=== PATIENT | male | born 1945 | race Caucasian/White ===

== ENCOUNTER 2023-09-09 08:53 | Outpatient (CLI) | payer MEDICARE, BC, SELFPAY ==
--- NOTE | 2023-09-09 | ECHO_ITS ---
Patient Info Name: Moy Tabares Age: 77 years : 1945 Gender: Male Ht: 62 in Wt: 184 lbs BSA: 1.95 m2 HR: 52 bpm BP: 167 / 77 mmHg Heart Rhythm: Sinus Rhythm Technical Quality: Fair Exam Date: 09/09/2023 9:15 AM Exam Location: Echo Lab Patient Status: Outpatient Admit Date: 09/09/2023 Staff Ordering Physician: GeovanniJas MD Agent Licensing Clerk: Samantha Dent RDCS Attending Provider: GeovanniJas MD Exam Type: CA echo doppler color flow Study Info Indications R01.1 - Cardiac murmur, unspecified Complete two-dimensional, color flow and Doppler transthoracic echocardiogram is performed. Summary 1. Complete two-dimensional, color flow and Doppler transthoracic echocardiogram is performed. 2. Normal left ventricular size and systolic contractility. 3. Grade 1 diastolic noncompliance. 4. Mildly sclerotic aortic valve with adequate leaflet excursion. Left Ventricle Left ventricular chamber dimension is normal. Left ventricular systolic function is normal, estimated at 60-65%. The left ventricular diastolic function is grade I diastolic dysfunction. Right Ventricle Right ventricular chamber dimension is normal. Left Atria Left atrial chamber dimension is mildly enlarged. Right Atria Right atrial chamber dimension is normal. Aortic Valve The aortic valve is trileaflet. There is mild aortic valve sclerosis. Pulmonic Valve The pulmonic valve is normal. Mitral Valve The mitral valve has normal leaflets. Tricuspid Valve The tricuspid valve leaflets are normal. There is trace tricuspid valve regurgitation. Pericardium/Pleural The pericardium appears normal. Aorta The aortic root size at the sinus of Valsalva is normal. Left Ventricular Outflow Tract Name Value Normal LVOT 2D LVOT Diameter 2.0 cm LVOT Doppler LVOT Peak Gradient 8 mmHg LVOT Mean Gradient 4 mmHg LVOT VTI 30 cm LVOT VTI/AV VTI Ratio 0.8 LVOT Stroke Volume 93 ml LVOT CO 5.6 l/min LVOT CI 2.9 l/min/m2 Pulmonic Valve Name Value Normal RVOT Doppler RVOT Peak Gradient 4 mmHg PV Doppler PV Peak Gradient 4 mmHg Mitral Valve Name Value Normal MV Doppler MV Decel [place] 315 cm/s2 MV PHT 79 ms MV Area (PHT) 2.8 cm2 4.0-5.0 MV Diastolic Function
== END 2023-09-09 08:54 | disposition home or self-care (01) ==
LOC: ANHCARD 09:01
PROVIDERS: PCP Internal Medicine; Visit Provider Internal Medicine
DX: R01.1 Cardiac murmur, unspecified (principal); I35.8 Other nonrheumatic aortic valve disorders
CPT/HCPCS: 93306

== ENCOUNTER 2023-09-16 14:44 | Outpatient (CLI) | payer MEDICARE, SELFPAY ==
--- NOTE | ~2023-09-16 | CT_ITS ---
Non-contrast CT scan of the Abdomen and Pelvis Clinical indication: Incisional hernia Technique: 2.5 mm axial scans were obtained through the abdomen and pelvis without intravenous or or al contrast. Dose reduction technique was used on this scan by utilizing automated exposure control a nd iterative reconstruction technique. The dose-length product (DLP) was 1365.87 mGy-cm. Findings: Images through the lung bases reveal no abnormalities. There is no evidence of renal or ureteral calculi. The kidneys and the ureters are nondilated. The liver, spleen, pancreas, gallbladder, and adrenals appear normal. There are atherosclerotic calci fications of the aorta. There is no evidence of bowel obstruction. There is a small to moderate fat-containing umbilical oracio ia which also contains one wall of focal loop of small bowel. Images through the pelvis were performed. There is no evidence of ascites or lymphadenopathy. Evidenc e of prior probable prostatectomy. Possible bladder mass in the posterior bladder versus residual pro state gland measuring 2.2 cm in diameter. Impression: 2.2 cm posterior inferior bladder mass versus possibly residual prostate gland. Evidence of prior pro statectomy. Correlate clinically. Cystoscopy should be considered for further evaluation. Small to moderate fat-containing umbilical hernia which also contains one wall of a focal loop of sma ll bowel. No bowel wall thickening or obstruction. Reviewed, dictated and finalized at [facility]. Impression: 2.2 cm posterior inferior bladder mass versus possibly residual prostate gland. Evidence of prior prostatectomy. Correlate clinically. Cystoscopy should be co nsidered for further evaluation. Small to moderate fat-containing umbilical hernia which also contains one wall of a focal loop of small bowel. No bowel wall thickening or obstruction.
== END 2023-09-16 14:45 | disposition home or self-care (01) ==
PROVIDERS: PCP Internal Medicine; Visit Provider Surgery
DX: K43.2 Incisional hernia without obstruction or gangrene (principal); K42.9 Umbilical hernia without obstruction or gangrene
CPT/HCPCS: 74176

== ENCOUNTER 2023-11-04 12:48 | Outpatient (CLI) | payer MEDICARE, SELFPAY ==
--- NOTE | 2023-11-04 13:24 | ECG_ITS ---
Test Date: 2023-11-04 13:46:20 Measurements Intervals [place] Rate: 61 P: 109 IA: 170 QRS: -1 QRSD: 94 T: 50 QT: 391 QTc: 395 Interpretive Statements SINUS RHYTHM EARLY PRECORDIAL R/S TRANSITION VOLTAGE CRITERIA FOR LVH CONSIDER INFERIOR INFARCT, AGE INDETERMINATE BASELINE ARTIFACT- I, II, III, AVR, AVL, AVF, V1-V6 ABNORMAL ECG No previous ECG available for comparison Electronically Signed On 11-04-2023 14:30:44 CDT by José Miguel Guzman D.O.
== END 2023-11-04 12:49 | disposition home or self-care (01) ==
LOC: ANHSURGERY 12:54
PROVIDERS: PCP Internal Medicine; Visit Provider Surgery
DX: I10 Essential (primary) hypertension (principal); Z98.890 Other specified postprocedural states; Z01.818 Encounter for other preprocedural examination; R94.31 Abnormal electrocardiogram [ECG] [EKG]
CPT/HCPCS: 36415; 86850; 86900; 86901; 93005

== ENCOUNTER 2023-11-07 14:24 | Inpatient (IN) | payer MEDICARE, SELFPAY ==
--- NOTE | 2023-11-01 14:16 | PC.NURSE ---
Report to the Outpatient Waiting Room, entrance under the green pavilion located off [facility], at time _8:30 AM on date __11/06/23 . Planned Procedure Time: _10:30 AM . Time changes happen often and if your time is changed the preop area will call you the afternoon before. - You and your visitor will be asked to self-screen and do not enter if you have any COVID symptoms. - A mask is optional within the hospital at this time. Patients may have clear liquids (water, carbonated beverages, clear teas, apple juice) until 3 hours prior to surgery( 7: 30 AM) with a maximum of 20 ounces. - No food from midnight until time of surgery - Infants may have breast milk until 4 hours before surgery, formula 6 hours prior to surgery. - Children will be allowed to drink immediately following surgery. If applicable, please bring a bottle or sippy cup to assist with drinking. Juice, water, soda, and popsicles are readily available. For infants on formula, please bring formula the day of surgery. Pacifiers are allowed. Take the following medications with a SIP of water the morning of surgery: __NONE DO NOT STOP ANY OF YOUR OTHER PRESCRIPTION MEDICATIONS PRIOR TO SURGERY ?EXCEPT THE FOLLOWING Medications to discontinue per physician HOLD ALL VITAMINS AND SUPPLEMENTS 3 DAYS PRE OP .LAST DOSE 11/02/23 MAY CONTINUE [address] GARIBAY BUT DO NOT TAKE MORNING OF SURGERY Please no make-up, nail gabonese, hairspray, perfume, deodorant, or body powder the day of surgery. No jewelry (including any body piercings) or valuables the day of surgery, leave them at home. Please take a shower or bath the night before, or the morning of, surgery with an antibacterial soap. Wear comfortable, loose fitting clothing. Children are encouraged to wear pajamas. - Jewelry must be removed prior to entering the operating room. Rings and piercings that are not removed may be cut off. - The hospital will not accept responsibility for valuables. - Please leave all valuables, including medications, at home the day of surgery. If you are going home after surgery, a licensed electric truck driver must drive you home. - NO public transportation without another adult if you receive anesthesia. - We recommend that an adult stay with you for 24 hours following discharge. - We also recommend that you do not drive, make important decision, drink alcoholic beverages, or take any drugs that were not prescribed by your health care provider for at least 24 hours after your discharge time. For Pediatric surgeries, we recommend two adults accompany the child home. Follow any additional instructions given to you from your surgeon. If you or anyone in your household have experienced Covid symptoms in the past week, please notify your surgeon or the nurse liaison at the phone number below for possible testing. Telephone instructions given to ____PATIENT and asked if any additional questions and then verbalized understanding. Patient advised to call surgeon office or pre surgery nurse liaison [phone] if any additional questions.
[2023-11-01 14:29] VITALS: BMI 33.8
[2023-11-06] VITALS (16 sets, daily range): BP systolic 129–168; BP diastolic 45–86; PULSE 63–83; RESP 16–22; TEMP 36.3–36.9; O2SAT 98–100
[2023-11-06] MEDS: LACTATED RINGERS 1,000 ML 30 ML IV CONT ×3 (09:00→16:45)
--- NOTE | 2023-11-06 09:36 | P.PNAN_ITS ---
Anes - Initial Pre Proc Eval Procedure: Operation Date: 11/06/23 10:30 Proposed Procedures p Robotic Assisted Laparoscopic Extended Totally Extraperitoneal Periumbilical Hernia Repair with Mesh - Neftali Partida MD Date/Time: 11/06/23 09:36 Surgeon: Neftali Partida MD Pre Op Diagnosis: reducible periumbilical ventral hernia repair Patient Data Age: 77 Gender: M Height: 1.57 m Weight: 83.95 kg Allergies Allergy/AdvReac Type Severity Reaction Status Date / Time No Known Allergies Allergy Verified 11/01/23 14:11 Home Medications Medication Instructions Recorded Confirmed Type aspirin 81 mg tablet,delayed 81 mg PO DAILY 09/11/23 11/01/23 History release cholecalciferol (vitamin D3) 50 50 mcg PO DAILY 09/11/23 11/01/23 History mcg (2,000 unit) capsule docosahexaenoic acid (dha)-epa 120 1 cap PO DAILY 09/11/23 11/01/23 History mg-180 mg capsule (Fish Oil) lisinopril 20 mg tablet 20 mg PO DAILY 09/11/23 11/01/23 History mecobalamin (vitamin B12) 1,000 1,000 mcg PO DAILY 09/11/23 11/01/23 History mcg lozenges tamsulosin 0.4 mg capsule 0.4 mg PO DAILY 09/11/23 11/01/23 History Patient hx anesthesia problems: none Family hx anesthesia problems: none Results Review: All pre-operative results and documents have been reviewed as part of the pre- operative evaluation. [facility] Past Medical History Medical History Diabetes Family History Family History Father Heart disease Other Hypertension Social History Social History Smoking packs per day: 1 Smoking cigarettes per day: 20.0 Years smoked: 25 Smoking pack-years: 25.00 Smoking status: Former smoker Tobacco type: cigarettes Smoking end date: 04/08/03 Alcohol intake: never Do You Feel Safe in your Home?: Yes Lack of Transportation: No Lack of Food: Never True Concerned About Future Housing: No Difficulty Paying Gas/Electric Bills: No Difficulty Paying for Meds: No Currently Unemployed: No Education: Grade School Difficulty w/ Childcare or Family Care: No Living arrangements: alone Spiritual care concerns: No Anes - Eval Final PreProcedure Day of Procedure 11/06/23 09:36 Patient weight: obese Heart: regular rate and rhythm Lungs: clear to auscultation Airway: Mallampati scale class II Neurological: alert and oriented Last oral intake: >/= 8 hours ASA classification: III Emergent: no Anesthetic plan: proceed Anesthesia type and monitoring: general ETT and standard monitoring Results Review: All pre-operative results and documents have been reviewed as part of the pre- operative evaluation. Informed Consent: The patient's anesthetic plan and its attendant risks and benefits were discussed with the patient/family/POA. Questions were solicited and answers provided to the satisfaction of the patient/family/POA.
[2023-11-06] MEDS: ACETAMINOPHEN 500 MG TABLET 1000 MG PO ×2 (09:46→21:32)
[2023-11-06] MEDS: KETOROLAC 15 MG/ML VIAL (*BKC) IV PUSH (09:46)
--- NOTE | 2023-11-06 11:04 | PM.IMHP ---
H&P: HPI History of Present Illness Date/Time: 11/06/23 11:04 Chief Complaint: Periumbilical ventral hernia Narrative: RV returns for a recheck of a incisional hernia and to discuss recent CT scan from 09/16/23. Findings showed a small to moderate fat-containing umbilical hernia which also contains one wall of a focal loop of small bowel. No bowel wall thickening or obstruction. Patient denies any abdominal discomfort and no changes since his last office visit. Review of Systems Review of Systems: The remainder of the review of systems to include constitutional, HEENT, cardiovascular, respiratory, GI, , integumentary, musculoskeletal, endocrine, immunologic, hematologic, psychiatric, and neurologic are all negative except for which is mentioned above in the HPI. [facility] Past Medical History Medical History Diabetes Family History Family History Father Heart disease Other Hypertension Social History Social History Smoking packs per day: 1 Smoking cigarettes per day: 20.0 Years smoked: 25 Smoking pack-years: 25.00 Smoking status: Former smoker Tobacco type: cigarettes Smoking end date: 04/08/03 Alcohol intake: never Do You Feel Safe in your Home?: Yes Lack of Transportation: No Lack of Food: Never True Concerned About Future Housing: No Difficulty Paying Gas/Electric Bills: No Difficulty Paying for Meds: No Currently Unemployed: No Education: Grade School Difficulty w/ Childcare or Family Care: No Living arrangements: alone Spiritual care concerns: No Meds Home Medications and Allergies Home Medications Medication Instructions Recorded Confirmed Type aspirin 81 mg tablet,delayed 81 mg PO DAILY 09/11/23 11/06/23 History release cholecalciferol (vitamin D3) 50 50 mcg PO DAILY 09/11/23 11/01/23 History mcg (2,000 unit) capsule docosahexaenoic acid (dha)-epa 120 1 cap PO DAILY 09/11/23 11/01/23 History mg-180 mg capsule (Fish Oil) lisinopril 20 mg tablet 20 mg PO DAILY 09/11/23 11/01/23 History mecobalamin (vitamin B12) 1,000 1,000 mcg PO DAILY 09/11/23 11/01/23 History mcg lozenges tamsulosin 0.4 mg capsule 0.4 mg PO DAILY 09/11/23 11/01/23 History Allergies Allergy/AdvReac Type Severity Reaction Status Date / Time No Known Allergies Allergy Verified 11/06/23 09:47 Vital Signs Vital Signs - 24 hr 11/06/23 09:00 Temperature 36.3 C L Pulse Rate 73 Respiratory Rate 16 Blood Pressure 159/60 H Pulse Oximetry 100 Oxygen Delivery Room Air Exam Const: General: comfortable and no acute distress HENMT: Ears: TM's normal bilaterally Face/Nose/Sinus: Normal nares present Mouth: Yes moist mucous membranes Eyes: General: appearance normal, both eyes and all related structures Sclera: sclerae normal Pupils: Equal, round and reactive pupils present EOM: EOMs intact bilaterally Neck: Neck: supple and no JVD Resp: Effort & Inspection: normal respiratory effort Auscultation: clear to auscultation bilaterally Cardio: Rate: regular rate Rhythm: regular rhythm GI: Other: Soft, nontender. Large infraumbilical midline scar from prostatectomy. He has a large epigastric diastasis measuring 17cm x10cm and reducible periumbilical incisional hernia with a 2-3cm defect. Hernia at the superior portion of incision from open prostatectomy. Skin: General skin exam: normal color and no rashes or lesions noted Neuro: General: gait normal Speech: normal speech Motor exam (neuro): 5/5 motor strength present throughout Sensory Exam: normal sensation Extrem: General: normal to inspection Psych: Mental Status: mental status grossly normal Affect: normal affect H&P: Results Imaging CT scan - abdomen: Radiologist's impression: Non-contrast CT scan of the Abdomen and Pe
--- NOTE | 2023-11-06 11:08 | WPDHPUPDATE1 ---
History and Physical Update Update Date/Time: 11/06/23 11:08 History and Physical has been reviewed, including an updated exam of the patient. There are NO changes in the patient's condition. Risks, benefits, and alternatives have been discussed and questions answered. Patient agrees to proceed with procedure.
[2023-11-06] MEDS: ceFAZolin 2 GM/D5W 50 ML 2 GM/50 ML BAG IVPB (11:22)
[2023-11-06] MEDS: BUPivacaine HCL 0.5% 10 ML AMP 30 ML INFILTRATE (12:10)
[2023-11-06] MEDS: LIDO 1%/EPINEPHRINE 1:100,000 50 ML VIAL 30 ML INFILTRATE (12:10)
--- NOTE | 2023-11-06 14:46 | W.PM.PROC2 ---
Procedure Note - Detailed Date of Procedure 11/06/23 Pre-op Diagnosis Incarcerated periumbilical ventral hernia Post-op Diagnosis Same Procedure Performed Robotic assisted laparoscopic extended total extraperitoneal incarcerated ventral hernia repair with Synecor mesh ( [id number] ). Surgeon Neftali Partida MD [employer] Xavier Jameson [employer] Anesthesia General Indications Patient is a 77-year-old white male who presented with an enlarging bulge just at his umbilicus. He had a prior open prostatectomy surgery port trim lower midline incision. A preoperative CT scan showed some omentum within the hernia sac and the anti mesenteric side of a loop of small bowel within the hernia sac. No obstructive signs were seen. No other ventral hernias are noted. Presents now for a robotic assisted laparoscopic extended total extraperitoneal (ETEP) incarcerated periumbilical ventral hernia repair with Synecor mesh. Findings Patient actually had omentum which was incarcerated within the hernia sac. The hernia was located just at the level of the umbilicus. Did not appear to be associated with a incisional hernia the lower abdominal wall. There was no evidence of bowel involvement with the hernia. The defect measured 3.5cm in diameter. Description of Procedure After informed consent was obtained patient brought to the operating room placed supine position and general endotracheal anesthesia was administered. A Santiago catheter was placed decompress the bladder. The abdomen was then prepped and draped usual sterile fashion. A time-out was then performed correctly identifying the patient as well as procedure to be performed. He was given perioperative IV antibiotics. I first started by utilizine a 5mm Optiview port in the left upper quadrant. to enter the retrorectus space on the left side. Once inside the space insufflated and then used the camera to bluntly dissect the posterior rectus fascia away from the rectus muscle fibers. Once I had enough space laterally and inferior to the initial port placement I then placed an 8mm robotic trocar port. This then allowed me to use laparoscopic hook cautery device to further divide the wispy adventitial tissues the posterior rectus fascia from the rectus muscle fibers. The dissection carried out laterally to the linea semilunaris on the left side. I then placed additional 8mm robotic trocar ports on the left lateral abdominal wall anterior to the linea semilunaris. The [employer] robot was then docked to the patient's bedside and the 5mm left upper quadrant trocar port was switched out to a 12mm bedside economic research assistant trocar port robotic instruments were advanced into the abdomen under direct visualization. I then scrubbed out the procedure sent down the robotic console to perform the dissection robotically. Utilizing robotic hook electrocautery I then further divided the tissues and the posterior rectus fascia from the rectus muscle fibers until medially I encountered the linea alba. Patient a wide linea alba and had a diastasis in the epigastric region of the abdomen. Once I dissected inferiorly below the arcuate line I then was in the pre transversalis space and dissected in the space all the way down to almost the groin region. The inferior epigastric vessels were identified left up with the rectus muscle fibers. I then incised the posterior rectus sheath on the left side about 1cm away from the linea alba. I started cephalad near the xiphoid process and carried it inferiorly all the way to the pubic region. I then did my cross over keeping the epigastric fat pad posterior to keep it from getting into the abdomen. I then incised the posterior rectus sheath on the right side and then divided this about 1cm away from the right side of the linea alba. The posterior rectus space was then dissected out on the right side out laterally to the linea semilunaris taking great care not to injure the neurovasc
[2023-11-06] MEDS: oxyCODONE HCL (*CRX) 5 MG TAB IR PO (16:46)
--- NOTE | 2023-11-06 19:50 | ADMGEN ---
This patient, Asha Tabares, was admitted to Medical Room 349-01. Patient/family oriented to hospital policies and general routines including ID bracelet, bed and alarms, visiting hours, pain management, procedures, bathroom and other care routines, personal items, smoking policy, room service/diet, and visiting hours. Information on how to activate the Rapid Response Team has been discussed. Patient/Family are encouraged to report perceived risks to care and to ask questions if they do not understand what they are told or what they should do.
[2023-11-06 20:30] LABS: Glucose Point of Care 194 mg/dl (65-105)
[2023-11-07] VITALS: BP 139/58; PULSE 59; RESP 20; TEMP 36.7; O2SAT 98
[2023-11-07 04:00] VITALS: BP 149/50; PULSE 69; RESP 20; TEMP 36.1; O2SAT 99
[2023-11-07] MEDS: ACETAMINOPHEN 500 MG TABLET 1000 MG PO (04:15)
--- NOTE | 2023-11-07 05:29 | PC.NURSE ---
Patient has urge to void but cannot. Bladder scan earlier showed 234mls of urine after incontinent episode. Since then patient has called three times to void without results. Straight cath patient with result of 650mls of clear yellow urine. Patient states his bladder feels empty and does not feel the urge to void.
[2023-11-07 08:00] VITALS: BP 135/67; PULSE 60; RESP 18; TEMP 36; O2SAT 96
[2023-11-07] MEDS: lisinopriL 20 MG TABLET PO (08:35)
[2023-11-07] MEDS: TAMSULOSIN HCL 0.4 MG CAPSULE PO (08:35)
[2023-11-07] MEDS: PANTOPRAZOLE 40 MG TABLET PO (08:35)
[2023-11-07] MEDS: ENOXAPARIN 40 MG/0.4 ML SYRINGE SUB-Q (08:35)
[2023-11-07] MEDS: ASPIRIN 81 MG ENTERIC TABLET PO (08:35)
[2023-11-07] MEDS: CHOLECALCIFEROL 1,000 UNITS TABLET 2000 UNITS PO (10:01)
--- NOTE | 2023-11-07 12:41 | PM.PNGS ---
Progress Note: A&P Assessment and Plan (1) Ventral hernia: Qualifiers: Obstruction and gangrene presence: without obstruction or gangrene Qualified Code(s): K43.9 - Ventral hernia without obstruction or gangrene Code(s): K43.9 - Ventral hernia without obstruction or gangrene Status: Acute Assessment and Plan: Postop day 1 following robotic-assisted laparoscopic extended total extraperitoneal incarcerated ventral hernia repair with mesh. Patient is having issues with urinary retention and has had straight cath x 1 early this morning. He continues to have high post void residual, although able to void a small amount this morning. He has a history of prostatectomy, and is currently on Flomax. Will consult Urology for their recommendations on the need for an indwelling urinary catheter and follow-up. Once he is stable from a Urology standpoint to discharge, we would be okay with discharge him home from a surgery standpoint. Plan I have discussed the patient's case and plan of care with Dr. Partida. Subjective Subjective Date/Time Seen: 11/07/23 12:41 Post Op day: 1 (Robotic assisted laparoscopic extended total extraperitoneal incarcerated ventral hernia repair with mesh) Patient reports: tolerating a regular diet, flatus and no bowel movement Interval history: Postop soreness and incisional pain well controlled. Ambulating without difficulty. Urinary retention overnight. Bladder scan over 400 cc last night and he had straight cath that yielded over 600 cc urine. About 5 hours later, bladder scan repeated and showed 440 cc of urine. He was able to urinate about 100 cc. He has a history of a prostatectomy. He is on Flomax, which was already resumed. Exam Const: General: comfortable and no acute distress Orientation/consciousness: patient oriented x3 GI: Inspection: non-distended and incision (incisions dry and intact, no erythema, ecchymosis around umbilicus) GI Palp: Yes Soft to palpation and Yes Other GI palpation findings present (umbilical hernia repair intact) Auscultation: normal bowel sounds Objective Data Vital Signs Vital Signs: Vital Signs - 24 hr 11/06/23 14:45 11/06/23 15:00 11/06/23 15:15 Temperature Pulse Rate 75 72 69 Respiratory Rate 18 22 H 18 Blood Pressure 140/52 L 143/64 H 143/61 H Pulse Oximetry 100 100 100 Oxygen Delivery Simple Face Mask Simple Face Mask Simple Face Mask Oxygen Flow Rate 6 6 8 11/06/23 15:30 11/06/23 15:34 11/06/23 15:45 Temperature Pulse Rate 63 66 73 Respiratory Rate 16 18 20 Blood Pressure 141/59 H 131/56 L Pulse Oximetry 100 100 99 Oxygen Delivery Simple Face Mask Simple Face Mask Room Air Oxygen Flow Rate 8 8 11/06/23 16:00 11/06/23 16:15 11/06/23 16:19 Temperature Pulse Rate 73 65 79 Respiratory Rate 16 16 16 Blood Pressure 135/65 129/63 146/61 H Pulse Oximetry 98 100 Oxygen Delivery Room Air Room Air Oxygen Flow Rate 11/06/23 16:45 11/06/23 17:15 11/06/23 17:45 Temperature Pulse Rate 75 67 83 Respiratory Rate 16 16 16 Blood Pressure 148/45 H 164/61 H 168/86 H Pulse Oximetry Oxygen Delivery Oxygen Flow Rate 11/06/23 18:15 11/06/23 18:45 11/06/23 20:00 Temperature Pulse Rate 71 80 Respiratory Rate 16 16 Blood Pressure 160/65 H 160/59 H Pulse Oximetry Oxygen Delivery Room Air Oxygen Flow Rate 11/06/23 21:22 11/07/23 00:00 11/07/23 04:00 Temperature 98.4 F 98.0 F 97.0 F L Pulse Rate 74 59 L 69 Respiratory Rate 20 20 20 Blood Pressure 137/48 L 139/58 L 149/50 H Pulse Oximetry 98 98 99 Oxygen Delivery Oxygen Flow Rate 11/07/23 08:00 11/07/23 08:37 Temperature 96.8 F L Pulse Rate 60 Respiratory Rate 18 Blood Pressure 135/67 Pulse Oximetry 96 Oxygen Delivery Room Air Oxygen Flow Rate Intake/Output Intake/Output: Intake & Output 11/04/23 11/05/23 11/06/23 11/07/23 23:59 23:59 23:59 23:59 Intake Total 1150 640 Output Total 184 7135
--- NOTE | 2023-11-07 13:17 | WPDANESPN ---
Anes - Prog Note Post-Op Date/Time: 11/07/23 13:17 Vital Signs: Last Vital Signs Temp 36.0 C L 11/07/23 08:00 Pulse 60 11/07/23 08:00 Resp 18 11/07/23 08:00 BP 135/67 11/07/23 08:00 Pulse Ox 96 11/07/23 08:00 O2 Del Method Room Air 11/07/23 08:37 O2 Flow Rate 8 11/06/23 15:34 Pain Score (VAS): 0 I/O: Intake & Output 11/06/23 11/07/23 11/07/23 23:59 07:59 15:59 Intake Total 1100 400 480 Output Total 375 1300 25 Balance 725 -900 455 11/06/23 20:24 POC Capillary Glucose 194 H Patient Feedback: Patient satisfied with anesthetic care.
--- NOTE | 2023-11-07 13:51 | PM.DS ---
DS: Admitting Diagnosis Discharge Date 11/07/2023 Admitting Diagnosis Periumbilical hernia DS: Discharge Diagnosis Discharge Diagnosis (1) Incarcerated ventral hernia: Code(s): K43.6 - Other and unspecified ventral hernia with obstruction, without gangrene Status: Acute (2) Urinary retention: Code(s): R33.9 - Retention of urine, unspecified Status: Acute DS: Summary Hospital Course Reason for hospitalization: This is a 77-year-old man who presented for a robotic assisted laparoscopic extended total extraperitoneal incarcerated periumbilical ventral hernia repair with mesh by Dr. Partida. He was seen as an outpatient for evaluation of an enlarging bulge at his umbilicus by Dr. Partida. After discussions were had, decision was made to proceed with surgical repair. Hospital Course: He underwent robotic assisted laparoscopic extended total extraperitoneal incarcerated ventral hernia repair with mesh by Dr. Partida on 11/06/2023. This was scheduled as an outpatient surgery. The patient dealt with urinary retention postoperatively and was kept overnight for monitoring. He had to have a straight cath x1 early this morning. He continued to have issues with urinary retention and had a high bladder scan again this morning. The bladder scan was around 440 cc and he was only able to void 100 cc. The patient has a history of prostatectomy and is currently taking Flomax, which was resumed postoperatively. Given his history and postoperative urinary retention, Urology was consulted for their recommendations. The patient ended up voiding more after this second bladder scan and was cleared by Urology to be discharged with close follow-up. He is surgically stable for discharge this afternoon. He is tolerating a diet and tolerating activity well. Postoperative incisional pain is well controlled. Status at Discharge Functional status at discharge: independent ambulation Overall status at discharge: patient is progressing back to baseline Time Spent with Patient Time attestation: Total time spent providing and/or coordinating discharge services: Time spent: Less than 30 minutes DS: Data Data Completed and Pending Labs on day of discharge: Labs from last 24 hours 11/06/23 20:24 POC Capillary Glucose 194 H Procedures/Treatments: Procedures Operation Date: 11/06/23 10:30 Actual Procedure Side Surgeon p Robotic Assisted Laparoscopic Extended Totally Extraperitoneal Periumbilical Hernia Repair with Mesh Neftali Partida MD Discharge Plan Discharge Patient Disposition: Home, Self-Care Discharge Instructions: May discharge home with stable. Follow-up in the office with Dr. Partida in 2 weeks. Patient to call [phone] for an appointment. No lifting more than 5 to 10 lb for 4 to 6 weeks. If abdominal binder is in place than where night and day for 2 weeks. May remove abdominal binder to shower. May shower 24hours after surgery but no soaking of the incisions under water for 2 weeks. Resume all home medications and a prescription for narcotic pain medications will be sent to the patient's pharmacy if needed. May use Tylenol and/or ibuprofen in addition to or in place of narcotic pain medications. Follow-up with Urology in the next 1-2 weeks. Call for appointment. Patient must be able to spontaneously urinate before being discharged. Stand Alone Forms: General Discharge Instructions Follow-up/Referrals: Dayo Calero MD [Physician] - Neftali Partida MD [Physician] - Discharge Medications: New oxycodone 5 mg tablet 5 mg PO Q6H PRN (Reason: pain) Qty: 15 0RF Continued aspirin 81 mg tablet,delayed release (DR/EC) 81 mg PO DAILY lisinopril 20 mg tablet 20 mg PO DAILY tamsulosin 0.4 mg capsule 0.4 mg PO DAILY mecobalamin (vitamin B12) 1,000 mcg lozenge 1,000 mcg PO DAILY Rx Instructions: allow to dissolve in mouth OR may chew lightly before swallowing
--- NOTE | 2023-11-07 13:51 | WPDURCON ---
Assessment and Plan Assessment and plan (1) Urinary retention: Code(s): R33.9 - Retention of urine, unspecified Status: Acute Assessment and Plan: Postoperative urinary retention noted with bladder scan of 600 cc. Patient has been able to void spontaneously and most recent bladder scan was about 250 cc. Suspect this was related to anesthesia and anticipate continued improvement. Limit narcotics and manage constipation. Will plan for outpatient follow up in 1-2 weeks for repeat bladder scan to ensure he continues to empty well. (2) BPH (benign prostatic hyperplasia): Code(s): N40.0 - Benign prostatic hyperplasia without lower urinary tract symptoms Status: Acute Assessment and Plan: Continue tamsulosin Urology Consult Note HPI Date Seen: 11/07/23 Requesting Physician: Neftali Partida MD Primary Care Provider: Jas Galarza, Consult Narrative Narrative: Asha Tabares is a 78 year old male with a history of prostate cancer s/p prostatectomy many years ago and BPH who is currently admitted after undergoing umbilical hernia repair. He developed postoperative urinary retention. This morning a bladder scan was completed that showed 600 c. He was able to void some and later in the day had bladder scan of 450 cc. At the time of my evaluation, he had just voided 250 cc and reported no difficulty in doing so. Bladder scan was performed at the bedside with about 250 cc. He reports occasionally has some feelings of incomplete emptying. He denies straining to void, dribbling, or urinary retention. He is maintained on tamsulosin. He denies dysuria or hematuria. Review of Systems Review of Systems: All systems reviewed & are unremarkable except as noted in HPI and below PMFSH Past Medical History Medical History (Updated 11/07/23 @ 14:11 by Jacinda Marley PA-C) BPH (benign prostatic hyperplasia) Diabetes Surgical History Surgical History (Updated 11/07/23 @ 13:53 by JUNIOR Maher) History of prostatectomy Family History Family History Father Heart disease Other Hypertension Social History Social History Smoking packs per day: 1 Smoking cigarettes per day: 20.0 Years smoked: 25 Smoking pack-years: 25.00 Smoking status: Former smoker Tobacco type: cigarettes Smoking end date: 04/08/03 Alcohol intake: never Substance use: never Substance use type: does not use Do You Feel Safe in your Home?: Yes Lack of Transportation: No Lack of Food: Never True Current Housing: I Have Housing Concerned About Future Housing: No Difficulty Paying Gas/Electric Bills: No Difficulty Paying for Meds: No Currently Unemployed: No Education: Decline to Answer Difficulty w/ Childcare or Family Care: No Living arrangements: alone Spiritual care concerns: No Meds Home Medications and Allergies Home Medications Medication Instructions Recorded Confirmed Type aspirin 81 mg tablet,delayed 81 mg PO DAILY 09/11/23 11/06/23 History release cholecalciferol (vitamin D3) 50 50 mcg PO DAILY 09/11/23 11/01/23 History mcg (2,000 unit) capsule docosahexaenoic acid (dha)-epa 120 1 cap PO DAILY 09/11/23 11/01/23 History mg-180 mg capsule (Fish Oil) lisinopril 20 mg tablet 20 mg PO DAILY 09/11/23 11/01/23 History mecobalamin (vitamin B12) 1,000 1,000 mcg PO DAILY 09/11/23 11/01/23 History mcg lozenges tamsulosin 0.4 mg capsule 0.4 mg PO DAILY 09/11/23 11/01/23 History oxycodone 5 mg tablet 5 mg PO Q6H PRN pain #15 tabs 11/06/23 Rx Allergies Allergy/AdvReac Type Severity Reaction Status Date / Time No Known Allergies Allergy Verified 11/06/23 09:47 Vital Signs Vital Signs - 24 hr 11/06/23 14:45 11/06/23 15:00 11/06/23 15:15 Temperature Pulse Rate 75 72 69 Respiratory Rate 18 22 H 18 Blood Pressure 140/52
[2023-11-07 14:44] VITALS: BP 121/59; PULSE 60; RESP 16; TEMP 36; O2SAT 100
== END 2023-11-07 15:20 | disposition home or self-care (01) | DRG 355 ==
LOC: ANHSURGERY 14:27 → ANH3MED 14:27
PROVIDERS: Admitting Provider Surgery; PCP Internal Medicine; Visit Provider Surgery
PROC: 0WUF4JZ Supplement Abdominal Wall with Synthetic Substitute, Percutaneous Endoscopic Approach (ICD-10-PCS; principal; 2023-11-06 10:30)
DX: K43.6 Other and unspecified ventral hernia with obstruction, without gangrene (principal); E11.9 Type 2 diabetes mellitus without complications; N40.1 Benign prostatic hyperplasia with lower urinary tract symptoms; R33.8 Other retention of urine; Z87.891 Personal history of nicotine dependence; Z79.82 Long term (current) use of aspirin
CPT/HCPCS: 36415; 82948; 86850; 86900; 86901; 93005; A9270; J0360; J0690; J1100; J1596; J1650; J1885; J2405; J2704; J3010; J7030; J7120

== ENCOUNTER 2023-11-28 02:02 | Day surgery (SDC) | payer MEDICARE, SELFPAY ==
[2023-11-26 09:41] VITALS: BMI 34.4
--- NOTE | 2023-11-26 09:54 | PC.NURSE ---
Report to the Outpatient Waiting Room, entrance under the green pavilion located off [facility], at 0715 on 11/28/23. Planned Procedure Time: 0915. Time changes happen often and if your time is changed the preop area will call you the afternoon before. - You and your visitor will be asked to self-screen and do not enter if you have any COVID symptoms. - A mask is optional within the hospital at this time. Patients may have clear liquids (water, carbonated beverages, clear teas, apple juice) until 3 hours prior to surgery with a maximum of 20 ounces. - No food from midnight until time of surgery Take the following medications with a SIP of water the morning of surgery: none DO NOT STOP ANY OF YOUR OTHER PRESCRIPTION MEDICATIONS PRIOR TO SURGERY ?EXCEPT THE FOLLOWING Medications to discontinue per physician vitamins beginning now (LD 11/25/23) Stop ASA per MD Date to take last dose Please no make-up, nail zimbabwean, hairspray, perfume, deodorant, or body powder the day of surgery. No jewelry (including any body piercings) or valuables the day of surgery, leave them at home. Please take a shower or bath the night before, or the morning of, surgery with an antibacterial soap. Wear comfortable, loose fitting clothing. - Jewelry must be removed prior to entering the operating room. Rings and piercings that are not removed may be cut off. - The hospital will not accept responsibility for valuables. - Please leave all valuables, including medications, at home the day of surgery. If you are going home after surgery, a licensed hazardous materials tanker driver must drive you home. - NO public transportation without another adult if you receive anesthesia. - We recommend that an adult stay with you for 24 hours following discharge. - We also recommend that you do not drive, make important decision, drink alcoholic beverages, or take any drugs that were not prescribed by your health care provider for at least 24 hours after your discharge time. Follow any additional instructions given to you from your surgeon. If you or anyone in your household have experienced Covid symptoms in the past week, please notify your surgeon or the nurse liaison at the phone number below for possible testing. Telephone instructions given to patient and asked if any additional questions and then verbalized understanding. Patient advised to call surgeon office or pre surgery nurse liaison [phone] if any additional questions.
[2023-11-28] VITALS (10 sets, daily range): BP systolic 114–180; BP diastolic 50–89; PULSE 44–59; RESP 14–18; TEMP 36.1–36.2; O2SAT 99–100
--- NOTE | 2023-11-28 06:05 | WPDHPUPDATE1 ---
History and Physical Update Update Date/Time: 11/28/23 06:05 History and Physical has been reviewed, including an updated exam of the patient. There are NO changes in the patient's condition. Risks, benefits, and alternatives have been discussed and questions answered. Patient agrees to proceed with procedure.
[2023-11-28] MEDS: LACTATED RINGERS 1,000 ML 30 ML IV CONT (07:45)
[2023-11-28 07:58] LABS: Glucose Point of Care 132 mg/dl (65-105)
--- NOTE | 2023-11-28 08:16 | WPDANESEPPF ---
Anes - Initial Pre Proc Eval Procedure: Operation Date: 11/28/23 09:15 Proposed Procedures p Cystoscopy, Urethral Dilatation - Dayo Calero MD Date/Time: 11/28/23 08:16 Surgeon: Dayo Calero MD Pre Op Diagnosis: bulbous urethral stricture Patient Data Age: 78 Gender: M Height: 1.57 m Weight: 85.28 kg Allergies Allergy/AdvReac Type Severity Reaction Status Date / Time No Known Allergies Allergy Verified 11/26/23 09:39 Home Medications Medication Instructions Recorded Confirmed Type aspirin 81 mg tablet,delayed 81 mg PO DAILY 09/11/23 11/26/23 History release cholecalciferol (vitamin D3) 50 50 mcg PO DAILY 09/11/23 11/26/23 History mcg (2,000 unit) capsule docosahexaenoic acid (dha)-epa 120 1 cap PO DAILY 09/11/23 11/26/23 History mg-180 mg capsule (Fish Oil) lisinopril 20 mg tablet 20 mg PO DAILY 09/11/23 11/26/23 History mecobalamin (vitamin B12) 1,000 1,000 mcg PO DAILY 09/11/23 11/26/23 History mcg lozenges tamsulosin 0.4 mg capsule 0.4 mg PO DAILY 09/11/23 11/26/23 History oxycodone 5 mg tablet 5 mg PO Q6H PRN pain #15 tabs 11/06/23 11/26/23 Rx Laboratory Tests 11/28/23 07:52 POC Capillary Glucose 132 H mg/dl (65-105) Patient hx anesthesia problems: none Family hx anesthesia problems: none Results Review: All pre-operative results and documents have been reviewed as part of the pre-operative evaluation. [facility] Past Medical History Medical History BPH (benign prostatic hyperplasia) Diabetes Surgical History Surgical History History of prostatectomy History of ventral hernia repair Robotic assisted laparoscopic extended total extraperitoneal incarcerated ventral hernia repair with Synecor mesh ( [id number] ). 11/06/23 Family History Family History Father Heart disease Other Hypertension Social History Social History Smoking packs per day: 1.0 Smoking cigarettes per day: 20.0 Years smoked: 25 Smoking pack-years: 25.00 Smoking status: Former smoker Tobacco type: cigarettes Smoking end date: 04/08/03 Alcohol intake: never Substance use: never Substance use type: does not use Last use: 11/26/83 Do You Feel Safe in your Home?: Yes Lack of Transportation: No Lack of Food: Never True Current Housing: I Have Housing Concerned About Future Housing: No Difficulty Paying Gas/Electric Bills: No Difficulty Paying for Meds: No Currently Unemployed: No Education: Decline to Answer Difficulty w/ Childcare or Family Care: No Living arrangements: alone Spiritual care concerns: No Anes - Eval Final PreProcedure Day of Procedure 11/28/23 08:16 Patient weight: obese Heart: regular rate and rhythm Lungs: clear to auscultation Airway: Mallampati scale and special considerations (Edentulous. ) Neurological: alert and oriented Last oral intake: >/= 8 hours ASA classification: III Emergent: no Anesthetic plan: proceed Anesthesia type and monitoring: general LMA and standard monitoring Results Review: All pre-operative results and documents have been reviewed as part of the pre-operative evaluation. MYRIAM (fsbs [id number]). Informed Consent: The patient's anesthetic plan and its attendant risks and benefits were discussed with the patient/family/POA. Questions were solicited and answers provided to the satisfaction of the patient/family/POA.
[2023-11-28] MEDS: ceFAZolin 2 GM/D5W 50 ML 2 GM/50 ML BAG IVPB (09:03)
[2023-11-28] MEDS: LIDOCAINE HCL 2% GEL UROJET 10 ML PKG MUCOUS MEM (09:16)
--- NOTE | 2023-11-28 09:54 | W.PM.PROC2 ---
Procedure Note - Detailed Date of Procedure 11/28/23 Pre-op Diagnosis Bulbous urethral stricture Post-op Diagnosis Other ( bulbous urethral stricture, possible bladder neoplasm) Procedure Performed Cystoscopy with urethral dilatation, biopsy bladder neck tissue Surgeon Dayo Calero MD Anesthesia General Description of Procedure Patient is brought to the operative suite was prepped draped in routine sterile fashion while in dorsal lithotomy position after the uneventful induction of a general LMA anesthetic. Cystoscopy was undertaken with a 19 F rigid cystoscope. He has a very dense bulbous urethral stricture. I dilated that from 8 F to 22 F with Amplatz dilators over a guidewire. Upon performing cystoscopy and then found some very unusual looking tissue at his bladder neck, at approximately the 5 o'clock position. It is difficult to distinguish whether this is arising from the prostate or the bladder. Bladder itself was trabeculated but without obvious additional neoplasm. Using cold cup forceps I obtained a biopsy of this bladder neck tissue and cauterized the base with a Bugbee electrode. An 18 F Councill tip catheter was placed to straight drainage clear efflux was clear at the termination Drains Yes Packing No Pathology Yes Complications No immediate complications
[2023-11-28 10:14] LABS: Glucose Point of Care 131 mg/dl (65-105)
== END 2023-11-28 12:02 | disposition home or self-care (01) ==
PROVIDERS: PCP Internal Medicine; Visit Provider Urology
PROC: 0T7D8ZZ Dilation of Urethra, Via Natural or Artificial Opening Endoscopic (ICD-10-PCS; CPT 52281; principal; 2023-11-28 09:15)
DX: C61 Malignant neoplasm of prostate (principal); R33.9 Retention of urine, unspecified; N32.89 Other specified disorders of bladder; N40.0 Benign prostatic hyperplasia without lower urinary tract symptoms; E11.9 Type 2 diabetes mellitus without complications; E66.9 Obesity, unspecified; Z68.33 Body mass index [BMI] 33.0-33.9, adult; Z79.82 Long term (current) use of aspirin; Z79.891 Long term (current) use of opiate analgesic; Z98.890 Other specified postprocedural states; Z87.891 Personal history of nicotine dependence; Z85.46 Personal history of malignant neoplasm of prostate; Z82.49 Family history of ischemic heart disease and other diseases of the circulatory system
CPT/HCPCS: 52204; 82948; 88305; 88342; C1726; C1769; J0690; J2405; J2704; J7120

== ENCOUNTER 2024-08-17 15:54 | Outpatient (CLI) | payer MEDICARE, SELFPAY ==
--- NOTE | ~2024-08-17 | CT_ITS ---
Non-contrast CT scan of the Abdomen and Pelvis Clinical indication: Prostate cancer Technique: 2.5 mm axial scans were obtained through the abdomen and pelvis without intravenous or or al contrast. Dose reduction technique was used on this scan by utilizing automated exposure control a nd iterative reconstruction technique. The dose-length product (DLP) was 918.93 mGy-cm. COMPARISON: 09/16/2023 Findings: Images through the lung bases reveal no abnormalities. There is no evidence of renal or ureteral calculi. The kidneys and the ureters are nondilated. The liver, spleen, pancreas, gallbladder, and adrenals appear normal. There are atherosclerotic calci fications of the aorta. . There is no evidence of bowel obstruction. Images through the pelvis were performed. There is no evidence of ascites or lymphadenopathy. Urinary bladder unremarkable. Status post prostatectomy. No pelvic mass. Stable focal sclerosis at the left superior pubic ramus. Impression: Stable sclerotic area at the left superior pubic ramus. No evidence for soft tissue metastatic disease or malignancy. Status post prostatectomy. Reviewed, dictated and finalized at [facility]. Impression: Stable sclerotic area at the left superior pubic ramus. No evidence for soft tissue metastatic disease or malignancy. Status post prostatectomy.
--- OUTSIDE RECORDS SUMMARY | 2024-08-17 16:00 | XMS_ITS | Data Portability ---
[facility] Address [address] [facility] [place] [address] Care Team Providers Care Handkerchief Folder Name Role Phone ALE GALARZA Primary Care Provider Assessment Encounter Date Assessment Date Assessment LastModified by Organization Details LastModified Time 08/12/2023 08/12/2023 Obtain old records. Continue current therapy complete echo. Blood work. Surgical referral. Will follow-up with me in 4 months. [email or web address] Not available 08/24/2023 16:49:20 12/16/2023 12/16/2023 hypertension today's blood pressure 142/68 he does not want to go up on medication he says that he just wants to heal from the surgery and he will follow up in the office when he gets back from [place] but he will get it checked when he was in [place] BPH with urinary retention recently stable on Flomax. Prediabetes low carb diet low vitamin-D level supplementing [id number] low B12 he supplements orally he will see me when he gets back from [place] in several months [email or web address] Not available 01/05/2024 15:10:21 07/16/2024 07/16/2024 Reviewed his blood work and his urinalysis Macrobid b.i.d. 5 days orthopedic referral for the shoulders atorvastatin 10 mg daily follow up 3 months [email or web address] Not available 07/18/2024 18:13:06 Plan of Treatment Reminders Order Date Submit Date Provider Last Modified By Organization Details Last Modified Time Details Appointments ANY 15 2024 01:15P Zachery Galarza MD Not available Not available Not available Lab None recorded. Referral orthopedi c surgeon referral 2024 025 marcus Maynard MD, [address], [place], [address], 08/17/2024 15:47:15 general surgeon referral 2023 024 DM Partida MD, [address], [address], [place], [address], 2023 12:52:17 Procedures None recorded. Surgeries None recorded. Imaging US, echocardi ogram 2023 024 [facility] (Cardiology [facility]), [address], [place], [address], 09/09/2023 14:39:18 Medication Orders Macrobid 100 mg capsule 2024 025 [email or web address] [id number], [address], [place], [place], [id number], 07/16/2024 13:40:06 atorvasta tin 10 mg tablet 2024 025 [email or web address] [id number], [address], [place], [place], [id number], 07/16/2024 13:40:06 Patient TargetsNo targets recorded. Patient Instructions Encounter Date Encounter Id Patient Instructions Last Modified By Organization Details Last Modified Time 07/16/2024 [id number] A healthy lifestyle: care instructions [email or web address] Not available 07/16/2024 13:40:06 Reason for Referral General Surgeon Referral for Umbilical hernia Referring Physician: Ale Galarza, Internal Medicine, Encounter Date: 08/12/2023 Orthopedic Surgeon Referral for Bilateral shoulder joint pain Referring Physician: Ale Galarza, Internal Medicine, Encounter Date: 07/16/2024 Results Created Date Observation Date Name Description Value Unit Range Abnormal Flag Note LastModifiedBy Organization Detail LastModifiedTime 09/09/19 24 09/09/2023 US, echoc ardio gram No observ [facility]ion [email or web address] [address], [place], [address], 09/10/2023 10:35:54 09/17/19 24 09/16/2023 CT, abdom en + pelvi s, w/o contr ast No observ ation record ed. [address], [place], [address], 09/19/2023 12:24:01 09/19/19 24 09/09/2023 US, echoc ardio gram No observ ation record ed. [facility] [address], [place], [address], 09/23/2023 13:45:55 Result Notes None recorded. Problems Name Problem SNOMED Code Status Onset Date Resolution Date Notes Provider Name and Address Organization Details Recorded Time Umbilical hernia 698964839 Active 2023 Ale Galarza MD Attn: Lloyd huffman,[address] [place], [address], [facility] 4 16:49:20 Systolic murmur 52375111 Active 2023 Ale Galarza MD Attn: Lloyd huffman,[address] [place], [address], [facility] 4 16:49:21 Essential hypertensio n 22325121 Active 2023 Ale Galarza MD Attn: Lloyd huffman,[address] [place], [address], [place] [facility] 4 16:49:23 Serum vitamin B12 below reference range 092516855 Active 2023 Ale Galarza MD Attn: Lloyd huffman,[address] [place], [address], [place] [facility] 4 16:49:25 Prediabetes 402212653 Active 2023 Ale Galarza MD Attn: Lloyd huffman,[address] [place], [address], [place] - [facility] 4 16:49:27 Benign prostatic hyperplasia 826682447 Active 2023 Ale Galarza MD Attn: Lloyd huffman,[address] [facility], [place], [address], [place] [facility] 4 16:49:28 Hyperlipide belkis 29694999 Active 2024 Sarai Spence MA null, [place] - [facility] 5 12:18:28 Urinary tract infectious disease 50409926 Active 2024 Sarai Spence [place], [place] [facility] 5 12:18:29 Bilateral shoulder joint pain 7243772626854 9104 Active 2024 Sarai Spence [place] null, [place] [facility] 5 12:18:30 Problem Notes None recorded. Procedures Surgical History None recorded. Imaging Results Imaging Date Name Status LastModified by Organization Details LastModified Time 09/09/2023 US, echocardiogram completed [facility] [address], [address], 09/10/2023 10:35:54 09/16/2023 CT, abdomen + pelvis, w/o contrast completed [address], [address], 09/19/2023 12:24:01 09/09/2023 US, echocardiogram completed [facility] [address], [address], 09/23/2023 13:45:55 Procedure Notes None recorded. Medical Equipment None Reported. Allergies No known drug allergies Medications Name Sig Start Date Stop Date Status Note LastModified by Organization Details LastModified Time atorvastatin 10 mg tablet Take 1 tablet every day by oral route. 2024 active Not Available Not Available Not Avai lable lisinopril 20 mg tablet TAKE 1 TABLET BY MOUTH EVERY DAY 2024 active Not Available Not Available Not Avai lable Macrobid 100 mg capsule Take 1 capsule twice a day by oral route for 5 days. 2024 active Not Available Not Available Not Avai lable tamsulosin 0.4 mg capsule Take 1 capsule every day by oral route. active Not Available Not Available No t Available Adult Low Dose Aspirin 81 mg tablet,delay ed release Take 1 tablet every day by oral route. active Not Available Not Available No t Available Vitamin B12 100 mcg tablet Take 1 tablet every day by oral route. active Not Available Not Available No t Available Vitamin D3 50 mcg (2,000 unit) capsule Take 1 capsule every day by oral route. active Not Available Not Available No t Available [employer] Test Strip Use to test blood sugars twice daily 2024 active Not Available Not Available Not Avai lable [employer] Test Strip USE TO TEST BLOOD SUGARS TWICE DAILY 07/16 completed Not Available Not Available Not Available Vitals Date Recorded Body weight Body mass index (BMI) Body height Heart rate Oxygen saturation Oxygen saturation in Arterial blood by Pulse oximetry Systolic blood pressure Diastolic blood pressure Provider Name and Address Organization Details Last Updated DateTime 4 11692.6 4 g 33.6 kg/m2 157.48 cm 59 /min 98 % 98 % 126 mm[Hg] 64 mm[Hg] Juan Alberto Maynard MA [facility] 4 14:50:27 Date Recorded Body height Body mass index (BMI) Body weight Heart rate Oxygen saturation Oxygen saturation in Arterial blood by Pulse oximetry Systolic blood pressure Diastolic blood pressure Provider Name and Address Organization Details Last Updated DateTime 4 157.48 cm 34 kg/m2 21826.4 7 g 76 /min 97 % 97 % 142 mm[Hg] 68 mm[Hg] Estella Ventura MA [place] - [facility] 4 13:56:44 Date Recorded Body height Body mass index (BMI) Body weight Heart rate Oxygen saturation Oxygen saturation in Arterial blood by Pulse oximetry Systolic blood pressure Diastolic blood pressure Provider Name and Address Organization Details Last Updated DateTime 5 157.48 cm 30.9 kg/m2 94247.4 7 g 62 /min 96 % 96 % 110 mm[Hg] 72 mm[Hg] Chen Ramirez MA [facility] 5 11:38:25 Social History Question Answer Notes LastModified by Organizat ion Details LastModified Time Tobacco Smoking Status Never Smoker Juan Alberto Maynard MA null, [place] - [facility] 08/12/2023 14:45:57 Do You Have An Advance Directive? No Information n ot available 08/12/2023 Are You Blind Or Do You Have Difficulty Seeing? No Information n ot available 08/12/2023 What Is Your Level Of Caffeine Consumption? Heavy Information not available 08/12/2023 In The 14 Days Before Symptom Onset, Have You Had Close Contact With A Laboratory-confirm ed COVID-19 While That Case Was Ill? No Information n ot available 07/16/2024 In The 14 Days Before Symptom Onset, Have You Had Close Contact With A Person Who Is Under Investigation For COVID-19 While That Person Was Ill? No Information not available 07/16/2024 Have You Been To An Area Known To Be High Risk For COVID-19? No Information not available 07/16/2024 Are You Deaf Or Do You Have Serious Difficulty Hearing? Yes Information not available 08/12/2023 What Type Of Diet Are You Following? REGULAR Information n ot available 08/12/2023 Are There Any Guns Present In Your Home? No Information not available 08/12/2023 What Was The Date Of Your Most Recent Tobacco Screening? 07/16/2024 Information not available 07/16/2024 What Is Your Relationship Status? Information not available 08/12/2023 Do You Use Your Seat Belt Or Car Seat Routinely? Yes Information not available 08/12/2023 Do You Have Smoke And Carbon Monoxide Detectors In Your Home? Yes Information not available 08/12/2023 Do You Use Sunscreen Routinely? No Information not available 08/12/2023 Has Tobacco Cessation Counseling Been Provided? No Information not available 08/12/2023 Sex: Male Functional Status Question Answer Note LastModified by Organizat ion Details LastModified Time Do you use any illicit or recreational drugs? No Information not available 08/12/2023 Do you or have you ever used any other forms of tobacco or nicotine? No Information not available 08/12/2023 What is your level of alcohol consumption? None Information not available 08/12/2023 Are you currently employed? No retired Information not available 08/12/2023 Are you able to care for yourself? Yes Information n ot available 08/12/2023 What is your exercise level? None Information not available 08/12/2023 Mental Status Question Answer Note LastModified by Organization D etails LastModified Time Do you feel stressed (tense, restless, nervous, or anxious, or unable to sleep at night)? [id number] Information not available 08/12/2023 Family History Nothing Reported. Medical History Condition Response Coronary Artery Disease N Other N High Blood Pressure Y Atrial Fibrillation N Kidney or Bladder Problems Y Thyroid Problems N GI Problems N Depression N COPD N Blood Clots N Skin Problems N Anemia N Heart Attack ([place]) N Anxiety Disorder N Diabetes N Muscle, Joint, or Bone Problems N Seizures/Epilepsy N Acid Reflux (GERD) N Cancer N Stroke N Asthma N Allergies N High Cholesterol N Hepatitis N Liver Disease N Headaches N Heart Failure N Osteoporosis N Past Encounters Encounter ID Performer Location Encounter Start Date Encounter Closed Date Diagnosis/Indication Diagnosis SNOMED-CT Code Diagnosis ICD10 Code Diagnosis Note [id number] Ale Galarza MD [facility] [employer] [facility] [place] [address] [place] [address] 08/12/2023 14:22:26 08/12/2023 15:28:26 Umbilical hernia 676178007 K42.9 Systolic murmur 83904249 R01.1 Essential hypertension 27429638 I10 Serum muriel min B12 below reference range 447565102 R79.89 Prediabetes 028156209 R7 3.03 Benign pro static hyperplasia 184677810 N40.1 [id number] Ale Galarza MD [facility] [employer] [facility] [place] [address] [place] [address] 12/16/2023 13:31:57 12/16/2023 14:37:20 Body mass index 30+ - obesity 486222230 Z68.31 Essential hypertension 64130704 I10 Prediabetes 455736232 R7 3.03 Benign pro static hyperplasia 301566372 N40.1 [id number] Ale Galarza MD [facility] [employer] [facility] [place] [address] [place] [address] 07/16/2024 11:10:41 07/16/2024 12:13:28 Body mass index 30+ - obesity 184699716 Z68.31 Overweight 855185230 E66 .3 Essential hypertension 19967306 I10 Bilateral shoulder joint pain 8110579381 0914849 M25.511 M25.512 Hyperlipidemia 17660885 E78.5 Urinary tr act infectious disease 23704874 N39.0 Prediabetes 538743942 R7 3.03 Health Concerns Section Related Observation LastModified by Organization Detai ls LastModified Time None Recorded Concern Status LastModified by Organization Details LastModified Time None Recorded Advance Directives Directive N: Payers Encounter Date Sequence Insurance Name Policy Number Policy Hassan Covered Member ID Hassan Member ID Guarantor Name 08/12/2023 2 [place] [id number] R V Star[place] [id number] Rv [place] 12/16/2023 2 [place] [id number] R V Raysa [id number] Rv Raysa 07/16/2024 2 [place] [id number] R V [place] [id number] Rv [place] 07/16/2024 1 [place] V Raysa [id number] 9 Rv [place] Notes Date Note Type Note Provider Name and Address Organization Details Recorded Time 08/12/2023 text/html 77-year-old for follow-up of medical problems. Hypertension no chest pain no headache. Low B12 level he takes supplements right now BPH taking his Flomax and that seems to be doing fine has had a low vitamin D and he has been started on supplements. Patient unfortunately his within the past 6 months. They have been down in [place]. He is now back up here for about 6 months before returning to [place]. Has an umbilical hernia that is bothering him a little bit. Ale Galarza MD Attn: [address] [place], [address], [facility] 08/24/2023 16:50:23 12/16/2023 text/html had his ventral hernia repaired had did develop some postop urinary retention urology did see him everything is okay now Ale Galarza MD Attn: [address] [facility], [place], [address], [facility] [place] 01/05/2024 15:11:02 07/16/2024 text/html Some problems wi th some urinary frequency diabetes needs to be checked but no polyphagia or polydipsia bilateral shoulder pain that is getting worse no trauma she has been a chronic issue does try to follow a low-fat diet Ale Galarza MD Attn: [address] , [place], [address], [facility] - [facility] 07/18/2024 18:14:00
--- OUTSIDE RECORDS SUMMARY | 2024-08-17 16:00 | XMS_ITS | Clinical Summary ---
Author Organization [facility] Address [address] [place] [address] Care Team Providers Care Translator/Interpreter Name Role Phone Ramon Live MD Primary Care Provider [phone] Source Comments [facility],non-owned Affiliates and Associated Physician Practices is amultiple site organization consisting of ambulatory clinics and hospital sitesin [place], [place], [place] and [place]. This disclosure is being madepursuant to the Care Everywhere program and may not contain all information available regarding this patient. Last updated 17.[facility] Allergies No known active allergies Medications * Be aware that medications may not be up to date on this document. Alwaysverify current medications with the patient. FISH OIL PO Take by mouth 2 times daily. Active aspirin 81 MG tablet Take 81 mg by mouth daily. Active lancets Use 1 Each every 2 days. For Ultimate 2 machine. 3 boxes 3 0 Active cetirizine (ZYRTEC) 10 MG chew tabletIndications :Allergic rhinitis Take 1 Tab by mouth once daily. 30 Tab 0 3 Active blood glucose (ONETOUCH ULTRA TEST STRIPS) test strip Use 1 Strip once daily. 100 Strip 3 4 Active metFORMIN (GLUCOPHAGE) 500 MG tablet TAKE 1 TABLET TWICE A DAY WITH MORNING AND EVENING MEAL 180 Tab 1 5 Active vitamin D, ergocalciferol, (DRISDOL) 96107 UNITS capsule TAKE 1 CAPSULE EVERY 7 DAYS 13 Cap 0 5 Active cloNIDine (CATAPRES) 0.1 MG tabletIndications :Unspecified essential hypertension Take 1 Tab by mouth at bedtime 90 Tab 1 5 Active metoprolol tartrate (LOPRESSOR) 50 MG tablet TAKE 1 TABLET TWICE A DAY 180 Tab 0 5 Active lisinopril-hydroc hlorothiazide (PRINZIDE; ZESTORETIC) 10-12.5 MG tabletIndications :Unspecified essential hypertension Take 1 Tab by mouth once daily 90 Tab 1 5 Active Active Problems Problem Noted Date Diagnosed Date Essential hypertension 11/23/2014 Overview (01/06/2015): DM type 2 (diabetes mellitus, type 2) 09/02/2008 Overview (01/24/2010): New Dx 08/14 Personal history of prostate cancer 08/13/2008 Vitamin D deficiency 08/13/2008 Elevated cholesterol with high triglycerides OA (osteoarthritis) 08/05/2008 Resolved Problems Problem Noted Date Diagnosed Date Resolved Date Rectal bleeding 08/05/2008 08/11/2012 HBP (high blood pressure) 08/05/2008 Hematuria 08/05/2008 08/12/2013 Elevated PSA 08/05/2008 02/15/2009 Immunizations Immunization Administration Dates Next Due PNEUMOCOCCAL PPSV23 01/06/2005 Family History Relation Name Status Comments Father (Age 81) renal fail ure Mother (Age 73) cancer ?co vidhya Social History Tobacco Use Types Packs/Day Years Used Date Smoking Tobacco: Former Cigarettes 0 08/10/1984 - 08/10/1994 Alcohol Use Standard Drinks/Week Comments Yes 0 (1 standard drink = 0.6 oz pur e alcohol) occas Sex and Gender Information Value Date Recorded Sex Assigned at Not on file 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 Gender Identity Not on file Sexual Orientation Not on file Last Filed Vital Signs Vital Sign Reading Time Taken Comments Blood Pressure 160/84 01/07/2015 10:17 AM CDT Pulse 64 01/07/2015 10:17 AM CDT Temperature 36.7 C (98 F) 01/08/2012 10:32 AM CDT Respiratory Rate - - Oxygen Saturation - - Inhaled Oxygen Concentration - - Weight 105.2 kg (232 lb) 01/07/2015 10:17 AM CDT Height 165.1 cm (5' 5 ) 01/07/2015 10:17 AM CDT Body Mass Index 38.61 01/07/2015 10:17 AM CDT Plan of Treatment Health Maintenance Due Date Last Done Comments MEDICARE AWV 12 MONTHS 1945 DTAP/TDAP/TD VACCINES (1 - Tdap) 11/07/1963 DIABETES-STATIN 1984 ZOSTER VACCINE (1 of 2) 1994 PNEUMOCOCCAL VACCINE 50+ (2 of 2 - PCV) 01/06/2006 01/06/2005 DIABETES RETINOPATHY SCREENING 01/08/2012 DIABETES-FOOT EXAM WITH MONOFILAMENT 01/08/2012 DIABETES-HGB A1C 07/09/2015 01/07/2015, 08/2014, 01/06/2014, Additional history exists DIABETES-SERUM CREATININE 01/08/20162014, 08/10/2014, 08/12/2013, Additional history exists Respiratory Syncytial Virus (RSV) Vaccine Pt: or over 60 yrs (1 - 1-dose 75+ series) 11/07/2019 COVID-19 VACCINE ( season) 2023 DEPRESSION SCREENING 04/08/2024 DIABETES - URINE PROTEIN SCREENING 04/08/2024 01/07/2015, 08/10/2014, 08/07/2011, Additional history exists INFLUENZA VACCINE (Season Ended) 2024 HEPATITIS B VACCINE Aged Out No longe r eligible based on patient's age to complete this topic HIB VACCINE Aged Out No longer eligi ble based on patient's age to complete this topic HPV VACCINE Aged Out No longer eligi ble based on patient's age to complete this topic MENINGOCOCCAL (Group B) VACCINE SHARED DECISION-MAKING Aged Out No longer eligible based on patient's age to complete this topic MENINGOCOCCAL GROUPS A/C/Y/W VACCINE Aged Out No longer eligible based on patient's age to complete this topic Procedures Procedure Name Priority Date/Time Associated Diagnosis Comments MICROALB/CREAT RATIO URINE RANDOM PANEL Routine 01/07/2015 11:33 AM CDT Type 2 diabetes mellitus without complication COMPREHENSIVE METABOLIC PANEL Routine 01/07/2015 11:32 AM CDT Essential hypertension HEMOGLOBIN A1C Routine 01/07/2015 11:32 AM CDT Type 2 diabetes mellitus without complication from Last 3 Months or Most Recently Relevant to Health Maintenance Results * MICROALB/CREAT RATIO URINE RANDOM PANEL (01/07/2015 11:33 AM CDT) Creatinine Urine 84 mg/dL [facility] INSURANCE BILL Microalbumin Urine 2.1 mg/dL [facility] INSURANCE BILL Microalbumin/Crea tinine Ratio 25 <30 mg/g [facility] INSURANCE BILL Urine specimen (specimen) URINE SPECIMEN OBTAINED BY CLEAN CATCH PROCEDURE / Unknown 01/07/2015 11:33 AM CDT 01/07/2015 1:29 PM CDT Narrative Resulting Agency Comment [facility] [address] [phone] us Ramon Live MD LAB - URINE CHEMISTRY ORD ERABLES Final Result [facility] INSURANCE BILL [address] [place] [address] * (ABNORMAL) HEMOGLOBIN A1C (01/07/2015 11:32 AM CDT) Hemoglobin A1c 7.0(H) 4.2 - 6.3 % [facility] INSURANCE BILL Comment:AVERAGE GLUCOSE MG/D L BLOOD 154 mg/dL Whole blood specimen (specimen) BLOOD SPECIMEN WITH EDTA / Unknown 01/07/2015 11:32 AM CDT 01/07/2015 1:27 PM CDT Narrative Resulting Agency Comment [facility] [address] [phone] us Ramon Live MD LAB - CHEMISTRY ORDERABLE S Final Result [facility] INSURANCE BILL [address] [place] [address] * (ABNORMAL) COMPREHENSIVE METABOLIC PANEL (01/07/2015 11:32 AM CDT) Glucose 133(H) 74 - 106 mg/dL [facility] INSURANCE BILL BUN 12 7 - 21 mg/dL [facility] INSURANCE BILL Creatinine 0.81 0.50 - 1.30 mg/dL [facility] INSURANCE BILL eGFR by MDRD >60 mL/min/1.7 3m2 [facility] INSURANCE BILL eGFR by MDRD >60 mL/min/1.7 3m2 [facility] INSURANCE BILL Sodium 139 136 - 145 mmol/L [facility] INSURANCE BILL Potassium 4.1 3.5 - 5.1 mmol/L [facility] INSURANCE BILL Chloride 102 98 - 107 mmol/L [facility] INSURANCE BILL CO2 28 22 - 31 mmol/L [facility] INSURANCE BILL Calcium 9.8 8.5 - 10.1 mg/dL [facility] INSURANCE BILL Protein Total 7.9 6.4 - 8.2 gm/dL [facility] INSURANCE BILL Albumin 4.2 3.4 - 5.0 gm/dL [facility] INSURANCE BILL Bilirubin Total 0.6 0.2 - 1.0 mg/dL [facility] INSURANCE BILL Alkaline Phosphatase 48 38 - 126 U/L [facility] INSURANCE BILL AST 37 5 - 40 U/L [facility] INSURANCE BILL ALT 58 12 - 78 U/L [facility] INSURANCE BILL Blood specimen (specimen) BLOOD SPECIMEN / Unknown 01/07/2015 11:32 AM CDT 01/07/2015 1:27 PM CDT Narrative Resulting Agency Comment [facility] [address] [place] [phone] [place] Ramon Live MD LAB - CHEMISTRY ORDERABLE S Final Result [facility] INSURANCE BILL [address] [place] [address] from Last 3 Months or Most Recently Relevant to Health Maintenance Insurance MEDICARE ANTHEM SELF PAY NO INSURANCE Member Subscriber Plan / Payer (Ef fective for All Dates) Name:Asha Tabares Member ID:Not on file Relation to Subscriber:Not on file Name:Asha TABARES Subscriber ID:Not on file (Home) Address: [address] [place] [id number] Payer ID:Not on file Group ID:Not on file Type:Self Pay Address: [place], [place] Care Teams Translator/Interpreter Relationship Specialty Start Date End Date Ramon Live MD PCP - General 08/05/08
--- OUTSIDE RECORDS SUMMARY | 2024-08-17 16:01 | XMS_ITS | Encounter Summary ---
Author Organization [facility] Address [address] [place] [address] Care Team Providers Care Preassembler Printed Circuit Board Name Role Phone Ramon Live MD Primary Care Provider [phone] Encounter Details Date Type Department Care Team (Late st Contact Info) Description 08/14/2012 [facility]NAL [facility] DEPT Ramon Live MD [address] [place] [address] Social History Tobacco Use Types Packs/Day Years Used Date Smoking Tobacco: Former Cigarettes Alcohol Use Standard Drinks/Week Comments Yes 0 (1 standard drink = 0.6 oz pur e alcohol) Sex and Gender Information Value Date Recorded Sex Assigned at Not on file 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
--- OUTSIDE RECORDS SUMMARY | 2024-08-17 16:01 | XMS_ITS | Continuity of Care Document ---
Author Organization [facility] Address [id number] [place] [address] [address] [place] [address] Phone Care Team Providers Care Relay Repairer Name Role Phone Doisy, Edward Unavailable Unavailable Advance Directives Directive Yes / No Effective Date File Name No Information Encounters Encounter Description Practice Location Reason(s) For Visit Diagnoses Date Provider Providers Copied on Encounter [facility], [id number] [place] [address] [address], [place], [place], [id number], [place] tel:[phone] [facility] No Information 4 Doisy Edward. [address] [facility] , [address], [place], [place], [facility], [place]. tel:[phone] Referring Provider: Xavier Vyas, [address] [facility], [place], [place], [facility]. tel:[phone] Family History Family Member Type Diagnosis Age At Onset No Information Payers Payer name Insurance type Covered libertarian ID Authoriza tion(s) No Information Social History Type Description Quantity Date Captured Comments Sex Male Smoking Status No Information Chief Complaint And Reason For Visit No Information Reason For Referral Reason For Referral No Information History Of Present Illness Encounter Date Complaint History Of Prese nt Illness No Information Functional Status Date Functional Assessmen t No Information Instructions Date Instruction Additional Infor mation No Information Assessments Type Assessment Date No Information Patient Care Teams Name Effective Dates (start - stop) Status Members No Information
--- OUTSIDE RECORDS SUMMARY | 2024-08-17 16:01 | XMS_ITS | Data Portability ---
Author Organization [facility] [employer], Main Office Address [address] [place] [address] Assessment Encounter Date Assessment Date Assessment LastModified by Organization Details LastModified Time 08/02/2022 08/02/2022 Patient's shoulder pain right. Has difficulty raising the raising his arm above the horizontal is weak in abduction external rotation has pain with any manipulation got good neck motion without radicular symptoms not only is the weak in active motion but also passive motion I can get him than 10 120 . His x-rays suggest arthritis of the shoulder. My impression patient has rotator cuff tendinitis and degenerative changes of the shoulder I injected with 20 mg Kenalog 4 cc 1% lidocaine. For prescription drug management will try prednisone taper to see if that. I will see him back in a month and see how he is progressing. If he does not get better may have to consider an MRI scan. [email or web address] Not available 08/02/2022 13:10:26 08/27/2022 08/27/2022 X-ray ortho [email or web address] Not available 23:00:35 08/30/2022 08/30/2022 Patient returns shoulder pain left. The right-sided shoulder pain has done well with conservative treatment he is tender over the left shoulder has pain to palpation manipulation neurologically he is grossly intact. He does have some tearing of the rotator cuff and is rupture of the biceps on the left side. He also has some degenerative changes some loss of motion in the left shoulder is elevation 140 external rotation 30 I will try an injection left shoulder. For prescription drug management will try prednisone taper for pain and inflammation. I will see him back in a month for follow-up and reassess at that point discussed. [email or web address] Not available 08/30/2022 11:35:31 10/04/2022 10/04/2022 Patient returns shoulder pain bilaterally. He has rotator cuff pathology bilaterally right and left. He has responded well to injections and therapy and Medicine. He continues to hurt but at this point he thinks he would like to leave it alone. If he gets worse or changes I told him we can reinject him at any point. He should continue with the exercises that he does anti-inflammatory medication as needed follow up on an as-needed basis. Not available 10/04/2022 12:12:25 12/03/2022 12/03/2022 Blood work been ordered diagnosis in assessment and plan have been discussed surgical consultation on the hernia follow-up with me when he gets back from [place] [email or web address] Not available 12/03/2022 12:17:51 Plan of Treatment Reminders Order Date Submit Date Provider Last Modified By Organization Details Last Modified Time Details Appointments None recorded. Lab culture, urine + sensitivity 2022 023 [facility] (Lab), [address] [place], [address], 3 16:36:34 urinalysis, microscopic 2022 023 [facility] (Lab), [address] [place], [address], 3 16:36:40 CMP, serum or plasma [address] [facility] (Lab), [address] [place], [address], 3 13:51:23 CBC w/ auto diff [address] [facility] (Lab), [address] [place], [address], 3 13:33:21 lipid panel, serum [address] [facility] (Lab), [address] [place], [address], 3 13:51:26 HbA1c (hemoglobin A1c), blood 2022 023 [facility] (Lab), [address], [place], [address], 3 16:36:45 Referral None recorded. Procedures injection/a spiration joint/bursa (PROC) - in office procedure, administere d by provider 2022 023 [email or web address] In-Office Order, Internal Use Only DO Not Attach Compendium DO Not Attach Compendium, Do Not Delete/merge, [id number] 3 11:30:18 injection/a spiration joint/bursa (PROC) - in office procedure, administere d by provider 2022 023 [email or web address] In-Office Order, Internal Use Only DO Not Attach Compendium DO Not Attach Compendium, Do Not Delete/merge, [id number] 3 13:09:36 Surgeries None recorded. Imaging None recorded. Medication Orders Kenalog 10 mg/mL suspension for injection 2022 023 [id number], [address] [facility], [place], [place], [id number], 3 10:43:38 ropivacaine (PF) 5 mg/mL (0.5 %) injection solution 2022 023 [facility] [id number], [address] [facility], [place], [place], [id number], 3 10:43:48 prednisone 10 mg tablets in a dose pack 2022 023 [id number], [address] [facility] [facility], [place], [place], [id number], 3 10:43:53 prednisone 10 mg tablets in a dose pack [email or web address] [facility] #50353, [address], [place], [place], [id number], 10:43:53 Kenalog 10 mg/mL suspension for injection 2022 023 [facility] [address] [facility][id number], [address], [place], [place], [id number], 10:43:38 ropivacaine (PF) 5 mg/mL (0.5 %) injection solution 2022 023 [facility] [address] [facility] #[id number], [address], [place], [place], [id number], 10:43:48 Patient TargetsNo targets recorded. Patient InstructionsNo instructions recorded. Reason for Referral None Reported. Results Created Date Observation Date Name Description Value Unit Range Abnormal Flag Note LastModifiedBy Organization Detail LastModifiedTime 07/31/1907/30/2022 URINE MICRO SCOPI C EXAM/ IRIS white blood cells 0-8 /i??h pfi?? 0-8 Not Available [facility] (Lab) [address] [place], [address], 07/30/2022 13:19:14 07/31/1907/30/2022 URINE MICRO SCOPI C EXAM/ IRIS red blood cells 0-4 /i??h pfi?? 0-4 Not Available [facility] (Lab) [address] [place], [address], 07/30/2022 13:19:14 07/31/1907/30/2022 URINE MICRO SCOPI C EXAM/ IRIS bacteria NONE Not Available [facility] (Lab) [address] [place], [address], 07/30/2022 13:19:14 07/31/1907/30/2022 URINE MICRO SCOPI C EXAM/ IRIS mucous OCCASI ONAL /i??l pfi?? abnormal Not Available [facility] (Lab) [address] [place], [address], 07/30/2022 13:19:14 07/31/19 23 07/30/2022 URINE MICRO SCOPI C EXAM/ IRIS squamous epithelial OCCASI ONAL /i??l pfi?? abnormal Not Available [facility] (Lab) [address] [place], [address], 07/30/2022 13:19:14 07/31/19 23 07/30/2022 CBC/C OMPLE TE BLD COUNT W/DIF F white blood cells 7.6 x10'3 /uL 4.2-10 .8 Not Available [facility] (Lab) [address] [place], [address], 07/30/2022 13:37:15 07/31/19 23 07/30/2022 CBC/C OMPLE TE BLD COUNT W/DIF F red blood cells 4.46 x10'6 /uL 4.10-5 .80 Not Available [facility] (Lab) [address] [place], [address], 07/30/2022 13:37:15 07/31/19 23 07/30/2022 CBC/C OMPLE TE BLD COUNT W/DIF F hemoglobin 13.6 g/dL 13.2-1 7.0 Not Available [facility] (Lab) [address] [place], [address], 07/30/2022 13:37:15 07/31/19 23 07/30/2022 CBC/C OMPLE TE BLD COUNT W/DIF F hematocrit 42.9 % 39.3-5 0.0 Not Available [facility] (Lab) [address] [place], [address], 07/30/2022 13:37:15 0407/30/2022 CBC/C OMPLE TE BLD COUNT W/DIF F mean red cell volume 96.2 fL 80.0-9 7.0 Not Available [facility] (Lab) [address] [facility] [place], [address], 07/30/2022 13:37:15 07/31/19 23 07/30/2022 CBC/C OMPLE TE BLD COUNT W/DIF F mean red cell hemoglobin 30.5 pg 27.0-3 3.0 Not Available [facility] (Lab) [address] [place], [address], 07/30/2022 13:37:15 07/31/1907/30/2022 CBC/C OMPLE TE BLD COUNT W/DIF F mean RBC HGB concentratio n 31.7 g/dL 31.0-3 6.0 Not Available [facility] (Lab) [address] [place], [address], 07/30/2022 13:37:15 07/31/19 23 07/30/2022 CBC/C OMPLE TE BLD COUNT W/DIF F red cell distribution width 13.9 % 11.8-1 5.5 Not Available [facility] (Lab) [address] [place], [address], 07/30/2022 13:37:15 07/31/19 23 07/30/2022 CBC/C OMPLE TE BLD COUNT W/DIF F platelets 260 x10'3 /uL 150-40 0 Not Available [facility] (Lab) [address] [place], [address], 07/30/2022 13:37:15 07/31/1907/30/2022 CBC/C OMPLE TE BLD COUNT W/DIF F mean platelet volume 9.7 fL 9.0-12 .4 Not Available [facility] (Lab) [address] [place], [address], 07/30/2022 13:37:15 07/31/19 23 07/30/2022 CBC/C OMPLE TE BLD COUNT W/DIF F neutrophils 54.0 % 39.0-7 2.0 Not Available [facility] (Lab) [address] [place], [address], 07/30/2022 13:37:15 07/31/1907/30/2022 CBC/C OMPLE TE BLD COUNT W/DIF F lymphocytes 33.5 % 16.0-4 7.0 Not Available [facility] (Lab) [address] [place], [address], 07/30/2022 13:37:15 07/31/1907/30/2022 CBC/C OMPLE TE BLD COUNT W/DIF F monocytes 8.3 % 5.0-12 .0 Not Available [facility] (Lab) [address] [place], [address], 07/30/2022 13:37:15 07/31/1907/30/2022 CBC/C OMPLE TE BLD COUNT W/DIF F eosinophils 3.4 % 1.0-7. 0 Not Available [facility] (Lab) [address] [place], [address], 07/30/2022 13:37:15 07/31/1907/30/2022 CBC/C OMPLE TE BLD COUNT W/DIF F basophils 0.5 % 0.0-2. 0 Not Available [facility] (Lab) [address] [place], [address], 07/30/2022 13:37:15 07/31/1907/30/2022 CBC/C OMPLE TE BLD COUNT W/DIF F immature granulocytes 0.3 % 0.00-0 .50 Not Available [facility] (Lab) [address] [place], [address], 07/30/2022 13:37:15 07/31/19 23 07/30/2022 CBC/C OMPLE TE BLD COUNT W/DIF F neutrophils, absolute count 4.12 x10'3 /uL 1.5-8. 0 Not Available [facility] (Lab) [address] [place], [address], 07/30/2022 13:37:15 07/31/19 23 07/30/2022 CBC/C OMPLE TE BLD COUNT W/DIF F lymphocytes, absolute count 2.55 x10'3 /uL 1.07-3 .43 Not Available [facility] (Lab) [address] [place], [address], 07/30/2022 13:37:15 07/31/1907/30/2022 CBC/C OMPLE TE BLD COUNT W/DIF F monocytes, absolute count 0.63 x10'3 /uL 0.29-0 .99 Not Available [facility] (Lab) [address] [place], [address], 07/30/2022 13:37:15 07/31/1907/30/2022 CBC/C OMPLE TE BLD COUNT W/DIF F eosinophils, absolute count 0.26 x10'3 /uL 0.02-0 .53 Not Available [facility] (Lab) [address] [place], [address], 07/30/2022 13:37:15 07/31/1907/30/2022 CBC/C OMPLE TE BLD COUNT W/DIF F basophils, absolute count 0.04 x10'3 /uL 0.01-0 .08 Not Available [facility] (Lab) [address] [place], [address], 07/30/2022 13:37:15 07/31/19 23 07/30/2022 CBC/C OMPLE TE BLD COUNT W/DIF F immature granulocytes ,absolute 0.02 x10'3 /uL 0.00-0 .05 Not Available [facility] (Lab) [address] [place], [address], 07/30/2022 13:37:15 07/31/19 23 07/30/2022 CBC/C OMPLE TE BLD COUNT W/DIF F nucleated red blood cells 0.0 % -0 Not Available [facility] (Lab) [address] [place], [address], 07/30/2022 13:37:15 07/31/19 23 07/30/2022 CBC/C OMPLE TE BLD COUNT W/DIF F NRBC# 0.00 x10'3 /uL Not Available [facility] (Lab) [address] [place], [address], 07/30/2022 13:37:15 07/31/1907/30/2022 HEMOG LOBIN A1C HA1C 6.0 % 4.0-6. 0 Diabe mir Scree geovanny Crite chaim: <5.7% Consi stent with absen ce of diabe mir 5.7-6 .4% Consi stent with incre ased risk for diabe mir (pred iabet es) >OR=6 .5% Consi stent with diabe mir REFER ENCE: Diabe mir Care 2016, 39(Guerrero ppl.1 ):s13 -s22 Not Available [facility] (Lab) [address] [place], [address], 07/30/2022 15:17:00 07/31/1907/30/2022 COMPR EHENS LEV METAB OLIC PANEL sodium 137 mmol/ L 137-14 5 Not Available [facility] (Lab) [address] [place], [address], 07/30/2022 15:58:11 07/31/1907/30/2022 COMPR EHENS LEV METAB OLIC PANEL potassium 4.1 mmol/ L 3.5-5. 1 Not Available [facility] (Lab) [address] [place], [address], 07/30/2022 15:58:11 07/31/19 23 07/30/2022 COMPR EHENS LEV METAB OLIC PANEL chloride 100 mmol/ L 98-107 Not Available [facility] (Lab) [address] [place], [address], 07/30/2022 15:58:11 07/31/19 23 07/30/2022 COMPR EHENS LEV METAB OLIC PANEL carbon dioxide 27 mmol/ L 22-30 Not Available [facility] (Lab) [address] [place], [address], 07/30/2022 15:58:11 07/31/19 23 07/30/2022 COMPR EHENS LEV METAB OLIC PANEL anion gap 14.1 mmol/ L 14-22 Not Available [facility] (Lab) [address] [place], [address], 07/30/2022 15:58:11 07/31/19 23 07/30/2022 COMPR EHENS LEV METAB OLIC PANEL glucose 121 mg/dL 70-99 high Not Available [facility] (Lab) [address] [place], [address], 07/30/2022 15:58:11 07/31/19 23 07/30/2022 COMPR EHENS LEV METAB OLIC PANEL BUN 15 mg/dL 8-19 Not Available [facility] (Lab) [address] [place], [address], 07/30/2022 15:58:11 07/31/19 23 07/30/2022 COMPR EHENS LEV METAB OLIC PANEL creatinine 0.59 mg/dL 0.66-1 .25 low Not Available [facility] (Lab) [address] [place], [address], 07/30/2022 15:58:11 07/31/19 23 07/30/2022 COMPR EHENS LEV METAB OLIC PANEL GFR >60 Refer ence Range : Lee ge GFR Healt hy Adult : >60 mL/mi n/1.7 3 m2 Chron ic Kidne y Disea se: 15-60 mL/mi n/1.7 3 m2 Kidne y Failu re: <15/m L/min /1.73 m2 www.n iddk. [facility].g ov The MDRD study equat ion has not been valid ated in child carlene <18 years of age; pregn ant women ; the elder ly >85 years of age; or in some racia l or ethni c subgr oups, such as Hispa nics. Outsi de the valid ated carol eters , estim ated GFR is less accur ate, requi ring clini janice judgm ent on a case- by-ca se basis . Clini janice inter preta tion for other races and ages must be made by the clini haylee. The MDRD study equat ion has not been valid ated for the evalu ation of serum creat inine relat ed to nutri gary l statu s or medic ation usage . For perso ns <18 years of age, a pedia tric GFR calcu lator is avail able on the [facility] websi te: https :[email or web address]-ann [email or web address] [email or web address]/[email or web address] campbellal s/rano qi/gf r_cal culat or Not Available [facility] (Lab) [address] [place], [address], 07/30/2022 15:58:11 07/31/1907/30/2022 COMPR EHENS LEV METAB OLIC PANEL alkaline phosphatase 42 U/L 38-126 Not Available [facility] (Lab) [address] [place], [address], 07/30/2022 15:58:11 07/31/1907/30/2022 COMPR EHENS LEV METAB OLIC PANEL alanine aminotransfe rase 24 U/L 0-50 Not Available [facility] (Lab) [address] [place], [address], 07/30/2022 15:58:11 07/31/19 23 07/30/2022 COMPR EHENS LEV METAB OLIC PANEL aspartate aminotransfe rase 28 U/L 15-46 Not Available [facility] (Lab) [address] [place], [address], 07/30/2022 15:58:11 07/31/19 23 07/30/2022 COMPR EHENS LEV METAB OLIC PANEL bilirubin, total 0.80 mg/dL 0.20-1 .30 Not Available [facility] (Lab) [address] [place], [address], 07/30/2022 15:58:11 07/31/19 23 07/30/2022 COMPR EHENS LEV METAB OLIC PANEL calcium 9.6 mg/dL 8.4-10 .2 Not Available [facility] (Lab) [address] [place], [address], 07/30/2022 15:58:11 07/31/19 23 07/30/2022 COMPR EHENS LEV METAB OLIC PANEL total protein 7.5 g/dL 6.3-8. 2 Not Available [facility] (Lab) [address] [place], [address], 07/30/2022 15:58:11 07/31/19 23 07/30/2022 COMPR EHENS ELV METAB OLIC PANEL albumin 4.5 g/dL 3.0-4. 4 high Not Available [facility] (Lab) [address] [place], [address], 07/30/2022 15:58:11 07/31/19 23 07/30/2022 COMPR EHENS LEV METAB OLIC PANEL globulin 3.0 g/dL 2.6-4. 2 Not Available [facility] (Lab) [address] [place], [address], 07/30/2022 15:58:11 07/31/19 23 07/30/2022 COMPR EHENS LEV METAB OLIC PANEL A/G ratio 1.5 ratio 1.0-2. 0 Not Available [facility] (Lab) [address] [place], [address], 07/30/2022 15:58:11 12/04/19 23 12/03/2022 CBC/C OMPLE TE BLD COUNT W/DIF F white blood cells 7.6 x10'3 /uL 4.2-10 .8 Not Available [facility] (Lab) [address] [place], [address], 12/03/2022 13:33:21 12/04/19 23 12/03/2022 CBC/C OMPLE TE BLD COUNT W/DIF F red blood cells 4.48 x10'6 /uL 4.10-5 .80 Not Available [facility] (Lab) [address] [place], [address], 12/03/2022 13:33:21 12/04/19 23 12/03/2022 CBC/C OMPLE TE BLD COUNT W/DIF F hemoglobin 13.5 g/dL 13.2-1 7.0 Not Available [facility] (Lab) [address] [place], [address], 12/03/2022 13:33:21 12/04/19 23 12/03/2022 CBC/C OMPLE TE BLD COUNT W/DIF F hematocrit 42.0 % 39.3-5 0.0 Not Available [facility] (Lab) [address] [place], [address], 12/03/2022 13:33:21 12/04/19 23 12/03/2022 CBC/C OMPLE TE BLD COUNT W/DIF F mean red cell volume 93.8 fL 80.0-9 7.0 Not Available [facility] (Lab) [address] [place], [address], 12/03/2022 13:33:21 12/04/19 23 12/03/2022 CBC/C OMPLE TE BLD COUNT W/DIF F mean red cell hemoglobin 30.1 pg 27.0-3 3.0 Not Available [facility] (Lab) [address] [place], [address], 12/03/2022 13:33:21 12/04/19 23 12/03/2022 CBC/C OMPLE TE BLD COUNT W/DIF F mean RBC HGB concentratio n 32.1 g/dL 31.0-3 6.0 Not Available [facility] (Lab) [address] [place], [address], 12/03/2022 13:33:21 12/04/19 23 12/03/2022 CBC/C OMPLE TE BLD COUNT W/DIF F red cell distribution width 13.5 % 11.8-1 5.5 Not Available [facility] (Lab) [address] [place], [address], 12/03/2022 13:33:21 12/04/19 23 12/03/2022 CBC/C OMPLE TE BLD COUNT W/DIF F platelets 260 x10'3 /uL 150-40 0 Not Available [facility] (Lab) [address] [place], [address], 12/03/2022 13:33:21 12/04/19 23 12/03/2022 CBC/C OMPLE TE BLD COUNT W/DIF F mean platelet volume 10.4 fL 9.0-12 .4 Not Available [facility] (Lab) [address] [place], [address], 12/03/2022 13:33:21 12/04/19 23 12/03/2022 CBC/C OMPLE TE BLD COUNT W/DIF F neutrophils 56.8 % 39.0-7 2.0 Not Available [facility] (Lab) [address] [place], [address], 12/03/2022 13:33:21 12/04/19 23 12/03/2022 CBC/C OMPLE TE BLD COUNT W/DIF F lymphocytes 31.2 % 16.0-4 7.0 Not Available [facility] (Lab) [address] [place], [address], 12/03/2022 13:33:21 12/04/19 23 12/03/2022 CBC/C OMPLE TE BLD COUNT W/DIF F monocytes 7.5 % 5.0-12 .0 Not Available [facility] (Lab) [address] [place], [address], 12/03/2022 13:33:21 12/04/19 23 12/03/2022 CBC/C OMPLE TE BLD COUNT W/DIF F eosinophils 3.8 % 1.0-7. 0 Not Available [facility] (Lab) [address] [place], [address], 12/03/2022 13:33:21 12/04/19 23 12/03/2022 CBC/C OMPLE TE BLD COUNT W/DIF F basophils 0.4 % 0.0-2. 0 Not Available [facility] (Lab) [address] [place], [address], 12/03/2022 13:33:21 12/04/19 23 12/03/2022 CBC/C OMPLE TE BLD COUNT W/DIF F immature granulocytes 0.3 % 0.00-0 .50 Not Available [facility] (Lab) [address] [place], [address], 12/03/2022 13:33:21 12/04/19 23 12/03/2022 CBC/C OMPLE TE BLD COUNT W/DIF F neutrophils, absolute count 4.32 x10'3 /uL 1.5-8. 0 Not Available [facility] (Lab) [address] [place], [address], 12/03/2022 13:33:21 12/04/19 23 12/03/2022 CBC/C OMPLE TE BLD COUNT W/DIF F lymphocytes, absolute count 2.37 x10'3 /uL 1.07-3 .43 Not Available [facility] (Lab) [address] [place], [address], 12/03/2022 13:33:21 12/04/19 23 12/03/2022 CBC/C OMPLE TE BLD COUNT W/DIF F monocytes, absolute count 0.57 x10'3 /uL 0.29-0 .99 Not Available [facility] (Lab) [address] [place], [address], 12/03/2022 13:33:21 12/04/19 23 12/03/2022 CBC/C OMPLE TE BLD COUNT W/DIF F eosinophils, absolute count 0.29 x10'3 /uL 0.02-0 .53 Not Available [facility] (Lab) [address] [place], [address], 12/03/2022 13:33:21 12/04/19 23 12/03/2022 CBC/C OMPLE TE BLD COUNT W/DIF F basophils, absolute count 0.03 x10'3 /uL 0.01-0 .08 Not Available [facility] (Lab) [address] [place], [address], 12/03/2022 13:33:21 12/04/19 23 12/03/2022 CBC/C OMPLE TE BLD COUNT W/DIF F immature granulocytes ,absolute 0.02 x10'3 /uL 0.00-0 .05 Not Available [facility] (Lab) [address] [place], [address], 12/03/2022 13:33:21 12/04/19 23 12/03/2022 CBC/C OMPLE TE BLD COUNT W/DIF F nucleated red blood cells 0.0 % -0 Not Available [facility] (Lab) [address] [place], [address], 12/03/2022 13:33:21 12/04/19 23 12/03/2022 CBC/C OMPLE TE BLD COUNT W/DIF F NRBC# 0.00 x10'3 /uL Not Available [facility] (Lab) [address] [place], [address], 12/03/2022 13:33:21 12/04/19 23 12/03/2022 COMPR EHENS LEV METAB OLIC PANEL sodium 137 mmol/ L 137-14 5 Not Available [facility] (Lab) [address] [place], [address], 12/03/2022 13:51:23 12/04/19 23 12/03/2022 COMPR EHENS LEV METAB OLIC PANEL potassium 4.0 mmol/ L 3.5-5. 1 Not Available [facility] (Lab) [address] [place], [address], 12/03/2022 13:51:23 12/04/19 23 12/03/2022 COMPR EHENS LEV METAB OLIC PANEL chloride 102 mmol/ L 98-107 Not Available [facility] (Lab) [address] [place], [address], 12/03/2022 13:51:23 12/04/19 23 12/03/2022 COMPR EHENS LEV METAB OLIC PANEL carbon dioxide 27 mmol/ L 22-30 Not Available [facility] (Lab) [address] [place], [address], 12/03/2022 13:51:23 12/04/19 23 12/03/2022 COMPR EHENS LEV METAB OLIC PANEL anion gap 12.0 mmol/ L 14-22 low Not Available [facility] (Lab) [address] [place], [address], 12/03/2022 13:51:23 12/04/19 23 12/03/2022 COMPR EHENS LEV METAB OLIC PANEL glucose 124 mg/dL 70-99 high Not Available [facility] (Lab) [address] [place], [address], 12/03/2022 13:51:23 12/04/19 23 12/03/2022 COMPR EHENS LEV METAB OLIC PANEL BUN 15 mg/dL 8-19 Not Available [facility] (Lab) [address] [place], [address], 12/03/2022 13:51:23 12/04/19 23 12/03/2022 COMPR EHENS LEV METAB OLIC PANEL creatinine 0.64 mg/dL 0.66-1 .25 low Not Available [facility] (Lab) [address] [place], [address], 12/03/2022 13:51:23 12/04/19 23 12/03/2022 COMPR EHENS LEV METAB OLIC PANEL GFR >60 Refer ence Range : Lee ge GFR Healt hy Adult : >60 mL/mi n/1.7 3 m2 Chron ic Kidne y Disea se: 15-60 mL/mi n/1.7 3 m2 Kidne y Failu re: <15/m L/min /1.73 m2 www.n iddk. nih.g ov The MDRD study equat ion has not been valid ated in child carlene <18 years of age; pregn ant women ; the elder ly >85 years of age; or in some racia l or ethni c subgr oups, such as Hispa nics. Outsi de the valid ated carol eters , estim ated GFR is less accur ate, requi ring clini janice judgm ent on a case- by-ca se basis . Clini janice inter preta tion for other races and ages must be made by the clini haylee. The MDRD study equat ion has not been valid ated for the evalu ation of serum creat inine relat ed to nutri gary l statu s or medic ation usage . For perso ns <18 years of age, a pedia tric GFR calcu lattayla is avail able on the [facility] websi te: [email or web address] :[email or web address] [email or web address] ofess ional [email or web address] qi/gf r_cal culat or Not Available [facility] (Lab) [address] [place], [address], 12/03/2022 13:51:23 12/04/19 23 12/03/2022 COMPR EHENS LEV METAB OLIC PANEL alkaline phosphatase 46 U/L 38-126 Not Available [facility] (Lab) [address] [place], [address], 12/03/2022 13:51:23 12/04/19 23 12/03/2022 COMPR EHENS LEV METAB OLIC PANEL alanine aminotransfe rase 22 U/L 0-50 Not Available [facility] (Lab) [address] [place], [address], 12/03/2022 13:51:23 12/04/19 23 12/03/2022 COMPR EHENS LEV METAB OLIC PANEL aspartate aminotransfe rase 21 U/L 15-46 Not Available [facility] (Lab) [address] [place], [address], 12/03/2022 13:51:23 12/04/19 23 12/03/2022 COMPR EHENS LEV METAB OLIC PANEL bilirubin, total 0.80 mg/dL 0.20-1 .30 Not Available [facility] (Lab) [address] [place], [address], 12/03/2022 13:51:23 12/04/19 23 12/03/2022 COMPR EHENS LEV METAB OLIC PANEL calcium 9.6 mg/dL 8.4-10 .2 Not Available [facility] [facility] [address] [place], [address], 12/03/2022 13:51:23 12/04/19 23 12/03/2022 COMPR EHENS LEV METAB OLIC PANEL total protein 7.0 g/dL 6.3-8. 2 Not Available [facility] (Lab) [address] [place], [address], 12/03/2022 13:51:23 12/04/19 23 12/03/2022 COMPR EHENS LEV METAB OLIC PANEL albumin 4.4 g/dL 3.0-4. 4 Not Available [facility] (Lab) [address] [place], [address], 12/03/2022 13:51:23 12/04/19 23 12/03/2022 COMPR EHENS LEV METAB OLIC PANEL globulin 2.6 g/dL 2.6-4. 2 Not Available [facility] (Lab) [address] [place], [address], 12/03/2022 13:51:23 12/04/19 23 12/03/2022 COMPR EHENS LEV METAB OLIC PANEL A/G ratio 1.7 ratio 1.0-2. 0 Not Available [facility] (Lab) [address] [place], [address], 12/03/2022 13:51:23 12/04/19 23 12/03/2022 LIPID PANEL cholesterol 122 mg/dL 140-19 9 low NIH AJ NSUS RECOM MENDA TION FOR REAL STERO L: ADULT CHILD LOW RISK: <200 <170 BORDE RLINE : <200- 239 ----- HIGH RISK: >240 >200 Not Available [facility] (Lab) [address] [place], [address], 12/03/2022 13:51:26 12/04/19 23 12/03/2022 LIPID PANEL triglyceride s 129 mg/dL 0-150 NIH AJ NSUS REPOR T RECOM MENDA TION FOR TRIGL YCERI ANA LAURA: ADULT CHILD LOW RISK: <150 ----- BODER LINE: 150-1 99 ----- HIGH RISK: >200 ----- Not Available [facility] (Lab) [address] [place], [address], 12/03/2022 13:51:26 12/04/19 23 12/03/2022 LIPID PANEL HDL cholesterol 45 mg/dL 40- Not Available [facility] (Lab) [address] [place], [address], 12/03/2022 13:51:26 12/04/19 23 12/03/2022 LIPID PANEL LDL cholesterol, calculated 51 mg/dL 0-130 NIH AJ NSUS REPOR T RECOM MENDA TIONS FOR LDL: ADULT CHILD LOW RISK <130 <110 (OPTI MAL LDL) <100 ----- BORDE RLINE : 130-1 59 ----- HIGH RISK: >160 >130 A TRIGL YCERI DE RESUL T >400 INVAL IDATE S THE CALCU LATIO N FOR LDL FRACT IONAT ION - THE LDL RESUL T WILL NOT BE REPOR AMOL. Not Available [facility] (Lab) [address] [place], [address], 12/03/2022 13:51:26 12/04/19 23 12/03/2022 URINE MICRO SCOPI C EXAM/ IRIS white blood cells 0-8 /i??h pfi?? 0-8 Not Available [facility] (Lab) [address] [place], [address], 12/03/2022 14:02:06 12/04/19 23 12/03/2022 URINE MICRO SCOPI C EXAM/ IRIS red blood cells 5-10 /i??h pfi?? 0-4 abnormal Not Available [facility] (Lab) [address] [place], [address], 12/03/2022 14:02:06 12/04/19 23 12/03/2022 URINE MICRO SCOPI C EXAM/ IRIS bacteria NONE Not Available [facility] (Lab) [address] [place], [address], 12/03/2022 14:02:06 12/04/19 23 12/03/2022 URINE MICRO SCOPI C EXAM/ IRIS mucous OCCASI ONAL /i??l pfi?? abnormal Not Available [facility] (Lab) [address] [place], [address], 12/03/2022 14:02:06 12/04/19 23 12/03/2022 URINE MICRO SCOPI C EXAM/ IRIS squamous epithelial OCCASI ONAL /i??l pfi?? abnormal Not Available [facility] (Lab) [address] [place], [address], 12/03/2022 14:02:06 12/04/19 23 12/03/2022 HEMOG LOBIN A1C HA1C 6.1 % 4.0-6. 0 high Diabe mir Scree geovanny Crite chaim: <5.7% Consi stent with absen ce of diabe mir 5.7-6 .4% Consi stent with incre ased risk for diabe mir (pred iabet es) >OR=6 .5% Consi stent with diabe mir REFER ENCE: Diabe mir Care 2016, 39(Guerrero ppl.1 ):s13 -s22 Not Available [facility] (Lab) [address] [place], [address], 12/03/2022 21:43:08 07/31/19 23 07/30/2022 XR, ranjit gilda [facility] [address] [facility] [place] [address] Patien t Name: YADY CORADO Access ion #: [id number] Sex: M : 1945 7 Locati on: MOP Attend ing Physic evan: LOPEZ GALARZA Orderi Physic evan: LOPEZ GALARZA Exam Date: 023 11:32 AM Exam Name: XR SHOULD ER RT Admitt ing Diagno sis(es ): RADIOL OGY REPORT - FINAL EXAM: XR SHOULD ER RT HISTOR Y: PAIN RT SHOULD ER 76-yea r-old male with right should er pain, injury while leyda g. COMPAR CASSY: None availa ble. TECHNI QUE: Four views of the right should er were perfor med. FINDIN GS: No acute fractu re or disloc ation are identi fied about the right should er. There is acromi oclavi cular hypert rophy. A bone spur projec ts inferi rafal from the unders urface of the acromi on. There is loss of subacr omial space. There is mild to modera te glenoh umeral osteoa rthrit is with margin al osteop hytes inferi rafal. Page [address] [facility] Pati t Name: YADY CORADO Access ion #: [id number] Sex: M : 1945 7 Exam Date: 11:32 AM Exam Name: XR SHOULD ER RT Admitt ing Diagno sis(es ): IMPRES EZE: 1. Degene rative change s of the right should er withou t eviden ce of fractu re. 2. Acromi oclavi cular hypert rophy and loss of subacr omial space are sugges tive of signif icant rotato r cuff tendin opathy . Create d and electr onical ly signed by: Chaparro wadsworth MD Signed Date: 1:19 PM (CT) Dictat ed by: Chaparro wadsworth MD DD: 1:19 PM (CT) DT: 1:19 PM (CT) Page 2 of 2 [email or web address] [facility] (Imaging) [address] [place], [address], 12/04/2022 10:31:04 08/28/19 23 08/27/2022 XR, shoul gilda, 2 or more view [facility] [address] [facility] [place] [address] Arnold bishop Name: YADY CORADO Access ion #: [id number] Sex: M : 1945 4 Locati on: RAD Attend ing Physic evan: LOPEZ GALARZA Orderi ng Physic evan: LOPEZ GALARZA Exam Date: 4:09 PM Exam Name: XR SHOULD ER LT Admitt ing Diagno sis(es ): RADIOL OGY REPORT - FINAL EXAM: XR SHOULD ER LT HISTOR Y: LT SHOULD ER [age]IN76 -year- old male with left should er pain, no known injury . COMPAR CASSY: None availa ble. TECHNI QUE: Four views of the left should er were perfor med. FINDIN GS: No acute fractu re or disloc ation are identi fied about the left should er. There is acromi oclavi cular hypert rophy with near comple te loss of subacr omial space on the pre owned sales manager al rotati on view. There is mild glenoh umeral osteoa rthrit is. IMPRES EZE: Page [address] [facility] Arnold bishop Name: YADY CORADO Access ion #: [id number] Sex: M : 1945 4 Exam Date: 023 4:09 PM Exam Name: XR SHOULD ER LT Admitt ing Diagno sis(es ): 1. No fractu re of the left should er. 2. Acromi oclavi cular hypert rophy and loss of subacr omial space may be relate d to rotato r cuff tendin opathy and subacr omial imping ement. Create d and electr onical ly signed by: Chaparro wadsworth MD Signed Date: 5:14 PM (CT) Dictat ed by: Chaparro wadsworth MD DD: 5:14 PM (CT) DT: 5:14 PM (CT) Page 2 of 2 [email or web address] [facility] (Imaging) [address] [place], [address], 12/04/2022 10:31:05 09/19/19 24 09/09/2023 , [place] [facility] valeria montoya No observ ation record ed. BARCODE Not Available 2023 15:28:16 Result Notes None recorded. 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 7873726867649 00 Active 2022 Not Available [facility] 3 09:51:01 Tendinitis of right rotator cuff 4171179151396 9104 Active 2022 Not Available [facility] 3 09:51:01 Pain of shoulder region 96826517 Active 2022 Not Available [facility] 3 09:51:01 Pain of left shoulder joint 2907896227958 9109 Active 2022 Not Available [facility] 3 09:51:01 Tendinitis of left rotator cuff 8704721335994 9101 Active 2022 Not Available [facility] 3 09:51:01 Dysuria 61038978 Active 2022 Not Available [facility] 3 09:51:01 Dyslipidem ia 200653662 Active 2018 Not Available [facility] 3 09:51:01 Hypertensi ve disorder 80553426 Active Not Available [facility] 3 09:51:01 Umbilical hernia 957298881 Active Not Available [facility] 3 09:51:01 Diabetes mellitus 85064257 Active Not Available [facility] 3 09:51:01 Problem Notes None recorded. Procedures Surgical History Date Name Laterality Status Provider Name and Address Organization Details Recorded Time 08/31/19 23 Ortho - Cortisone Injection completed Chaitanya Maynard MD [address], [place], [address], [facility] [employer] [facility] 08/30/2022 11:34:44 08/03/19 Ortho - Cortisone Injection completed Chaitanya Maynard MD [address], [address], [facility] 08/02/2022 13:09:18 Prostatectomy completed Not Available [facility] 06/06/2022 04:43:13 Imaging Results Imaging Date Name Status LastModified by Organization Details LastModified Time 07/30/2022 XR, shoulder completed [email or web address] [facility] (Imaging) [address] [place], [address], 12/04/2022 10:31:04 08/27/2022 XR, shoulder, 2 or more view completed [email or web address] [facility] (Imaging) [address] [place], [address], 12/04/2022 10:31:05 09/09/2023 US, echocardiogram completed [facility] Inform ation not available 09/19/2023 15:28:16 Procedure Notes None recorded. Medical Equipment None Reported. Allergies No known drug allergies Medications Name Sig Start Date Stop Date Status Note LastModified by Organization Details LastModified Time metformin 500 mg tablet TAKE 2 TABLETS BY MOUTH TWICE DAILY 2022 active Not Available Not Available Not Avai lable clonidine HCl 0.1 mg tablet Take 1 tablet every day by oral route at bedtime. 08/02 completed Not Available Not Available Not Available atorvastati n 20 mg tablet Take 1 tablet every day by oral route. 12/31 completed Not Available Not Available Not Available atorvastati n 10 mg tablet TAKE 1 TABLET BY MOUTH DAILY 2022 active Not Available Not Available Not Avai lable prednisone 10 mg tablets in a dose pack Take 1 tab by mouth, 3 times a day for 3 daysTake 1 tab by mouth 2 times a day for 2 daysTake 1 tab by mouth once a day for 1 day 12/03 completed Not Available Not Available Not Available Kenalog 10 mg/mL suspension for injection Take 20 mg by injection route. 12/03 completed [facility]: [phone] Not Available Not Available Not Available metoprolol tartrate 50 mg tablet TAKE 1 TABLET BY MOUTH TWICE DAILY active Not Available Not Available No t Available lisinopril 10 mg-hydrochl orothiazide 12.5 mg tablet TAKE 1 TABLET BY MOUTH DAILY 2022 active Not Available Not Available Not Avai lable Vitamin D2 1,250 mcg (50,000 unit) capsule TAKE 1 CAPSULE EVERY WEEK 11/27 completed Not Available Not Available Not Available Benadryl 25 mg capsule Take 1 capsule twice a day by oral route. 07/27 completed Not Available Not Available Not Available Fish Oil 2015 active Not Available Not Available Not Avai lable Vitamin D 2019 active Not Available Not Available Not Avai lable Kelle Aspirin 2015 active Not Available Not Available Not Avai lable Allergy Relief (cetirizine ) 08/08 completed Not Available Not Available Not Available Prodigy No Coding strips Take 1 strip every day by miscell. route. active Not Available Not Available No t Available ropivacaine (PF) 5 mg/mL (0.5 %) injection solution Take 20 mg by injection route. 12/03 completed [facility] [phone] Not Available Not Available Not Available Vitals Date Recorded Body height Body mass index (BMI) Body weight Provider Name and Address Organization Details Last Updated DateTime 08/02/2022 165.1 cm 33.3 kg/m2 29836.47 g JESSE Serna DC [employer] [facility] [employer] 08/02/2022 12:58:31 Date Recorded Body height Body mass index (BMI) Body weight Body temperature Heart rate Systolic blood pressure Diastolic blood pressure Provider Name and Address Organization Details Last Updated DateTime 165.1 cm 33.4 kg/m2 48165.0 7 g 97.3 [degF] 57 /min 130 mm[Hg] 70 mm[Hg] PRIYANK Lang DC [employer] [facility] [employer] 16:20:22 Date Recorded Body height Body mass index (BMI) Body weight Provider Name and Address Organization Details Last Updated DateTime 08/30/2022 165.1 cm 33.6 kg/m2 50890.66 g Adrienne Salguero DC [employer] 08/30/2022 11:10:09 Date Recorded Body height Body mass index (BMI) Body weight Provider Name and Address Organization Details Last Updated DateTime 10/04/2022 165.1 cm 33.6 kg/m2 33410.66 g Lola GutiérrezBEE whitley DC [employer] [facility] [employer] 10/04/2022 11:23:12 Date Recorded Body height Body mass index (BMI) Body weight Body temperature Heart rate Systolic blood pressure Diastolic blood pressure Provider Name and Address Organization Details Last Updated DateTime 165.1 cm 33.3 kg/m2 81225.4 7 g 98.1 [degF] 62 /min 120 mm[Hg] 76 mm[Hg] Summer alamo RN [facility] [employer] [facility] 10:49:43 Social History Question Answer Notes LastModified by Organization Details LastModified Time Tobacco Smoking Status Never Smoker Not Available [facility] 06/06/2022 04:42:06 Do You Have An Advance Directive? No MIGRATION.0301 [id number] Information not available 06/06/2022 Are You Blind Or Do You Have Difficulty Seeing? No MIGRATION.0301 960370 Information not available 06/06/2022 What Is Your Level Of Caffeine Consumption? Occasional MIGRATION.0301 027254 Information not available 06/06/2022 How Much Tobacco Do You Chew? None MIGRATION.0301 053415 Information not available 06/06/2022 In The 14 Days Before Symptom Onset, Have You Had Close Contact With A Laboratory-confi rmed COVID-19 While That Case Was Ill? No MIGRATION.030 571680 Information not available 06/06/2022 In The 14 Days Before Symptom Onset, Have You Had Close Contact With A Person Who Is Under Investigation For COVID-19 While That Person Was Ill? No MIGRATION.0301 245609 Information not available 06/06/2022 Are You Deaf Or Do You Have Serious Difficulty Hearing? Yes Wears Hearing Aids MIGRATION.0301 856221 Information not available 06/06/2022 What Type Of Diet Are You Following? REGULAR MIGRATION.0301 900251 Information not available 06/06/2022 What Is The Highest Grade Or Level Of School You Have Completed Or The Highest Degree You Have Received? [id number] MIGRATION.0301 961723 Information not available 06/06/2022 Have There Been Any Changes To Your Family Or Social Situation? No MIGRATION.0301 610671 Information not available 06/06/2022 What Is The Fluoride Status Of Your Home? Unknown MIGRATION.0301 699885 Information not available 06/06/2022 Are There Any Guns Present In Your Home? No MIGRATION.0301 647586 Information not available 06/06/2022 Do You Use Insect Repellent Routinely? No MIGRATION.0301 409880 Information not available 06/06/2022 Where Do You Live? [place]House MIGRATION.0301 723559 Information not available 06/06/2022 Do You Have A Medical Power Of Electric Blanket Wirer? No MIGRATION.0301 235933 Information not available 06/06/2022 What Was The Date Of Your Most Recent Tobacco Screening? 12/03/2022 [email or web address] Information not available 12/03/2022 Have You Ever Been Counseled For Unhealthy Alcohol Use? No MIGRATION.0301 481792 Information not available 06/06/2022 Do You Have Any Pets? No MIGRATION.0301 630726 Information not available 06/06/2022 What Is Your Relationship Status? MIGRATION.0301 542956 Information not available 06/06/2022 Do You Use Your Seat Belt Or Car Seat Routinely? Yes MIGRATION.0301 974774 Information not available 06/06/2022 Do You Have Smoke And Carbon Monoxide Detectors In Your Home? Yes MIGRATION.0301 294572 Information not available 06/06/2022 Are You Passively Exposed To Smoke? No MIGRATION.0301 886693 Information not available 06/06/2022 Are There Any Smokers In Your House? No MIGRATION.0301 128850 Information not available 06/06/2022 How Much Tobacco Do You Smoke? No MIGRATION.0301 047970 Information not available 06/06/2022 What Types Of Sporting Activities Do You Participate In? None MIGRATION.0301 999163 Information not available 06/06/2022 Do You Use Sunscreen Routinely? Yes MIGRATION.0301 470482 Information not available 06/06/2022 Has Tobacco Cessation Counseling Been Provided? No Not Needed-nev er Smoked MIGRATION.0301 191645 Information not available 06/06/2022 How Many Years Have You Smoked Tobacco? 20 Information not available 08/02/2022 Have You Recently Traveled Abroad? No MIGRATION.0301 750263 Information not available 06/06/2022 Do You Have Any Dietary Restrictions? No MIGRATION.0301 017860 Information not available 06/06/2022 Sex: Male Functional Status Question Answer Note LastModified by Organizat ion Details LastModified Time Do you or have you ever used smokeless tobacco? Never used smokeless tobacco MIGRATION.236528 0601 Information not available 06/06/2022 Do you have difficulty walking or climbing stairs? No MIGRATION.763295 3449 Information not available 06/06/2022 Do you have transportation difficulties? No MIGRATION.244535 0918 Information not available 06/06/2022 Are you able to care for yourself? Yes MIGRATION.787720 4440 Information not available 06/06/2022 Do you have difficulty dressing or bathing? No MIGRATION.218223 7702 Information not available 06/06/2022 Do you or have you ever used e-cigarettes or vape? Never used electronic cigarettes MIGRATION.558082 4603 Information not available 06/06/2022 What is your exercise level? Occasional MIGRATION.940323 3411 Information not available 06/06/2022 Do you use any illicit or recreational drugs? No MIGRATION.037408 9560 Information not available 06/06/2022 Do you or have you ever used any other forms of tobacco or nicotine? Yes Information not available 08/02/2022 What is your level of alcohol consumption? Moderate MIGRATION.831337 9881 Information not available 06/06/2022 Are you able to walk? YESWOREST MIGRATION.625642 4575 Information not available 06/06/2022 Do you have difficulty doing errands alone? No MIGRATION.150141 4596 Information not available 06/06/2022 What is your occupation? retired MIGRATION.059190 8768 Information not available 06/06/2022 Mental Status Question Answer Note LastModified by Organizat ion Details LastModified Time Do you feel stressed (tense, restless, nervous, or anxious, or unable to sleep at night)? [id number] MIGRATION.97945532 26 Information not available 06/06/2022 Do you have difficulty concentrating, remembering or making decisions? No MIGRATION.51417006 26 Information not available 06/06/2022 Family History Relationship Description Onset Age of this Age Resolved Age Notes LastModified by Organization Details LastModified Time Mother Heart disease MIGRATION.733 [id number] Not available 06/06/2022 04:43:22 Mother Disorder of intestine MIGRATION.697 0359834 Not available 06/06/2022 04:43:22 Father Heart disease MIGRATION.688 5460891 Not available 06/06/2022 04:43:22 Medical History Condition Response NERVE DISEASE N BLINDNESS N RHEUMATIC FEVER N KIDNEY STONES N BLADDER PROBLEMS N MRSA N OTHER # 1 N POLIO N LUNG DISEASE/DISORDER N RADIATION / CHEMOTHERAPY N COPD N Other # 2 N BLOOD DISEASES N EAR OR HEARING PROBLEMS N MUMPS N DEPRESSION (INCLUDING POST ) N BOWEL PROBLEMS N STROKE/TIA N ULCERS N BENIGN PROSTATIC HYPERPLASIA N MEASLES N MYOCARDIAL INFARCTION N OBESITY N GERD/NAUSEA N ANEURYSM N URINARY/BLADDER/KIDNEY PROBLEMS N CORONARY ARTERY DISEASE (CAD) N Do you have Advance directive? N ADDICTION CONCERNS N Impotence N ENDOMETRIOSIS N USE OF BLOOD THINNERS N SKIN PROBLEMS N GASTROINTESTINAL DISORDER N PERIPHERAL VASCULAR DISEASE N MUSCLE,JOINT OR BONE PROBLEMS N GASTROINTESTINAL BLEEDING N Do you have a living will? N BLOOD CLOTS N ASTHMA N CATARACTS N ERECTILE DYSFUNCTION N VARICOSITIES N GI PROBLEMS N Low Testosterone N INFERTILITY N AIDS/HIV N CHEMOTHERAPY / RADIATION N LIVER DISEASE N MALE HYPOGONADISM N HYPERTENSION Y Deficiency N ANXIETY DISORDER N BLOOD TRANSFUSION N ANEMIA/BLOOD DISORDER N CHRONIC EAR INFECTIONS N BRONCHITIS N TUBERCULOSIS N GLAUCOMA N FOOT PROBLEM N DIVERTICULITIS N SLEEP APNEA N CHICKENPOX N INFECTIOUS DISEASE N PROSTATE Y HEART ARRHYTHMIA N INSOMNIA N HIGH CHOLESTEROL / HYPERLIPIDEMIA Y EYE PROBLEMS N EDEMA N CHRONIC PAIN SYNDROME N CAROTID BLOCKAGE N CONSTIPATION N BACK / NECK PROBLEMS N HAVE YOU BEEN HOSPITALIZED OR SEEN IN [facility] IN THE PAST YEAR ? N ATHEROSCLEROSIS N BREAST PROBLEMS N DIALYSIS N ECZEMA N OSTEOPOROSIS N ARTHRITIS N Do you have a healthcare POA? N APPENDICITIS N DIABETES, TYPE Y BAD TEETH N ENT N HEARTBURN / REFLUX N AFIB N AUTISM SPECTRUM DISORDER (ASD) N HEPATITIS / LIVER DISEASE N GOUT N SLEEP DISORDER N ALZHEIMER'S DISEASE N Brain Problems N DEMENTIA N HERPES N SEIZURES/EPILEPSY N HEADACHES/MIGRAINES N VASCULAR DISEASE N PACEMAKER N Blood Disorder N DIZZINESS N HEART DISEASE/HEART PROBLEMS N KIDNEY DISEASE N MULTIPLE SCLEROSIS N CANCER: SPECIFY Y CARDIAC ARRHYTHMIA N ATRIAL FIBRILLATION N Gall Stones N PULMONARY EMBOLISM N AUTOIMMUNE DISEASE N Immunizations Vaccine Type Date Status Note Provider Nam e and Address Organization Details Recorded Time COVID-19, mRNA, LNP-S, PF, 30 mcg/0.3 mL dose 09/07/2020 completed Not Available [facility] 3 09:51:01 COVID-19, mRNA, LNP-S, PF, 30 mcg/0.3 mL dose 08/16/2020 completed Not Available [facility] 3 09:51:01 Past Encounters Encounter ID Performer Location Encounter Start Date Encounter Closed Date Diagnosis/Indication Diagnosis SNOMED-CT Code Diagnosis ICD10 Code Diagnosis Note [id number] Jas Galarza MD [facility] Internal Med [address] [place] [address] 08/04/2020 00:00:00 08/06/2020 15:18:58 [id number] Jas Galarza MD [facility] Internal Med [address] [place] [address] 12/08/2020 00:00:00 12/08/2020 22:39:54 [id number] Jas Galarza MD [facility] Internal Med [facility] [address] [address] 08/07/2021 00:00:00 08/28/2021 21:25:19 [id number] Jas Galarza MD [facility] Internal Med [facility] [address] [facility] [address] 12/18/2021 00:00:00 12/23/2021 14:23:53 [id number] Jas Galarza MD [facility] Internal Med [facility] [address] [address] 07/30/2022 11:02:39 07/30/2022 12:01:48 Hypertensive disorder 82194403 I10 Diabetes mellitus 339343 09 E11.9 Pain of ri ght shoulder joint 8566988220 7538172 M25.511 Dyslipidemia 748832892 E 78.5 Umbilical hernia 0057035 07 K42.9 [id number] Chaitanya Maynard MD [facility] [place] 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 [place] [address] 08/30/2022 11:07:42 08/30/2022 11:42:53 Pain of right shoulder joint 3455944385 3318406 M25.511 Tendinitis of right rotator cuff 0296873987 1744812 M67.813 Pain of le ft shoulder joint 2113774228 9242279 M25.512 Tendinitis of left rotator cuff 6502546148 6746060 M67.814 [id number] Chaitanya Maynard MD [facility] [place] [address] [place] [address] 10/04/2022 11:14:36 10/04/2022 12:19:10 Tendinitis of right rotator cuff [id number] M67.813 Tendinitis of left rotator cuff [id number] M67.814 [id number] Jas Galarza MD [facility] Internal Med [address] [facility] [address] [place] [address] 12/03/2022 10:33:56 12/03/2022 11:22:41 Diabetes mellitus 83200926 E11.9 Hypertensive disorder 38 104332 I10 Dysuria 72407676 R30.0 Health Concerns Section Related Observation LastModified by Organization Detai ls LastModified Time None Recorded Concern Status LastModified by Organization Details LastModified Time None Recorded Advance Directives Directive N: Payers Encounter Date Sequence Insurance Name Policy Number Policy Hassan Covered Member ID Hassan Member ID Guarantor Name 08/02/2022 1 [place] [id number] [place] 08/02/2022 2 [place] [id number] R V [place] [id number] [place] 08/27/2022 1 [place] [id number] [place] 08/27/2022 2 [place] [id number] R V [place] [id number] [place] 08/30/2022 1 [place] [id number] [place] 08/30/2022 2 [place] [id number] [place] [id number] [place] 10/04/2022 1 [place] [id number] [place] 10/04/2022 2 [place] [id number] [place] [id number] [place] [place] 12/03/2022 1 [place] [id number] [place] 12/03/2022 2 [place] [id number] [place] [id number] [place] [place] Notes Date Note Type Note Provider Name and Address Organization Details Recorded Time 08/02/2022 text/html Patient presents shoulder pain right. He has had pain off and on for years got worse after bowling he has flared up his shoulder is unable raise it above the horizontal he is weak in abduction external rotation has pain to palpation manipulation interestingly not only is the weak with active motion but passively he has got loss of motion as well. Chaitanya Maynard MD [address], [place], [address], [employer] 08/02/2022 13:11:03 08/27/2022 text/html reaching for charley geoffrey on the cabinet the other day and he has had left shoulder pain ever since no neck problems no numbness or tingling hard to raise his arm up above his head without pain Jas Galarza MD [address], [place], [address], [employer] 08/27/2022 23:02:21 08/30/2022 text/html Patient returns shoulder pain left. The right shoulder pain has responded well to conservative treatment. I gave him a shot and some anti-inflammatory medication and he has done well. He still hurts but not so bad now he strained his left shoulder and has pain pain is localized most of the joint itself. Chaitanya Maynard MD [address], [place], [address], [employer] 08/30/2022 11:36:13 10/04/2022 text/html Patient returns shoulder pain bilaterally. He has had injections in both shoulders that seemingly is alleviated a fair bit of pain he remains symptomatic particularly with overhead motion but is willing to live with that for the present time. Chaitanya Maynard MD [address], [place], [address], [employer] 10/04/2022 12:12:57 12/03/2022 text/html Diabetes not ondina ing sugar but no polyphagia or polydipsiaPain in right shoulder seeing OrthoDyslipidemia does try to watch diet but needs to have blood workHypertension no headache no dizzinessUmbilical hernia a little large MD Monique Rivera, [facility] [address], [place], [address], [place] [facility] 12/03/2022 12:18:07
--- OUTSIDE RECORDS SUMMARY | 2024-08-17 16:01 | XMS_ITS | Encounter Summary ---
Author Organization [facility] Health Address [address] [place] [address] Care Team Providers Care Wood Router Hand Name Role Phone Ramon Live MD Primary Care Provider [phone] Encounter Details Date Type Department Care Team (Late st Contact Info) Description 08/14/2012 [facility] Visit EXTERNAL [facility] DEPT Ramon Live MD [address] [place] [id number] Social History Tobacco Use Types Packs/Day Years Used Date Smoking Tobacco: Former Cigarettes Alcohol Use Standard Drinks/Week Comments Yes 0 (1 standard drink = 0.6 oz pur e alcohol) Sex and Gender Information Value Date Recorded Sex Assigned at Not on file Legal Sex Male 4:30 AM [employer]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
== END 2024-08-17 15:55 | disposition home or self-care (01) ==
PROVIDERS: PCP Internal Medicine; Visit Provider Urology
DX: C61 Malignant neoplasm of prostate (principal); Z90.79 Acquired absence of other genital organ(s)
CPT/HCPCS: 74176

== ENCOUNTER 2025-02-18 17:08 | Inpatient (IN) | payer MEDICARE, SELFPAY ==
[2025-02-18] VITALS (12 sets, daily range): BP systolic 114–137; BP diastolic 51–74; PULSE 74–83; RESP 15–20; TEMP 37.3; O2SAT 98–100
--- NOTE | ~2025-02-18 | CT_ITS ---
CT cervical spine wo con HISTORY: fall COMPARISON: None TECHNIQUE: Axial images of the cervical spine were obtained. Multiplanar reconstruction in the coronal, sagittal and axial reformats to evaluate for cervical fracture. FINDINGS: The images demonstrate no acute fracture or paravertebral soft tissue swelling. Degenerative changes with disc bulging and uncovertebral hypertrophy are noted most significant at C6-C7 resulting in moderate to severe foraminal stenosis. The visualized aspect of the upper lungs are clear. IMPRESSION: No acute fracture or subluxation. All CT scans at this facility are performed using low dose modulation techniques as appropriate to perform exam including the following: automated exposure control; adjustment of the mA and/or kV according to patient size (this includes techniques or standardized protocols for targeted exams where does is matched to indication/reason for exam; i.e. extremities or head); use of iterative reconstruction technique). Reviewed, dictated and finalized at location S. ET MECHANIC IMPRESSION: No acute fracture or subluxation. All CT scans at this facility are performed using low dose modulation techniqu es as appropriate to perform exam including the following: automated exposure c ontrol; adjustment of the mA and/or kV according to patient size (this includes techniques or standardized protocols for targeted exams where does is matched to indication/reason for exam; i.e. extremities or head); use of iterative joe nstruction technique).
--- NOTE | ~2025-02-18 | XR_ITS ---
EXAMINATION: XR shoulder RT min 2V, 02/18/2025 17:56 BARREL ASSEMBLER HISTORY: right shoulder pain, fall COMPARISON: No comparisons available. Findings: There is a comminuted displaced fracture of the proximal humerus extending into the humeral neck. Severe degenerative changes. Soft tissue swelling. Impression: Fracture detailed above Reviewed, dictated and finalized at location P. EL ASSEMBLER Impression: Fracture detailed above
--- NOTE | ~2025-02-18 | CT_ITS ---
CT brain wo con HISTORY:head injury COMPARISON: None. TECHNIQUE: Axial images were obtained of the head without intravenous contrast. FINDINGS: No acute intracranial hemorrhage, mass effect or midline shift. No extra-axial fluid collections. There is generalized atrophy and chronic white matter microangiopathic changes. There isleft frontal scalp hematoma.Visualized paranasal sinuses and mastoid air cells are clear. IMPRESSION: No acute intracranial hemorrhage or extra axial fluid collections. All CT scans at this facility are performed using low dose modulation techniques as appropriate to perform exam including the following: automated exposure control; use of iterative reconstruction technique; adjustment of the mA and/or kV according to patient size (this includes techniques or standardized protocols for targeted exams where dose is matched to indication/reason for exam). Reviewed, dictated and finalized at location S. FORM MATERIAL HANDLING SUPERVISOR IMPRESSION: No acute intracranial hemorrhage or extra axial fluid collections. All CT scans at this facility are performed using low dose modulation techniqu es as appropriate to perform exam including the following: automated exposure c ontrol; use of iterative reconstruction technique; adjustment of the mA and/or kV according to patient size (this includes techniques or standardized protocol s for targeted exams where dose is matched to indication/reason for exam).
--- NOTE | 2025-02-18 17:50 | ED.FALL ---
HPI - Fall General Chief Complaint: Fall <Nidia Watson PA-C - Last Filed: 02/27/25 15:01> Stated Complaint: fell <Nidia Watson PA-C - Last Filed: 02/27/25 15:01> Time Seen by Provider: 02/18/25 17:50 <Nidia Watson PA-C - Last Filed: 02/27/25 15:01> Focused HPI: This is a 79 year old male that presents to the ER for 2 falls. Reports on Saturday he tripped over a cord. Reports today he fell trying to get out of bed. Reports he hit his head on Saturday when he fell. He did not lose consciousness. Additionally reports right shoulder pain since the fall. GENERAL: Well-appearing, well-nourished, and in no acute distress. HEAD: Normocephalic. Contusion to the forehead. CHEST: Clear to auscultation. ?No respiratory distress. HEART: Regular rate and rhythm.? NEURO: ?Alert and oriented x3. Patient screened in triage and initial orders placed.? ?Additional care and disposition to be based upon?diagnostic testing and treatment. <Nidia Wtason PA-C - Last Filed: 02/27/25 15:01> Source: patient and family (son) <Shawna Gonsalez MD - Last Filed: 02/19/25 19:03> Mode of arrival: ambulatory <Shawna Gonsalez MD - Last Filed: 02/19/25 19:03> Limitations: no limitations <Shawna Gonsalez MD - Last Filed: 02/19/25 19:03> History of Present Illness HPI Narrative: Agree with the above with the following additions/corrections: Right hand dominant male who lives alone (other than with dog) has had 2 falls. Saturday he slipped and fell from standing, getting tangled in something. Struck his head. Today he also fell. Saw his PCP Dr Galarza today who had concerns. Denies loss of consciousness of being on anticoagulation but is on aspirin. History of hernia repair and prostate cancer (initially diagnosed 25 years ago status post prostatectomy but with recurrent malignancy in tract for which he sees Dr Calero and is on both a pill and shot as chemotherapy). Son is concerned as he states father doesn't have much upper body strength. Patient says he doesn't need a cane/walker for ambulation. Patient states his pain in his right shoulder isn't that bad. Asks me kindly, Hey lady, Are you in control? Good girl. He reports he takes analgesic medication occasionally, two 200mg tablets of Ibuproefn BID. Denies paresthesias. <Shawna Gonsalez MD - Last Filed: 02/19/25 19:03> Related Data Home Medications: Home Medications ?Medication ?Instructions ?Recorded ?Confirmed ?Last Taken ?Type aspirin 81 mg tablet,delayed 81 mg PO DAILY 09/11/23 02/19/25 11/25/23 History release cholecalciferol (vitamin D3) 50 50 mcg PO DAILY 09/11/23 02/19/25 11/25/23 History mcg (2,000 unit) capsule docosahexaenoic acid (dha)-epa 120 1 cap PO DAILY 09/11/23 02/19/25 11/25/23 History mg-180 mg capsule (Fish Oil) lisinopril 20 mg tablet 20 mg PO DAILY 09/11/23 02/19/25 Unknown History mecobalamin (vitamin B12) 1,000 1,000 mcg PO DAILY 09/11/23 02/19/25 11/25/23 History mcg lozenges tamsulosin 0.4 mg capsule 0.4 mg PO DAILY 09/11/23 02/19/25 Unknown History atorvastatin 10 mg tablet (Lipitor) 10 mg PO DAILY 02/19/25 02/19/25 Unknown History enzalutamide 80 mg tablet (Xtandi) 160 mg PO DAILY 02/19/25 02/19/25 Unknown History <Nidia Watson PA-C - Last Filed: 02/27/25 15:01> Allergies/Adverse Reactions: Allergies Allergy/AdvReac Type Severity Reaction Status Date / Time No Known Allergies Allergy Verified 02/19/25 01:28 <Nidia Watson PA-C - Last Filed: 02/27/25 15:01> Review of Systems Review of Systems: All systems reviewed & are unremarkable except as noted in HPI and below <Nidia Watson PA-C - Last Filed: 02/27/25 15:01> [facility] Past Medical History Medical History: Medical History Right hand dominant BPH (benign prostatic hyperplasia) Diabetes <Nidia Watson PA-C - Last Filed: 02/27/25 15:01> Surgical History Surgical History: Surgical History History of ventral hernia repair Robotic assisted laparoscopic extended total extraperitoneal incarcerated ventral hernia repair with Synecor mesh ( [id number] ). 11/06/23 History of prostatectomy <Nidia Watson PA-C - Last Filed: 02/27/25 15:01> Family History Family History: Family History Father Heart disease Other Hypertension <Nidia Watson PA-C - Last Filed: 02/27/25 15:01> Social History Social History: Social History Social History: Lives with dog Smoking packs per day: 1.0 Smoking cigarettes per day: 20.0 Years smoked: 25 Smoking pack-years: 25.00 Smoking status: Former smoker Tobacco type: cigarettes Smoking end date: 04/08/03 Alcohol intake: never Substance use: never Substance use type: does not use Last use: 11/26/83 Lack of Transportation: No Lack of Food: Never True Current Housing: I Have Housing Concerned About Future Housing: No Difficulty Paying Gas/Electric Bills: YES Difficulty Paying for Meds: YES Currently Unemployed: No Education: High School Diploma/GED Difficulty w/ Childcare or Family Care: No Living arrangements: alone Spiritual care concerns: No <Nidia Watson PA-C - Last Filed: 02/27/25 15:01> Exam Narrative: GENERAL: Well-appearing, well-nourished, and in no acute distress. HEAD: Well healing 2cm laceration along forehead. EYES: Non injected, non icteric ENT: Nares clear, no rhinorrhea or epistaxis. Gross auditory acuity intact. NECK: Supple. No meningismus. CHEST: Speaking in full sentences. No respiratory distress. HEART: Regular rate and rhythm. . ABDOMEN: Soft, nondistended. No rigidity or guarding. Not peritoneal EXTREMITIES: Deformity with irregularity on palpation of proximal right humerus. Able to demonstrate some slight flexion and extension at right elbow. Demonstrates flexion/extension at right wrist and some ROM of fingers. SKIN: Warm, dry. Ecchymosis along medial aspect of right upper extremity at the humerus and forearm. NEURO: No focal deficits. Alert and oriented. Answering questions. Following commands. Normal speech without aphasia or dysarthria. Sensation intact throughout right upper extremity including overlying axillary nerve/deltoid. PSYCH: Normal mood and affect. <Shawna Gonsalez MD - Last Filed: 02/19/25 19:03> Course Vital Signs Vital signs: Vital Signs Temperature 99.1 F 02/18/25 17:22 Pulse Rate 83 02/18/25 17:22 Respiratory Rate 20 02/18/25 17:22 Blood Pressure 114/54 L 02/18/25 17:22 Pulse Oximetry 99 02/18/25 17:22 Oxygen Delivery Room Air 02/18/25 17:22 Temperature 97.6 F 02/22/25 14:00 Pulse Rate 73 02/22/25 14:00 Respiratory Rate 16 02/22/25 14:00 Blood Pressure 114/47 L 02/22/25 14:00 Pulse Oximetry 100 02/22/25 14:00 Oxygen Delivery Room Air 02/22/25 08:30 <Nidia Watson PA-C - Last Filed: 02/27/25 15:01> Vital Signs Temperature 99.1 F 02/18/25 17:22 Pulse Rate 83 02/18/25 17:22 Respiratory Rate 20 02/18/25 17:22 Blood Pressure 114/54 L 02/18/25 17:22 Pulse Oximetry 99 02/18/25 17:22 Oxygen Delivery Room Air 02/18/25 17:22 Temperature 97.6 F 02/22/25 14:00 Pulse Rate 73 02/22/25 14:00 Respiratory Rate 16 02/22/25 14:00 Blood Pressure 114/47 L 02/22/25 14:00 Pulse Oximetry 100 02/22/25 14:00 Oxygen Delivery Room Air 02/22/25 08:30 <Shawna Gonsalez MD - Last Filed: 02/19/25 19:03> MDM - Fall MDM Narrative Medical decision making narrative: Right hand dominant 79 yo male presents after 2 falls recently. Struck his head when he slipped on Saturday. Today fell and landed on right arm. On aspirin. In the emergency department he is afebrile with vital signs notable for a slightly low diastolic blood pressure but mean arterial pressure of 74 mm Hg.. Plain film imaging discussed with on-call orthopedic surgeon Dr Hurd who recommends shoulder immobilizer. Initial plan was discharge home and outpatient follow up. Son at bedside notes significant concerns with his father's ability to perform ADLs, unable to lift himself up. Discussed with patient that because he is right hand dominant, will have difficulty wiping his butt after stooling, etc. Will obtain basic labs. Patient amenable to staying. Discussed with electronic plotting system operator hospitalist Dr Sears. PT/OT orders placed. <Nidia Watson PA-C - Last Filed: 02/27/25 15:01> Right hand dominant 79 yo male presents after 2 falls recently. STruck his head when he slipped on Saturday. Today fell and landed on right arm. On aspirin. In the emergency department he is afebrile with vital signs notable for a slightly low diastolic blood pressure but mean arterial pressure of 74 mm Hg.. Plain film imaging discussed with on-call orthopedic surgeon Dr Hurd who recommends shoulder immobilizer. Initial plan was discharge home and outpatient follow up. Son at bedside notes significant concerns with his father's ability to perform ADLs, unable to lift himself up. Discussed with patient that because he is right hand dominant, will have difficulty wiping his butt after stooling, etc. Will obtain basic labs. Patient amenable to staying. Discussed with electronic plotting system operator hospitalist Dr Sears. PT/OT orders placed. <Shawna Gonsalez MD - Last Filed: 02/19/25 19:03> Differential Diagnosis Differential diagnosis: Likely dislocation of shoulder region, compression fracture, concussion with loss of consciousness, concussion without loss of consciousness and other (fracture; intracranial hemorrhage) <Shawna Gonsalez MD - Last Filed: 02/19/25 19:03> Lab Data Attestation: I reviewed the patient's lab results. <Shawna Gonsalez MD - Last Filed: 02/19/25 19:03> Result diagrams: 02/22/25 04:05 02/18/25 21:49 <Nidia Watson PA-C - Last Filed: 02/27/25 15:01> Labs: Lab Results 02/18/25 02/18/25 Range/Units 21:39 21:49 WBC 11.9 H (4.5-10.0) K/mm3 RBC 3.50 L (4.6-6.20) M/mm3 Hgb 10.6 L (14.0-18.0) g/dL Hct 33.2 L (42.0-52.0) % MCV 94.9 (80-100) fl MCH 30.3 (26-34) pg MCHC 31.9 L (32-36) g/dl RDW 13.2 (11.5-14.5) % Plt Count 268 (150-375) k/mm3 MPV 9.4 (7.4-10.4) fl Immature Gran % (Auto) 0.6 H (0-0.5) % Neut % (Auto) 75.3 H (45.5-73.1) % Lymph % (Auto) 13.9 L (18.3-44.2) % [place] % (Auto) 9.6 H (2.6-8.5) % Eos % (Auto) 0.3 (0-4.4) % Baso % (Auto) 0.3 (0.2-1.2) % Lymph # (Auto) 1.66 (0.9-3.2) K/mm3 [place] # (Auto) 1.2 H (0.1-0.6) K/mm3 Eos # (Auto) 0.0 (0-0.3) K/mm3 Baso # (Auto) 0.0 (0.0-0.1) K/mm3 Abs Immat Gran (auto) 0.07 H (0.00-0.031) K/mm3 Absolute Neuts (auto) 9.0 H (1.3-6.7) K/mm3 Absolute Nucleated RBC 0.000 (0.0-0.012) K/mm3 Nucleated RBC % 0.0 (0.0-0.2) % Sodium 143 (137-145) mmol/L Potassium 3.9 (3.4-5.0) mmol/L Chloride 108 H (98-107) mmol/L Carbon Dioxide 24 (22-30) mmol/L Anion Gap 11 (4-12) mmol/L BUN 48 H (9-20) mg/dL Creatinine 1.22 (0.7-1.3) mg/dL Estim Creat Clear Calc 39 ml/min Estimated GFR 57 L (59 - ) Glucose 111 H (65-110) mg/dL Calcium 9.8 (8.4-10.2) mg/dL Total Bilirubin 1.1 (0.2-1.3) mg/dL AST 37 (17-59) U/L ALT 18 (6-50) U/L Alkaline Phosphatase 76 (38-126) U/L Total Protein 7.5 (6.3-8.2) g/dL Albumin 4.3 (3.5-5.1) g/dL Urine Color Yellow (Yellow) Urine Appearance Cloudy H (Clear) Urine pH 5.0 (5.0-9.0) Ur Specific Hermann 1.022 (1.001-1.035) Urine Protein 1+ H (Negative) mg/dL Urine Glucose (UA) Negative (Negative) mg/dL Urine Ketones Trace H (Negative) mg/dL Ur Blood (Man) Negative (Negative) Urine Nitrate Negative (Negative) Urine Bilirubin Negative (Negative) Urine Urobilinogen 1.0 (<2.0) mg/dL Add Ur Microanalysis Reviewed Leukocyte Esterase Rfl Negative (Negative) CAROLE/UL Urine RBC 0-2 (0-2) /hpf Urine WBC 0-5 (0-3) /hpf Ur Squamous Epith Cells Occasional (Few) /hpf Urine Bacteria None seen /hpf Urine Casts >20 Hyaline Casts Present (None) /lpf <Nidia Watson PA-C - Last Filed: 02/27/25 15:01> Lab Results 02/18/25 02/18/25 Range/Units 21:39 21:49 WBC 11.9 H (4.5-10.0) K/mm3 RBC 3.50 L (4.6-6.20) M/mm3 Hgb 10.6 L (14.0-18.0) g/dL Hct 33.2 L (42.0-52.0) % MCV 94.9 (80-100) fl MCH 30.3 (26-34) pg MCHC 31.9 L (32-36) g/dl RDW 13.2 (11.5-14.5) % Plt Count 268 (150-375) k/mm3 MPV 9.4 (7.4-10.4) fl Immature Gran % (Auto) 0.6 H (0-0.5) % Neut % (Auto) 75.3 H (45.5-73.1) % Lymph % (Auto) 13.9 L (18.3-44.2) % [place] % (Auto) 9.6 H (2.6-8.5) % Eos % (Auto) 0.3 (0-4.4) % Baso % (Auto) 0.3 (0.2-1.2) % Lymph # (Auto) 1.66 (0.9-3.2) K/mm3 [place] # (Auto) 1.2 H (0.1-0.6) K/mm3 Eos # (Auto) 0.0 (0-0.3) K/mm3 Baso # (Auto) 0.0 (0.0-0.1) K/mm3 Abs Immat Gran (auto) 0.07 H (0.00-0.031) K/mm3 Absolute Neuts (auto) 9.0 H (1.3-6.7) K/mm3 Absolute Nucleated RBC 0.000 (0.0-0.012) K/mm3 Nucleated RBC % 0.0 (0.0-0.2) % Sodium 143 (137-145) mmol/L Potassium 3.9 (3.4-5.0) mmol/L Chloride 108 H (98-107) mmol/L Carbon Dioxide 24 (22-30) mmol/L Anion Gap 11 (4-12) mmol/L BUN 48 H (9-20) mg/dL Creatinine 1.22 (0.7-1.3) mg/dL Estim Creat Clear Calc 39 ml/min Estimated GFR 57 L (59 - ) Glucose 111 H (65-110) mg/dL Calcium 9.8 (8.4-10.2) mg/dL Total Bilirubin 1.1 (0.2-1.3) mg/dL AST 37 (17-59) U/L ALT 18 (6-50) U/L Alkaline Phosphatase 76 (38-126) U/L Total Protein 7.5 (6.3-8.2) g/dL Albumin 4.3 (3.5-5.1) g/dL Urine Color Yellow (Yellow) Urine Appearance Cloudy H (Clear) Urine pH 5.0 (5.0-9.0) Ur Specific Hermann 1.022 (1.001-1.035) Urine Protein 1+ H (Negative) mg/dL Urine Glucose (UA) Negative (Negative) mg/dL Urine Ketones Trace H (Negative) mg/dL Ur Blood (Man) Negative (Negative) Urine Nitrate Negative (Negative) Urine Bilirubin Negative (Negative) Urine Urobilinogen 1.0 (<2.0) mg/dL Add Ur Microanalysis Reviewed Leukocyte Esterase Rfl Negative (Negative) CAROLE/UL Urine RBC 0-2 (0-2) /hpf Urine WBC 0-5 (0-3) /hpf Ur Squamous Epith Cells Occasional (Few) /hpf Urine Bacteria None seen /hpf Urine Casts >20 Hyaline Casts Present (None) /lpf <Shawna Gonsalez MD - Last Filed: 02/19/25 19:03> Imaging Data Attestation: I personally reviewed and interpreted this imaging study as follows: <Shawna Gonsalez MD - Last Filed: 02/19/25 19:03> My impression: Comminuted and displaced fracture of the proximal humeral neck on my independent interpretation of x-ray shoulder; appears to have extension approximately 3 .5 cm into the humeral shaft <Shawna Gonsalez MD - Last Filed: 02/19/25 19:03> Radiologist's impression: There is a comminuted displaced fracture of the proximal humerus extending into the humeral neck. Severe degenerative changes. Soft tissue swelling. Impressions Shoulder X-Ray 02/18/25 18:11 Impression: Fracture detailed above Head CT 02/18/25 18:26 IMPRESSION: No acute intracranial hemorrhage or extra axial fluid collections. All CT scans at this facility are performed using low dose modulation techniques as appropriate to perform exam including the following: automated exposure control; use of iterative reconstruction technique; adjustment of the mA and/or kV according to patient size (this includes techniques or standardized protocols for targeted exams where dose is matched to indication/reason for exam). Cervical Spine CT 02/18/25 18:35 IMPRESSION: No acute fracture or subluxation. All CT scans at this facility are performed using low dose modulation techniques as appropriate to perform exam including the following: automated exposure control; adjustment of the mA and/or kV according to patient size (this includes techniques or standardized protocols for targeted exams where does is matched to indication/reason for exam; i.e. extremities or head); use of iterative reconstruction technique). <Shawna Gonsalez MD - Last Filed: 02/19/25 19:03> Discharge Plan Discharge Clinical Impression: Falls, Displaced fracture of proximal end of right humerus <Nidia Watson PA-C - Last Filed: 02/27/25 15:01> Patient Disposition: Still a Patient <Nidia Watson PA-C - Last Filed: 02/27/25 15:01> Condition: Stable <Nidia Watson PA-C - Last Filed: 02/27/25 15:01>
--- OUTSIDE RECORDS SUMMARY | 2025-02-18 18:18 | XMS_ITS | Clinical Summary ---
Author Organization [facility] Address [address] [place] [address] Care Team Providers Care Conduit Helper Name Role Phone Ramon Live MD Primary Care Provider [phone] [phone] Source Comments [facility],non-owned Affiliates and Associated Physician Practices is amultiple site organization consisting of ambulatory clinics and hospital sitesin [place], [place], [place] and [place]. This disclosure is being madepursuant to the Care Everywhere program and may not contain all information available regarding this patient. 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 Gender Identity Not on file Sexual Orientation [...] 10:17 AM CDT Height 165.1 cm (5' 5) 01/07/2015 10:17 AM CDT Body Mass Index 38.61 01/07/2015 10:17 AM CDT Plan of Treatment Health Maintenance Due Date Last Done Comments MEDICARE AWV 12 MONTHS 1944 DTAP/TDAP/TD VACCINES (1 - Tdap) 11/07/1963 ZZRETIRED DIABETES-STATIN 1984 ZOSTER VACCINE (1 of 2) 1994 PNEUMOCOCCAL VACCINE 50+ (2 of 2 - PCV) 01/06/2006 01/06/2005 DIABETES RETINOPATHY SCREENING 01/08/2012 DIABETES-FOOT EXAM WITH MONOFILAMENT 01/08/2012 DIABETES-HGB A1C 07/09/2015 01/07/2015, 08/2014, 01/06/2014, Additional history exists DIABETES-SERUM CREATININE 01/08/20162014, 08/10/2014, 08/12/2013, Additional history exists Respiratory Syncytial Virus (RSV) Vaccine Pt: or over 60 yrs (1 - 1-dose 75+ series) 11/07/2019 DEPRESSION SCREENING 04/08/2024 DIABETES - URINE PROTEIN SCREENING 04/08/2024 01/07/2015, 08/10/2014, 08/07/2011, Additional history exists COVID-19 VACCINE ( season) 2024 INFLUENZA VACCINE (#1) 2024 HEPATITIS B VACCINE Aged Out No [...] 1:29 PM CDT Narrative Resulting Agency Comment [facility] [address] [id number] us Ramon Live MD LAB - URINE CHEMISTRY ORD ERABLES Final Result [facility] INSURANCE BILL [address] [place] [address] * (ABNORMAL) HEMOGLOBIN A1C (01/07/2015 11:32 AM CDT) Hemoglobin A1c 7.0(H) 4.2 - 6.3 % [facility] INSURANCE BILL Comment:AVERAGE GLUCOSE MG/D L BLOOD 154 mg/dL Whole blood specimen (specimen) BLOOD SPECIMEN WITH EDTA / Unknown 01/07/2015 11:32 AM CDT 01/07/2015 1:27 PM CDT Narrative Resulting Agency Comment [facility] [address] [id number] us Ramon Live MD LAB - CHEMISTRY ORDERABLE S Final Result [facility] INSURANCE BILL [address] [place] [address] * (ABNORMAL) COMPREHENSIVE METABOLIC PANEL (01/07/2015 11:32 [...] 1:27 PM CDT Narrative Resulting Agency Comment [facility] [address] [place] [phone] Ramon Live MD LAB - CHEMISTRY ORDERABLE S Final Result [facility] INSURANCE BILL [address] [place] [address] from Last 3 Months or Most Recently Relevant to Health Maintenance Insurance MEDICARE ANTHEM SELF PAY NO INSURANCE Member Subscriber Plan / Payer (Ef fective for All Dates) Name:Asha Tabares Member ID:Not on file Relation to Subscriber:Not on file Name:Asha TABARES Subscriber ID:Not on file (Home) Address: [address] [place] [id number] Payer ID:Not on file Group ID:Not on file Type:Self Pay Address: [place], [place] Care Teams Conduit Helper Relationship Specialty Start Date End Date Ramon Live MD PCP - General 08/05/08
--- OUTSIDE RECORDS SUMMARY | 2025-02-18 18:19 | XMS_ITS | Encounter Summary ---
Author Organization [facility] Address [address] [place] [address] Care Team Providers Care Information Technology Analyst Name Role Phone Ramon Live MD Primary Care Provider [phone] [phone] Encounter Details Date Type Department Care Team (Late st Contact Info) Description 08/14/2012 [facility] Ramon Live MD [address] [place] [id number] Social History Tobacco Use Types Packs/Day Years Used Date Smoking Tobacco: Former Cigarettes Alcohol Use Standard Drinks/Week Comments Yes 0 (1 standard drink = 0.6 oz pur e alcohol) Sex and Gender Information Value Date Recorded Sex Assigned at Not on file Legal 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
--- OUTSIDE RECORDS SUMMARY | 2025-02-18 18:19 | XMS_ITS | Data Portability ---
Author Organization [facility] ELIANASara Roblero Address [address] [place] [address] Care Team Providers Care Assistant Professor Of Economics Name Role Phone ALE GALARZA Primary Care Provider Assessment Encounter Date Assessment Date Assessment LastModified by Organization Details LastModified Time 08/12/2023 08/12/2023 Obtain old records. Continue current therapy complete echo. Blood work. Surgical referral. Will follow-up with me in 4 months. Not available 08/24/2023 16:49:20 12/16/2023 12/16/2023 hypertension today's blood pressure 142/68 he does not want to go up on medication he says that he just wants to heal from the surgery and he will follow up in the office when he gets back from [place] but he will get it checked when he was in [place] BPH with urinary retention recently stable on Flomax. Prediabetes low carb diet low vitamin-D level supplementing snrh-jze-hdplwga low B12 he supplements orally he will see me when he gets back from [place] in several months Not available 01/05/2024 15:10:21 07/16/2024 07/16/2024 Reviewed his blo od work and his urinalysis Macrobid b.i.d. 5 days orthopedic referral for the shoulders atorvastatin 10 mg daily follow up 3 months [email or web address] Not available 07/18/2024 18:13:06 10/15/2024 10/15/2024 Continue current therapy follow up in 4 months hypertension lisinopril low B12 level cigj-qwo-qpeedpb supplementation dyslipidemia atorvastatin [email or web address] Not available 10/16/2024 00:04:28 Plan of Treatment Reminders Order Date Submit Date Provider Last Modified By Organization Details Last Modified Time Details Appointments ANY 15 2024 01:00P M Ale Galarza MD Not available Not available Not available Lab None recorded. Referral orthopedi c surgeon referral 2024 025 marcus Maynard MD, [address], [place], [address], 02/16/2025 16:08:39 general surgeon referral 2023 024 DM Partida MD, [address], [place], [address], 2023 12:52:17 Procedures None recorded. Surgeries None recorded. Imaging US, echocardi ogram 2023 024 [facility] (Cardiology [facility] Em[facility]), [address], [place], [address], 09/09/2023 14:39:18 Medication Orders Macrobid 100 mg capsule 2024 025 [id number], [address], [place], [place], [id number], 10/15/2024 14:24:47 atorvasta tin 10 mg tablet 2024 025 [email or web address] [facility] #[id number], [address], [place], [place], [id number], 07/16/2024 13:40:06 Patient TargetsNo targets recorded. Patient Instructions Encounter Date Encounter Id Patient Instructions Last Modified By Organization Details Last Modified Time 07/16/2024 [id number] A healthy lifestyle: care instructions Not available 07/16/2024 13:40:06 10/15/2024 [id number] A healthy lifestyle: care instructions [email or web address] Not available 10/15/2024 15:06:40 Reason for Referral General Surgeon Referral for [...] ardio gram No observ ation record ed. [email or web address] [address], [place], [address], 09/10/2023 10:35:54 09/17/19 24 09/16/2023 CT, abdom en + pelvi s, w/o contr ast No observ ation record ed. [email or web address] [address], [place], [address], 09/19/2023 12:24:01 09/19/19 24 09/09/2023 US, echo ardio gram No observ ation record ed. [address], [place], [address], 09/23/2023 13:45:55 08/19/19 25 08/17/2024 CT, abdom en + pelvi s, w/o contr ast No observ ation record ed. [address], [place], [address], 08/20/2024 23:13:22 Result Notes None recorded. Problems Name Problem SNOMED Code Status Onset Date Resolution Date Notes Provider Name and Address Organization Details Recorded Time Umbilical hernia 422702515 Active 2023 Ale Galarza MD Attn: Lloyd huffman,[address], [place], [address], [place] [facility] 4 16:49:20 Systolic murmur 03986522 Active 2023 Ale Galarza MD Attn: Lloyd huffman,[address], [place], [address], [place] [facility] 4 16:49:21 Essential hypertensio n 79418104 Active 2023 Ale Galarza MD Attn: Lloyd huffman,[address] [place], [address], [place] [facility] 4 16:49:23 Serum vitamin B12 below reference range 752768669 Active 2023 Ale Galarza MD Attn: Lloyd huffman,[address] [place], [address], [place] [facility] 4 16:49:25 Prediabetes 729167353 Active 2023 Ale Galarza MD Attn: Lloyd huffman,[address] [facility], [place], [address], [place] [facility] 4 16:49:27 Benign prostatic hyperplasia 996444756 Active 2023 Ale Galarza MD Attn: Lloyd huffman,[address] [place], [address], [place] [facility] 4 16:49:28 Hyperlipide belkis 82269656 Active 2024 Sarai Spence MA null, [place] - [facility] 5 12:18:28 Urinary tract infectious disease 44783256 Active 2024 Sarai Spence [place] null, [place] [facility] 5 12:18:29 Bilateral shoulder joint pain 9161628006124 9104 Active 2024 Sarai Spence [place] null, [place] [facility] 5 12:18:30 Malignant neoplasm of prostate 156325039 Active 2024 Ale Galarza MD Attn: Lloyd huffman,[address] [place], [address], [place] [facility] 5 00:03:58 Problem Notes None recorded. Medical Equipment None Reported. Allergies No known drug allergies Medications Name Sig Start Date Stop Date Status Note LastModified by Organization Details LastModified Time atorvastatin 10 mg tablet TAKE 1 TABLET BY MOUTH EVERY DAY 2024 active Not Available Not Available Not Avai lable lisinopril 20 mg tablet TAKE 1 TABLET BY MOUTH EVERY DAY 2024 active Not Available Not Available Not Avai lable Macrobid 100 mg capsule Take 1 capsule twice a day by oral route for 5 days. 10/15 completed Not Available Not Available Not Available tamsulosin 0.4 mg capsule Take 1 capsule every day by oral route. 02/18 completed Not Available Not Available Not Available Adult Low Dose Aspirin 81 mg [...] Not Available Not Available No t Available Procurement Clerk Express Test Strip Use to test blood sugars twice daily 2024 active Not Available Not Available Not Avai lable Procurement Clerk Express Test Strip USE TO TEST BLOOD SUGARS TWICE DAILY 07/16 completed Not Available Not Available Not Available Xtandi 80 mg tablet Take 1 tablet twice a day by oral route. 2023 active Not Available Not Available Not Avai lable Vitals Date Recorded Body height Body mass index (BMI) Body weight Heart rate Oxygen saturation Oxygen saturation in Arterial blood by Pulse oximetry Systolic And Diastolic Provider Name and Address Organization Details Last Updated DateTime 5 157.48 cm 30.9 kg/m2 91562.4 7 g 62 /min 96 % 96 % 110/72 mm[Hg] Chen [facility] 5 11:38:25 Date Recorded Body weight Body mass index (BMI) Body height Heart rate Oxygen saturation Oxygen saturation in Arterial blood by Pulse oximetry Systolic And Diastolic Provider Name and Address Organization Details Last Updated DateTime 4 44186.6 4 g 33.6 kg/m2 157.48 cm 59 /min 98 % 98 % 126/64 mm[Hg] Juan Alberto Maynard MA [facility] 4 14:50:27 Date Recorded Body height Body mass index (BMI) Body weight Heart rate Oxygen saturation Oxygen saturation in Arterial blood by Pulse oximetry Systolic And Diastolic Provider Name and Address Organization Details Last Updated DateTime 5 157.48 cm 29.9 kg/m2 25688.7 1 g 68 /min 98 % 98 % 132/68 mm[Hg] Cathie LICO Mcclain [facility] 5 14:11:01 Date Recorded Body height Body mass index (BMI) Body weight Heart rate Oxygen saturation Oxygen saturation in Arterial blood by Pulse oximetry Systolic And Diastolic Provider Name and Address Organization Details Last Updated DateTime 4 157.48 cm 34 kg/m2 43846.4 7 g 76 /min 97 % 97 % 142/68 mm[Hg] Estella LICO Ventura [facility] 4 13:56:44 Date Recorded Body height Body mass index (BMI) Body weight Heart rate Oxygen saturation Oxygen saturation in Arterial blood by Pulse oximetry Systolic And Diastolic Provider Name and Address Organization Details Last Updated DateTime 5 157.48 cm 30.4 kg/m2 85686.4 1 g 82 /min 100 % 100 % 108/68 mm[Hg] Chen RamirezLICO [facility] 5 17:05:16 Social History Question Answer Notes LastModified by Organizat ion Details LastModified Time Tobacco Smoking Status Never Smoker Juan Alberto Maynard MA [facility], [facility] 08/12/2023 14:45:57 Do You Have An Advance [...] Date Of Your Most Recent Tobacco Screening? 02/18/2025 Information not available 02/18/2025 What Is Your Relationship Status? Information not [...] 08/12/2023 Are you able to care for yourself independently? Yes Information not available 08/12/2023 What is your exercise level? None Information not available 08/12/2023 Mental Status Question Answer Note LastModified by Organization D etails LastModified Time Do you feel stressed (tense, restless, nervous, or anxious, or unable to sleep at night)? [id number] Information not available 08/12/2023 Family History Nothing Reported. Medical History Condition Response Coronary Artery Disease N Other N High Blood Pressure Y Atrial Fibrillation N Kidney or Bladder Problems Y Thyroid Problems N GI Problems N Depression N COPD N Blood Clots N Skin Problems N Anemia N Heart Attack ([place]) N Anxiety Disorder N Diabetes N Muscle, Joint, or Bone Problems N Seizures/Epilepsy N Acid Reflux (GERD) N Cancer N Stroke N Asthma N Allergies N High Cholesterol N Hepatitis N Liver Disease N Headaches N Heart Failure N Osteoporosis N Past Encounters Encounter ID Performer Location Encounter Start Date Encounter Closed Date Diagnosis/Indication Diagnosis SNOMED-CT Code Diagnosis ICD10 Code Diagnosis IMO Codes Diagnosis Note [id number] Ale Galarza MD [facility] [employer] [facility] [place] [address] [place] [address] 08/12/2023 14:22:26 08/12/2023 15:28:26 Umbilical hernia 733970831 K42.9 Systolic murmur 27345330 R01.1 Essential hypertension 10446444 I10 Serum muriel min B12 below reference range 450798493 R79.89 Prediabetes 336738884 R7 3.03 Benign pro static hyperplasia 363439441 N40.1 [id number] Ale Galarza MD [facility] [employer] [facility] [place] [address] [place] [address] 12/16/2023 13:31:57 12/16/2023 14:37:20 Body mass index 30+ - obesity 390787726 Z68.31 Essential hypertension 85941697 I10 Prediabetes 612856492 R7 3.03 Benign pro static hyperplasia 841463885 N40.1 [id number] Ale Galarza MD [facility] [employer] [facility] [place] [address] [place] [address] 07/16/2024 11:10:41 07/16/2024 12:13:28 Body mass index 30+ - obesity 838362794 Z68.31 Overweight 729310872 E66 .3 Essential hypertension 61126902 I10 Bilateral shoulder joint pain 1334968900 2517514 M25.511 M25.512 Hyperlipidemia 07021782 E78.5 Urinary tr act infectious disease 53052632 N39.0 Prediabetes 569066200 R7 3.03 [id number] Ale Galarza MD [facility] [employer] [facility] [place] [address] [place] [address] 10/15/2024 14:02:02 10/15/2024 14:30:00 Overweight in adulthood with body mass index of 25 or more but less than 30 648840541 E66.3 Z68.29 2206031444 BMI 29.9 Essential hypertension 34063334 I10 Hyperlipidemia 09668208 E78.5 Prediabetes 201484728 R7 3.03 [id number] Ale Galarza MD [facility] [address] [place] [address] [place] [address] 02/18/2025 16:28:09 02/18/2025 17:35:50 Obese class I 9708888208 75227 E66.811 E66.3 4934377640 Health Concerns Section Related Observation LastModified by Organization Detai ls LastModified Time None Recorded Concern Status LastModified by Organization Details LastModified Time None Recorded Advance Directives Directive N: Payers Insurance Date Sequence Insurance Name Policy Number Policy Hassan Covered Member ID Hassan Member ID Guarantor Name 02/18/2025 2 [place] [facility] DE[facility] OF PUBLIC AID Rv Raysa [id number] Rv Raysa 02/18/2025 1 [place] R V Raysa [id number] Rv Raysa 02/18/2025 [place] [facility] [id number] Rv Raysa 02/18/2025 2 [place] [id number] [place] [id number] Rv Raysa Notes Date Note Type Note Provider Name [...] 6 months. They have been down in [place]. He is now back up here for about 6 months before returning to [place]. Has an umbilical hernia that is bothering him a little bit. Ale Galarza MD Attn: [address] [facility], [place], [address], [facility] 08/24/2023 16:50:23 12/16/2023 text/html had his ventral hernia repaired had did develop some postop urinary retention urology did see him everything is okay now Ale Galarza MD Attn: [address] [facility], [place], [address], [facility] 01/05/2024 15:11:02 07/16/2024 text/html Some problems with some urinary frequency diabetes needs to be checked but no polyphagia or polydipsia bilateral shoulder pain that is getting worse no trauma she has been a chronic issue does try to follow a low-fat diet Ale Galarza MD Attn: Accounting[address] [facility], [place], [address], [facility] 07/18/2024 18:14:00 10/15/2024 text/html Hypertension no chest pain or shortness breath. Dyslipidemia he is taking atorvastatin and trying to watch his diet. Prediabetes can do better with sweets low B12 of asymptomatic. Prostate cancer asymptomatic at this time Ale Galarza MD Attn: Accounting,[address] [facility], [place], [address], [facility] 10/16/2024 00:04:44
--- OUTSIDE RECORDS SUMMARY | 2025-02-18 18:19 | XMS_ITS | Encounter Summary ---
Author Organization [facility] Address [address] 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
--- OUTSIDE RECORDS SUMMARY | 2025-02-18 18:19 | XMS_ITS | Data Portability ---
Author Organization [place] [facility], Main Office Address [address] [place] [address] Assessment Encounter Date Assessment Date Assessment LastModified [...] may have to consider an MRI scan. [email or web address] Not available 08/02/2022 13:10:26 08/27/2022 08/27/2022 X-ray ortho [email or web address] Not available 23:00:35 08/30/2022 08/30/2022 Patient returns [...] follow-up and reassess at that point discussed. [email or web address] Not available 08/30/2022 11:35:31 10/04/2022 10/04/2022 Patient [...] needed follow up on an as-needed basis. [email or web address] Not available 10/04/2022 12:12:25 12/03/2022 12/03/2022 Blood work been ordered diagnosis in assessment and plan have been discussed surgical consultation on the hernia follow-up with me when he gets back from [place] [id number] Not available 12/03/2022 12:17:51 Plan of Treatment Reminders Order Date Submit Date Provider Last Modified By Organization Details Last Modified Time Details Appointments None recorded. Lab culture, urine + sensitivity 2022 023 [facility] (Lab), [address] [place], [address], 3 16:36:34 urinalysis, microscopic 2022 023 [facility] (Lab), [address] [place], [address], 3 16:36:40 CMP, serum or plasma 2022 023 [facility] (Lab), [address] [place], [address], 3 13:51:23 CBC w/ auto diff 2022 023 [facility] (Lab), [address] [place], [address], 3 13:33:21 lipid panel, serum 2022 023 [facility] (Lab), [address] [place], [address], 3 13:51:26 HbA1c (hemoglobin A1c), blood 2022 023 [facility] (Lab), [address], [place], [address], 3 16:36:45 Referral None recorded. Procedures injection/a spiration joint/bursa (PROC) - in office procedure, administere d by provider 2022 023 [email or web address] In-Office Order, Internal Use Only DO Not Attach Compendium DO Not Attach Compendium, Do Not Delete/merge, [id number] 3 11:30:18 injection/a spiration joint/bursa (PROC) - in office procedure, administere d by provider 2022 023 [email or web address] In-Office Order, Internal Use Only DO Not Attach Compendium DO Not Attach Compendium, Do Not Delete/merge, 3 13:09:36 Surgeries None recorded. Imaging None recorded. Medication Orders Kenalog 10 mg/mL suspension for injection 2022 023 [id number] [address] [facility], [place], [place], [id number], 3 10:43:38 ropivacaine (PF) 5 mg/mL (0.5 %) injection solution [address] [facility] [address] [facility][id number], [address] [facility], [place], [place], [id number], 3 10:43:48 prednisone 10 mg tablets in a dose pack [address] [facility] [address] [facility][id number], [address] [facility], [place], [place], [id number], 3 10:43:53 prednisone 10 mg tablets in a dose pack 20[address] [facility] [address] [facility][id number], [address], [place], [place], [id number], 3 10:43:53 Kenalog 10 mg/mL suspension for injection 20[address] [facility] [address] [facility] #[id number], [address], [place], [place], [id number], 3 10:43:38 ropivacaine (PF) 5 mg/mL (0.5 %) injection solution [address] [facility] [address] [facility] #[id number], [address], [place], [place], [id number], 10:43:48 Patient TargetsNo targets recorded. Patient InstructionsNo instructions recorded. Reason for Referral None Reported. Results Created Date Observation Date Name Description Value Unit Range Abnormal Flag Note LastModifiedBy Organization Detail LastModifiedTime 07/31/1907/30/2022 URINE MICRO SCOPI C EXAM/ IRIS white blood cells 0-8 /i??h pfi?? 0-8 Not Available [facility] (Lab) [address] [place], [address], 07/30/2022 13:19:14 07/31/1907/30/2022 URINE MICRO SCOPI C EXAM/ IRIS red blood cells 0-4 /i??h pfi?? 0-4 Not Available [facility] (Lab) [address] [place], [address], 07/30/2022 13:19:14 07/31/1907/30/2022 URINE MICRO SCOPI C EXAM/ IRIS bacteria NONE Not Available [facility] (Lab) [address] [place], [address], 07/30/2022 13:19:14 07/31/1907/30/2022 URINE MICRO SCOPI C EXAM/ IRIS mucous OCCASI ONAL /i??l pfi?? abnormal Not Available [facility] (Lab) [address] [place], [address], 07/30/2022 13:19:14 07/31/19 23 07/30/2022 URINE MICRO SCOPI C EXAM/ IRIS squamous epithelial OCCASI ONAL /i??l pfi?? abnormal Not Available [facility] (Lab) [address] [place], [address], 07/30/2022 13:19:14 07/31/19 23 07/30/2022 CBC/C OMPLE TE BLD COUNT W/DIF F white blood cells 7.6 x10'3 /uL 4.2-10 .8 Not Available [facility] (Lab) [address] [place], [address], 07/30/2022 13:37:15 07/31/19 23 07/30/2022 CBC/C OMPLE TE BLD COUNT W/DIF F red blood cells 4.46 x10'6 /uL 4.10-5 .80 Not Available [facility] (Lab) [address] [place], [address], 07/30/2022 13:37:15 07/31/1907/30/2022 CBC/C OMPLE TE BLD COUNT W/DIF F hemoglobin 13.6 g/dL 13.2-1 7.0 Not Available [facility] (Lab) [address] [place], [address], 07/30/2022 13:37:15 07/31/1907/30/2022 CBC/C OMPLE TE BLD COUNT W/DIF F hematocrit 42.9 % 39.3-5 0.0 Not Available [facility] (Lab) [address] [place], [address], 07/30/2022 13:37:15 07/31/19 07/30/2022 CBC/C OMPLE TE BLD COUNT W/DIF F mean red cell volume 96.2 fL 80.0-9 7.0 Not Available [facility] (Lab) [address] [place], [address], 07/30/2022 13:37:15 07/31/19 23 07/30/2022 CBC/C OMPLE TE BLD COUNT W/DIF F mean red cell hemoglobin 30.5 pg 27.0-3 3.0 Not Available [facility] (Lab) [address] [facility] [place], [address], 07/30/2022 13:37:15 07/31/1907/30/2022 CBC/C OMPLE TE BLD COUNT W/DIF F mean RBC HGB concentratio n 31.7 g/dL 31.0-3 6.0 Not Available [facility] (Lab) [address] [place], [address], 07/30/2022 13:37:15 07/31/19 23 07/30/2022 CBC/C OMPLE TE BLD COUNT W/DIF F red cell distribution width 13.9 % 11.8-1 5.5 Not Available [facility] (Lab) [address] [place], [address], 07/30/2022 13:37:15 07/31/1907/30/2022 CBC/C OMPLE TE BLD COUNT W/DIF F platelets 260 x10'3 /uL 150-40 0 Not Available [facility] (Lab) [address] [place], [address], 07/30/2022 13:37:15 07/31/19 23 07/30/2022 CBC/C OMPLE TE BLD COUNT W/DIF F mean platelet volume 9.7 fL 9.0-12 .4 Not Available [facility] (Lab) [address] [place], [address], 07/30/2022 13:37:15 07/31/19 23 07/30/2022 CBC/C OMPLE TE BLD COUNT W/DIF F neutrophils 54.0 % 39.0-7 2.0 Not Available [facility] (Lab) [address] [place], [address], 07/30/2022 13:37:15 07/31/19 23 07/30/2022 CBC/C OMPLE TE BLD COUNT W/DIF F lymphocytes 33.5 % 16.0-4 7.0 Not Available [facility] (Lab) [address] [place], [address], 07/30/2022 13:37:15 07/31/19 23 07/30/2022 CBC/C OMPLE TE BLD COUNT W/DIF F monocytes 8.3 % 5.0-12 .0 Not Available [facility] (Lab) [address] [place], [address], 07/30/2022 13:37:15 07/31/19 23 07/30/2022 CBC/C OMPLE TE BLD COUNT W/DIF F eosinophils 3.4 % 1.0-7. 0 Not Available [facility] (Lab) [address] [place], [address], 07/30/2022 13:37:15 07/31/1907/30/2022 CBC/C OMPLE TE BLD COUNT W/DIF F basophils 0.5 % 0.0-2. 0 Not Available [facility] (Lab) [address] [place], [address], 07/30/2022 13:37:15 07/31/19 23 07/30/2022 CBC/C OMPLE TE BLD COUNT W/DIF F immature granulocytes 0.3 % 0.00-0 .50 Not Available [facility] (Lab) [address] [place], [address], 07/30/2022 13:37:15 07/31/19 23 07/30/2022 CBC/C OMPLE TE BLD COUNT W/DIF F neutrophils, absolute count 4.12 x10'3 /uL 1.5-8. 0 Not Available [facility] (Lab) [address] [place], [address], 07/30/2022 13:37:15 07/31/19 23 07/30/2022 CBC/C OMPLE TE BLD COUNT W/DIF F lymphocytes, absolute count 2.55 x10'3 /uL 1.07-3 .43 Not Available [facility] (Lab) [address] [place], [address], 07/30/2022 13:37:15 07/31/19 23 07/30/2022 CBC/C OMPLE TE BLD COUNT W/DIF F monocytes, absolute count 0.63 x10'3 /uL 0.29-0 .99 Not Available [facility] (Lab) [address] [place], [address], 07/30/2022 13:37:15 07/31/19 23 07/30/2022 CBC/C OMPLE TE BLD COUNT W/DIF F eosinophils, absolute count 0.26 x10'3 /uL 0.02-0 .53 Not Available [facility] (Lab) [address] [place], [address], 07/30/2022 13:37:15 07/31/19 23 07/30/2022 CBC/C OMPLE TE BLD COUNT W/DIF F basophils, absolute count 0.04 x10'3 /uL 0.01-0 .08 Not Available [facility] (Lab) [address] [place], [address], 07/30/2022 13:37:15 07/31/19 23 07/30/2022 CBC/C OMPLE TE BLD COUNT W/DIF F immature granulocytes ,absolute 0.02 x10'3 /uL 0.00-0 .05 Not Available [facility] (Lab) [address] [place], [address], 07/30/2022 13:37:15 07/31/19 23 07/30/2022 CBC/C OMPLE TE BLD COUNT W/DIF F nucleated red blood cells 0.0 % -0 Not Available [facility] (Lab) [address] [place], [address], 07/30/2022 13:37:15 07/31/19 23 07/30/2022 CBC/C OMPLE TE BLD COUNT W/DIF F NRBC# 0.00 x10'3 /uL Not Available [facility] (Lab) [address] [place], [address], 07/30/2022 13:37:15 07/31/19 23 07/30/2022 HEMOG LOBIN A1C HA1C 6.0 % 4.0-6. 0 Diabe mir Scree geovanny Crite chaim: <5.7% Consi stent with absen ce of diabe mir 5.7-6 .4% Consi stent with incre ased risk for diabe mir (pred iabet es) >OR=6 .5% Consi stent with diabe mir REFER ENCE: Diabe mir Care 2016, 39(Guerrero ppl.1 ):s13 -s22 Not Available [facility] (Lab) [address] [place], [address], 07/30/2022 15:17:00 07/31/19 23 07/30/2022 COMPR EHENS LEV METAB OLIC PANEL sodium 137 mmol/ L 137-14 5 Not Available [facility] (Lab) [address] [place], [address], 07/30/2022 15:58:11 07/31/19 23 07/30/2022 COMPR EHENS LEV METAB OLIC PANEL potassium 4.1 mmol/ L 3.5-5. 1 Not Available [facility] (Lab) [address] [place], [address], 07/30/2022 15:58:11 07/31/19 23 07/30/2022 COMPR EHENS LEV METAB OLIC PANEL chloride 100 mmol/ L 98-107 Not Available [facility] (Lab) [address] [facility] [place], [address], 07/30/2022 15:58:11 07/31/19 23 07/30/2022 COMPR EHENS LEV METAB OLIC PANEL carbon dioxide 27 mmol/ L 22-30 Not Available [facility] (Lab) [address] [place], [address], 07/30/2022 15:58:11 07/31/19 23 07/30/2022 COMPR EHENS LEV METAB OLIC PANEL anion gap 14.1 mmol/ L 14-22 Not Available [facility] (Lab) [address] [place], [address], 07/30/2022 15:58:11 07/31/19 23 07/30/2022 COMPR EHENS LEV METAB OLIC PANEL glucose 121 mg/dL 70-99 high Not Available [facility] (Lab) [address] [place], [address], 07/30/2022 15:58:11 07/31/19 23 07/30/2022 COMPR EHENS LEV METAB OLIC PANEL BUN 15 mg/dL 8-19 Not Available [facility] (Lab) [address] [place], [address], 07/30/2022 15:58:11 07/31/19 23 07/30/2022 COMPR EHENS LEV METAB OLIC PANEL creatinine 0.59 mg/dL 0.66-1 .25 low Not Available [facility] (Lab) [address] [place], [address], 07/30/2022 15:58:11 07/31/19 07/30/2022 COMPR EHENS LEV METAB OLIC PANEL GFR >60 Refer ence Range : Wiley Ford ge GFR Healt hy Adult : >60 [...] calcu lator is avail able on the [facility] websi te: https :[email or web address]-ann fleming.hema [email or web address]/harshad olson s/kdo qi/gf r_cal culat or Not Available [facility] (Lab) [address] [place], [address], 07/30/2022 15:58:11 07/31/1907/30/2022 COMPR EHENS LEV METAB OLIC PANEL alkaline phosphatase 42 U/L 38-126 Not Available [facility] (Lab) [address] [place], [address], 07/30/2022 15:58:11 07/31/1907/30/2022 COMPR EHENS LEV METAB OLIC PANEL alanine aminotransfe rase 24 U/L 0-50 Not Available [facility] (Lab) [address] [place], [address], 07/30/2022 15:58:11 07/31/19 23 07/30/2022 COMPR EHENS LEV METAB OLIC PANEL aspartate aminotransfe rase 28 U/L 15-46 Not Available [facility] (Lab) [address] [place], [address], 07/30/2022 15:58:11 07/31/19 23 07/30/2022 COMPR EHENS LEV METAB OLIC PANEL bilirubin, total 0.80 mg/dL 0.20-1 .30 Not Available [facility] (Lab) [address] [place], [address], 07/30/2022 15:58:11 07/31/19 23 07/30/2022 COMPR EHENS LEV METAB OLIC PANEL calcium 9.6 mg/dL 8.4-10 .2 Not Available [facility] (Lab) [address] [place], [address], 07/30/2022 15:58:11 07/31/19 23 07/30/2022 COMPR EHENS LEV METAB OLIC PANEL total protein 7.5 g/dL 6.3-8. 2 Not Available [facility] (Lab) [address] [place], [address], 07/30/2022 15:58:11 07/31/19 23 07/30/2022 COMPR EHENS LEV METAB OLIC PANEL albumin 4.5 g/dL 3.0-4. 4 high Not Available [facility] (Lab) [address] [place], [address], 07/30/2022 15:58:11 07/31/19 23 07/30/2022 COMPR EHENS LEV METAB OLIC PANEL globulin 3.0 g/dL 2.6-4. 2 Not Available [facility] (Lab) [address] [place], [address], 07/30/2022 15:58:11 07/31/19 23 07/30/2022 COMPR EHENS LEV METAB OLIC PANEL A/G ratio 1.5 ratio 1.0-2. 0 Not Available [facility] (Lab) [address] [place], [address], 07/30/2022 15:58:11 12/04/19 23 12/03/2022 CBC/C OMPLE TE BLD COUNT W/DIF F white blood cells 7.6 x10'3 /uL 4.2-10 .8 Not Available [facility] (Lab) [address] [place], [address], 12/03/2022 13:33:21 12/04/19 23 12/03/2022 CBC/C OMPLE TE BLD COUNT W/DIF F red blood cells 4.48 x10'6 /uL 4.10-5 .80 Not Available [facility] (Lab) [address] [place], [address], 12/03/2022 13:33:21 12/04/19 23 12/03/2022 CBC/C OMPLE TE BLD COUNT W/DIF F hemoglobin 13.5 g/dL 13.2-1 7.0 Not Available [facility] (Lab) [address] [place], [address], 12/03/2022 13:33:21 12/04/19 23 12/03/2022 CBC/C OMPLE TE BLD COUNT W/DIF F hematocrit 42.0 % 39.3-5 0.0 Not Available [facility] (Lab) [address] [place], [address], 12/03/2022 13:33:21 12/04/19 23 12/03/2022 CBC/C OMPLE TE BLD COUNT W/DIF F mean red cell volume 93.8 fL 80.0-9 7.0 Not Available [facility] (Lab) [address] [place], [address], 12/03/2022 13:33:21 12/04/19 23 12/03/2022 CBC/C OMPLE TE BLD COUNT W/DIF F mean red cell hemoglobin 30.1 pg 27.0-3 3.0 Not Available [facility] (Lab) [address] [place], [address], 12/03/2022 13:33:21 12/04/19 23 12/03/2022 CBC/C OMPLE TE BLD COUNT W/DIF F mean RBC HGB concentratio n 32.1 g/dL 31.0-3 6.0 Not Available [facility] (Lab) [address] [place], [address], 12/03/2022 13:33:21 12/04/19 23 12/03/2022 CBC/C OMPLE TE BLD COUNT W/DIF F red cell distribution width 13.5 % 11.8-1 5.5 Not Available [facility] (Lab) [address] [place], [address], 12/03/2022 13:33:21 12/04/19 23 12/03/2022 CBC/C OMPLE TE BLD COUNT W/DIF F platelets 260 x10'3 /uL 150-40 0 Not Available [facility] (Lab) [address] [place], [address], 12/03/2022 13:33:21 12/04/19 23 12/03/2022 CBC/C OMPLE TE BLD COUNT W/DIF F mean platelet volume 10.4 fL 9.0-12 .4 Not Available [facility] (Lab) [address] [place], [address], 12/03/2022 13:33:21 12/04/19 23 12/03/2022 CBC/C OMPLE TE BLD COUNT W/DIF F neutrophils 56.8 % 39.0-7 2.0 Not Available [facility] (Lab) [address] [place], [address], 12/03/2022 13:33:21 12/04/19 23 12/03/2022 CBC/C OMPLE TE BLD COUNT W/DIF F lymphocytes 31.2 % 16.0-4 7.0 Not Available [facility] (Lab) [address] [place], [address], 12/03/2022 13:33:21 12/04/19 23 12/03/2022 CBC/C OMPLE TE BLD COUNT W/DIF F monocytes 7.5 % 5.0-12 .0 Not Available [facility] (Lab) [address] [place], [address], 12/03/2022 13:33:21 12/04/19 23 12/03/2022 CBC/C OMPLE TE BLD COUNT W/DIF F eosinophils 3.8 % 1.0-7. 0 Not Available [facility] (Lab) [address] [place], [address], 12/03/2022 13:33:21 12/04/19 23 12/03/2022 CBC/C OMPLE TE BLD COUNT W/DIF F basophils 0.4 % 0.0-2. 0 Not Available [facility] (Lab) [address] [place], [address], 12/03/2022 13:33:21 12/04/19 23 12/03/2022 CBC/C OMPLE TE BLD COUNT W/DIF F immature granulocytes 0.3 % 0.00-0 .50 Not Available [facility] (Lab) [address] [place], [address], 12/03/2022 13:33:21 12/04/19 23 12/03/2022 CBC/C OMPLE TE BLD COUNT W/DIF F neutrophils, absolute count 4.32 x10'3 /uL 1.5-8. 0 Not Available [facility] (Lab) [address] [place], [address], 12/03/2022 13:33:21 12/04/19 23 12/03/2022 CBC/C OMPLE TE BLD COUNT W/DIF F lymphocytes, absolute count 2.37 x10'3 /uL 1.07-3 .43 Not Available [facility] (Lab) [address] [place], [address], 12/03/2022 13:33:21 12/04/19 23 12/03/2022 CBC/C OMPLE TE BLD COUNT W/DIF F monocytes, absolute count 0.57 x10'3 /uL 0.29-0 .99 Not Available [facility] (Lab) [address] [place], [address], 12/03/2022 13:33:21 12/04/19 23 12/03/2022 CBC/C OMPLE TE BLD COUNT W/DIF F eosinophils, absolute count 0.29 x10'3 /uL 0.02-0 .53 Not Available [facility] (Lab) [address] [place], [address], 12/03/2022 13:33:21 12/04/19 23 12/03/2022 CBC/C OMPLE TE BLD COUNT W/DIF F basophils, absolute count 0.03 x10'3 /uL 0.01-0 .08 Not Available [facility] (Lab) [address] [place], [address], 12/03/2022 13:33:21 12/04/19 23 12/03/2022 CBC/C OMPLE TE BLD COUNT W/DIF F immature granulocytes ,absolute 0.02 x10'3 /uL 0.00-0 .05 Not Available [facility] (Lab) [address] [place], [address], 12/03/2022 13:33:21 12/04/19 23 12/03/2022 CBC/C OMPLE TE BLD COUNT W/DIF F nucleated red blood cells 0.0 % -0 Not Available [facility] (Lab) [address] [place], [address], 12/03/2022 13:33:21 12/04/19 23 12/03/2022 CBC/C OMPLE TE BLD COUNT W/DIF F NRBC# 0.00 x10'3 /uL Not Available [facility] (Lab) [address] [place], [address], 12/03/2022 13:33:21 12/04/19 23 12/03/2022 COMPR EHENS LEV METAB OLIC PANEL sodium 137 mmol/ L 137-14 5 Not Available [facility] (Lab) [address] [place], [address], 12/03/2022 13:51:23 12/04/19 23 12/03/2022 COMPR EHENS LEV METAB OLIC PANEL potassium 4.0 mmol/ L 3.5-5. 1 Not Available [facility] (Lab) [address] [place], [address], 12/03/2022 13:51:23 12/04/19 23 12/03/2022 COMPR EHENS LEV METAB OLIC PANEL chloride 102 mmol/ L 98-107 Not Available [facility] (Lab) [address] [place], [address], 12/03/2022 13:51:23 12/04/19 23 12/03/2022 COMPR EHENS LEV METAB OLIC PANEL carbon dioxide 27 mmol/ L 22-30 Not Available [facility] (Lab) [address] [place], [address], 12/03/2022 13:51:23 12/04/19 23 12/03/2022 COMPR EHENS LEV METAB OLIC PANEL anion gap 12.0 mmol/ L 14-22 low Not Available [facility] (Lab) [address] [place], [address], 12/03/2022 13:51:23 12/04/19 23 12/03/2022 COMPR EHENS LEV METAB OLIC PANEL glucose 124 mg/dL 70-99 high Not Available [facility] (Lab) [address] [place], [address], 12/03/2022 13:51:23 12/04/19 23 12/03/2022 COMPR EHENS LEV METAB OLIC PANEL BUN 15 mg/dL 8-19 Not Available [facility] (Lab) [address] [place], [address], 12/03/2022 13:51:23 12/04/19 23 12/03/2022 COMPR EHENS LEV METAB OLIC PANEL creatinine 0.64 mg/dL 0.66-1 .25 low Not Available [facility] (Lab) [address] [place], [address], 12/03/2022 13:51:23 12/04/19 23 12/03/2022 COMPR EHENS LEV METAB OLIC PANEL GFR >60 Refer ence Range : [place] ge GFR Healt hy Adult : >60 [...] calcu lator is avail able on the [facility] websi te: https :[email or web address]-ann fleming.o tony/pr ofess ional s/kdo qi/gf r_cal culat or Not Available [facility] (Lab) [address] [place], [address], 12/03/2022 13:51:23 12/04/19 23 12/03/2022 COMPR EHENS LEV METAB OLIC PANEL alkaline phosphatase 46 U/L 38-126 Not Available [facility] (Lab) [address] [place], [address], 12/03/2022 13:51:23 12/04/19 23 12/03/2022 COMPR EHENS LEV METAB OLIC PANEL alanine aminotransfe rase 22 U/L 0-50 Not Available [facility] (Lab) [address] [place], [address], 12/03/2022 13:51:23 12/04/19 23 12/03/2022 COMPR EHENS LEV METAB OLIC PANEL aspartate aminotransfe rase 21 U/L 15-46 Not Available [facility] (Lab) [address] [place], [address], 12/03/2022 13:51:23 12/04/19 23 12/03/2022 COMPR EHENS LEV METAB OLIC PANEL bilirubin, total 0.80 mg/dL 0.20-1 .30 Not Available [facility] (Lab) [address] [place], [address], 12/03/2022 13:51:23 12/04/19 23 12/03/2022 COMPR EHENS LEV METAB OLIC PANEL calcium 9.6 mg/dL 8.4-10 .2 Not Available [facility] (Lab) [address] [place], [address], 12/03/2022 13:51:23 12/04/19 23 12/03/2022 COMPR EHENS LEV METAB OLIC PANEL total protein 7.0 g/dL 6.3-8. 2 Not Available [facility] (Lab) [address] [place], [address], 12/03/2022 13:51:23 12/04/19 23 12/03/2022 COMPR EHENS LEV METAB OLIC PANEL albumin 4.4 g/dL 3.0-4. 4 Not Available [facility] (Lab) [address] [place], [address], 12/03/2022 13:51:23 12/04/19 23 12/03/2022 COMPR EHENS LEV METAB OLIC PANEL globulin 2.6 g/dL 2.6-4. 2 Not Available [facility] (Lab) [address] [place], [address], 12/03/2022 13:51:23 12/04/19 23 12/03/2022 COMPR EHENS LEV METAB OLIC PANEL A/G ratio 1.7 ratio 1.0-2. 0 Not Available [facility] (Lab) [address] [place], [address], 12/03/2022 13:51:23 12/04/19 23 12/03/2022 LIPID PANEL cholesterol 122 mg/dL 140-19 9 low NIH AJ NSUS RECOM MENDA TION FOR REAL STERO L: ADULT CHILD LOW RISK: <200 <170 BORDE RLINE : <200- 239 ----- HIGH RISK: >240 >200 Not Available [facility] (Lab) [address] [place], [address], 12/03/2022 13:51:26 12/04/19 23 12/03/2022 LIPID PANEL triglyceride s 129 mg/dL 0-150 NIH AJ NSUS REPOR T RECOM MENDA TION FOR TRIGL YCERI ANA LAURA: ADULT CHILD LOW RISK: <150 ----- BODER LINE: 150-1 99 ----- HIGH RISK: >200 ----- Not Available [facility] (Lab) [address] [place], [address], 12/03/2022 13:51:26 12/04/19 23 12/03/2022 LIPID PANEL HDL cholesterol 45 mg/dL 40- Not Available [facility] (Lab) [address] [place], [address], 12/03/2022 13:51:26 12/04/19 23 12/03/2022 LIPID PANEL [...] WILL NOT BE REPOR AMOL. Not Available [facility] (Lab) [address] [place], [address], 12/03/2022 13:51:26 12/04/19 23 12/03/2022 URINE MICRO SCOPI C EXAM/ IRIS white blood cells 0-8 /i??h pfi?? 0-8 Not Available [facility] (Lab) [address] [place], [address], 12/03/2022 14:02:06 12/04/19 23 12/03/2022 URINE MICRO SCOPI C EXAM/ IRIS red blood cells 5-10 /i??h pfi?? 0-4 abnormal Not Available [facility] (Lab) [address] [place], [address], 12/03/2022 14:02:06 12/04/19 23 12/03/2022 URINE MICRO SCOPI C EXAM/ IRIS bacteria NONE Not Available [facility] (Lab) [address] [place], [address], 12/03/2022 14:02:06 12/04/19 23 12/03/2022 URINE MICRO SCOPI C EXAM/ IRIS mucous OCCASI ONAL /i??l pfi?? abnormal Not Available [facility] (Lab) [address] [place], [address], 12/03/2022 14:02:06 12/04/19 23 12/03/2022 URINE MICRO SCOPI C EXAM/ IRIS squamous epithelial OCCASI ONAL /i??l pfi?? abnormal Not Available [facility] (Lab) [address] [place], [address], 12/03/2022 14:02:06 12/04/19 23 12/03/2022 HEMOG LOBIN A1C HA1C 6.1 % 4.0-6. 0 high Diabe mir Scree geovanny Crite chaim: <5.7% Consi stent with absen ce of diabe mir 5.7-6 .4% Consi stent with incre ased risk for diabe mir (pred iabet es) >OR=6 .5% Consi stent with diabe mir REFER ENCE: Diabe mir Care 2016, 39(Guerrero ppl.1 ):s13 -s22 Not Available [facility] (Lab) [address] [place], [address], 12/03/2022 21:43:08 07/31/19 23 07/30/2022 XR, shoul gilda [facility] [address] [place] [address] [phone] Patien t Name: MERCEDES ProseprYADY Access ion #: [id number] Sex: M : 1945 8 Locati on: [facility] Attend ing Physic evan: LOPEZ GALARZA Orderi Physic evan: LOPEZ GALARZA Exam Date: 11:32 AM Exam Name: XR [...] hytes inferi rafal. Page 1 of 2 [facility] Pati t Name: YADY CORADO Access ion #: [id number] Sex: M : 1945 8 Exam [...] 1:19 PM (CT) Page 2 of 2 [email or web address] [facility] (Imaging) [address] [place], [address], 12/04/2022 10:31:04 08/28/19 23 08/27/2022 XR, shoul gilda, 2 or more view 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 There is mild glenoh umeral osteoa rthrit is. IMPRES EZE: Page 1 of 2 [facility] Arnold bishop Name: YADY CORADO Access ion #: [id number] Sex: M : 1945 4 Exam Date: 4:09 PM Exam Name: XR [...] 5:14 PM (CT) Page 2 of [id number] [place] [address] (Imaging) [address] [place], [address], 12/04/2022 10:31:05 09/19/19 24 09/09/2023 US, echoedgard montoya No observ ation record ed. BARCODE Not Available 2023 15:28:16 Result Notes Documentation Provider Name and Address Organization Details Recorded Time Xr, Shoulder, 2 Or More View : [facility] [address] [place] [address] Patient Name: YADY MARTINEZ Sex: M : 1945 Location: [facility] Attending Physician: ALE GALARZA Ordering Physician: ALE GALARZA Exam Date: 08/27/2022 4:09 PM Exam Name: XR SHOULDER LT Admitting Diagnosis(es): RADIOLOGY REPORT - FINAL EXAM: XR SHOULDER LT HISTORY: LT SHOULDER [id number] male with left shoulder pain, no known injury. COMPARISON: None available. TECHNIQUE: Four views of the left shoulder were performed. FINDINGS: No acute fracture or dislocation are identified about the left shoulder. There is acromioclavicular hypertrophy with near complete loss of subacromial space on the external rotation view. There is mild glenohumeral osteoarthritis. IMPRESSION: Page 1 of 2 [facility] Patient Name: YADY MARTINEZ Sex: M : 1945 Exam Date: 08/27/2022 4:09 PM Exam Name: XR SHOULDER LT Admitting Diagnosis(es): 1. No fracture of the left shoulder. 2. Acromioclavicular hypertrophy and loss of subacromial space may be related to rotator cuff tendinopathy and subacromial impingement. Created and electronically signed by: Chaparro Holman MD Signed Date: 08/27/2022 5:14 PM (CT) Dictated by: Chaparro Holman MD (CT) (CT) Page 2 of 2 PRIYANK Lang, [facility] [employer] 12/04/2022 10:31:05 Problems Name Problem SNOMED Code Status Onset Date Resolution Date Notes Provider Name and Address Organization Details Recorded Time Hypertensi ve disorder 74142808 Active Not Available [facility] 3 09:51:01 Umbilical hernia 801046886 Active Not Available [facility] 3 09:51:01 Diabetes mellitus 69906477 Active Not Available [facility] 3 09:51:01 Dyslipidem ia 188480965 Active 2018 Not Available [facility] 3 09:51:01 Pain of right shoulder joint 1639878751390 9100 Active 2022 Not Available [facility] 3 09:51:01 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 6198893009292 00 Active 2022 Not Available [facility] 3 09:51:01 Tendinitis of right rotator cuff 5979107343874 9104 Active 2022 Not Available [facility] 3 09:51:01 Pain of shoulder region 43224245 Active 2022 Not Available [facility] 3 09:51:01 Pain of left shoulder joint 5023755302002 9109 Active 2022 Not Available [facility] 3 09:51:01 Tendinitis of left rotator cuff 5274347215176 9101 Active 2022 Not Available [facility] 3 09:51:01 Dysuria 06644818 Active 2022 Not Available [facility] 3 09:51:01 Problem Notes None recorded. Procedures Surgical History Date Name Laterality Status Provider Name and Address Organization Details Recorded Time 08/31/19 23 Ortho - Cortisone Injection completed Chaitanya Maynard MD [address] [facility], [place], [address], [facility] [employer] 08/30/2022 11:34:44 08/03/19 23 Ortho - Cortisone Injection completed Chaitanya Maynard MD [address], [place], [address], [facility] 08/02/2022 13:09:18 Prostatectomy completed Not Available [facility] 06/06/2022 04:43:13 Imaging Results None recorded. Procedure Notes None recorded. Medical Equipment None [...] 20 mg by injection route. 12/03 completed [facility]: 0003- [phone]- 20 Not Available Not Available [...] 20 mg by injection route. 12/03 completed [facility] [phone] -[phone] Not Available Not Available Not Available Vitals Date Recorded Body height Body mass index (BMI) Body weight Provider Name and Address Organization Details Last Updated DateTime 08/02/2022 165.1 cm 33.3 kg/m2 17044.47 g Cami Bonds ATC L [facility] [employer] [facility] 08/02/2022 12:58:31 Date Recorded Body height Body mass index (BMI) Body weight Body temperature Heart rate Systolic And Diastolic Provider Name and Address Organization Details Last Updated DateTime 165.1 cm 33.4 kg/m2 78055.0 7 g 97.3 [degF] 57 /min 130/70 mm[Hg] PRIYANK Lang [facility] [employer] [facility] 16:20:22 Date Recorded Body height Body mass index (BMI) Body weight Provider Name and Address Organization Details Last Updated DateTime 08/30/2022 165.1 cm 33.6 kg/m2 51614.66 g Adrienne Salguero [facility] [employer] [facility] 08/30/2022 11:10:09 Date Recorded Body height Body mass index (BMI) Body weight Provider Name and Address Organization Details Last Updated DateTime 10/04/2022 165.1 cm 33.6 kg/m2 89647.66 g Lola Bull CNA [facility] [employer] [facility] 10/04/2022 11:23:12 Date Recorded Body height Body mass index (BMI) Body weight Body temperature Heart rate Systolic And Diastolic Provider Name and Address Organization Details Last Updated DateTime 165.1 cm 33.3 kg/m2 86879.4 7 g 98.1 [degF] 62 /min 120/76 mm[Hg] Summer alamo, RN [facility] [employer] [facility] 10:49:43 Social History Question Answer Notes LastModified by Organization Details LastModified Time Tobacco Smoking Status Never Smoker Not Available [facility] 06/06/2022 04:42:06 Do You Have An Advance Directive? No MIGRATION.030 519105 Information not available 06/06/2022 Are You Blind Or Do You Have Difficulty Seeing? No MIGRATION.030 741214 Information not available 06/06/2022 What Is Your Level Of Caffeine Consumption? Occasional MIGRATION.0301 546684 Information not available 06/06/2022 How Much Tobacco Do You Chew? None MIGRATION.030 433461 Information not available 06/06/2022 In The 14 Days Before Symptom Onset, Have You Had Close Contact With A Laboratory-confi rmed COVID-19 While That Case Was Ill? No MIGRATION.030 330115 Information not available 06/06/2022 In The 14 Days Before Symptom Onset, Have You Had Close Contact With A Person Who Is Under Investigation For COVID-19 While That Person Was Ill? No MIGRATION.030 433480 Information not available 06/06/2022 Are You Deaf Or Do You Have Serious Difficulty Hearing? Yes Wears Hearing Aids MIGRATION.030 918399 Information not available 06/06/2022 What Type Of Diet Are You Following? REGULAR MIGRATION.030 602131 Information not available 06/06/2022 What Is The Highest Grade Or Level Of School You Have Completed Or The Highest Degree You Have Received? ED79898-4 MIGRATION.030 778041 Information not available 06/06/2022 Have There Been Any Changes To Your Family Or Social Situation? No MIGRATION.030 617437 Information not available 06/06/2022 What Is The Fluoride Status Of Your Home? Unknown MIGRATION.030 941766 Information not available 06/06/2022 Are There Any Guns Present In Your Home? No MIGRATION.030 842428 Information not available 06/06/2022 Do You Use Insect Repellent Routinely? No MIGRATION.0301 597697 Information not available 06/06/2022 Where Do You Live? SingleLevelHouse MIGRATION.030 966264 Information not available 06/06/2022 Do You Have A Medical Power Of Market Analysis Director? No MIGRATION.0301 310718 Information not available 06/06/2022 What Was The Date Of Your Most Recent Tobacco Screening? 12/03/2022 [email or web address] Information not available 12/03/2022 Have You Ever Been Counseled For Unhealthy Alcohol Use? No MIGRATION.0301 107313 Information not available 06/06/2022 Do You Have Any Pets? No MIGRATION.0301 641486 Information not available 06/06/2022 What Is Your Relationship Status? MIGRATION.0301 832660 Information not available 06/06/2022 Do You Use Your Seat Belt Or Car Seat Routinely? Yes MIGRATION.0301 058940 Information not available 06/06/2022 Do You Have Smoke And Carbon Monoxide Detectors In Your Home? Yes MIGRATION.0301 012523 Information not available 06/06/2022 Are You Passively Exposed To Smoke? No MIGRATION.0301 902432 Information not available 06/06/2022 Are There Any Smokers In Your House? No MIGRATION.0301 813058 Information not available 06/06/2022 How Much Tobacco Do You Smoke? No MIGRATION.0301 389130 Information not available 06/06/2022 What Types Of Sporting Activities Do You Participate In? None MIGRATION.0301 336663 Information not available 06/06/2022 Do You Use Sunscreen Routinely? Yes MIGRATION.0301 857535 Information not available 06/06/2022 Has Tobacco Cessation Counseling Been Provided? No Not Needed-nev er Smoked MIGRATION.0301 296682 Information not available 06/06/2022 How Many Years Have You Smoked Tobacco? 20 Information not available 08/02/2022 Have You Recently Traveled Abroad? No MIGRATION.0301 162407 Information not available 06/06/2022 Do You Have Difficulty Walking Or Climbing Stairs? No MIGRATION.0301 922600 Information not available 06/06/2022 Do You Have Any Dietary Restrictions? No MIGRATION.0301 476158 Information not available 06/06/2022 Sex: Male Functional Status Question Answer Note LastModified by Organizat ion Details LastModified Time Do you use any illicit or recreational drugs? No MIGRATION.472714 7020 Information not available 06/06/2022 Do you or have you ever used any other forms of tobacco or nicotine? Yes Information not available 08/02/2022 What is your level of alcohol consumption? Moderate MIGRATION.081019 0144 Information not available 06/06/2022 Do you or have you ever used smokeless tobacco? Never used smokeless tobacco MIGRATION.582735 2470 Information not available 06/06/2022 Do you have transportation difficulties? No MIGRATION.045989 0394 Information not available 06/06/2022 Are you able to walk independently without assistance or assistive devices? YESWOREST MIGRATION.011915 2002 Information not available 06/06/2022 Do you have difficulty doing errands alone? No MIGRATION.261918 8039 Information not available 06/06/2022 Are you able to care for yourself independently? Yes MIGRATION.532466 6186 Information not available 06/06/2022 What is your occupation? retired MIGRATION.011645 4846 Information not available 06/06/2022 Do you have difficulty dressing, bathing, grooming, or toileting? No MIGRATION.601699 5294 Information not available 06/06/2022 Do you or have you ever used e-cigarettes or vape? Never used electronic cigarettes MIGRATION.221059 0010 Information not available 06/06/2022 What is your exercise level? Occasional MIGRATION.029352 0336 Information not available 06/06/2022 Mental Status Question Answer Note LastModified by Organizat ion Details LastModified Time Do you feel stressed (tense, restless, nervous, or anxious, or unable to sleep at night)? NB1906-7 MIGRATION.77887492 26 Information not available 06/06/2022 Do you have difficulty concentrating, remembering or making decisions? No MIGRATION.69433742 26 Information not available 06/06/2022 Family History Relationship Description Onset Age of this Age Resolved Age Notes LastModified by Organization Details LastModified Time Mother Heart disease MIGRATION.571 3622773 Not available 06/06/2022 04:43:22 Mother Disorder of intestine MIGRATION.076 7779601 Not available 06/06/2022 04:43:22 Father Heart disease MIGRATION.306 7445920 Not available 06/06/2022 04:43:22 Medical History Condition Response NERVE DISEASE N BLINDNESS N RHEUMATIC FEVER N KIDNEY STONES N BLADDER PROBLEMS N MRSA N OTHER # 1 N POLIO N LUNG DISEASE/DISORDER N COPD N RADIATION / CHEMOTHERAPY N Other # 2 N BLOOD DISEASES [...] N EDEMA N CHRONIC PAIN SYNDROME N CONSTIPATION N CAROTID BLOCKAGE N BACK / NECK PROBLEMS N HAVE YOU BEEN HOSPITALIZED OR SEEN IN [facility] ER IN THE PAST YEAR ? N ATHEROSCLEROSIS N BREAST PROBLEMS N DIALYSIS N ECZEMA N OSTEOPOROSIS N ARTHRITIS N Do you have a healthcare POA? N APPENDICITIS N DIABETES, TYPE Y BAD TEETH N ENT N HEARTBURN / REFLUX N AFIB N AUTISM SPECTRUM DISORDER (ASD) N HEPATITIS / LIVER DISEASE N GOUT N SLEEP DISORDER N ALZHEIMER'S DISEASE N Brain Problems N HERPES N DEMENTIA N SEIZURES/EPILEPSY N HEADACHES/MIGRAINES N VASCULAR DISEASE N PACEMAKER N Blood Disorder N DIZZINESS N KIDNEY DISEASE N HEART DISEASE/HEART PROBLEMS N MULTIPLE SCLEROSIS N CARDIAC ARRHYTHMIA N CANCER: SPECIFY Y Gall Stones N ATRIAL FIBRILLATION N PULMONARY EMBOLISM N AUTOIMMUNE DISEASE N Immunizations Vaccine Type Date Status Note Provider Nam e and Address Organization Details Recorded Time COVID-19, mRNA, LNP-S, PF, 30 mcg/0.3 mL dose 09/07/2020 completed Not Available [facility] 3 09:51:01 COVID-19, mRNA, LNP-S, PF, 30 mcg/0.3 mL dose 08/16/2020 completed Not Available [facility] 3 09:51:01 Past Encounters Encounter ID Performer Location Encounter Start Date Encounter Closed Date Diagnosis/Indication Diagnosis SNOMED-CT Code Diagnosis ICD10 Code Diagnosis IMO Codes Diagnosis Note [id number] Ale Galarza MD [facility] [place] [address] [facility] [address] [facility] [place] [address] 08/04/2020 00:00:00 08/06/2020 15:18:58 [id number] Ale Galarza MD [facility] Internal Med [place] [address] [facility] , [facility] [place] [address] 12/08/2020 00:00:00 12/08/2020 22:39:54 [id number] Ale Galarza MD [facility] Internal Med [place] [address] [address] 08/07/2021 00:00:00 08/28/2021 21:25:19 [id number] Ale Galarza MD [facility] Internal Med [place] [address] [address] 12/18/2021 00:00:00 12/23/2021 14:23:53 [id number] Ale Galarza MD [facility] Internal Med [place] [address] [address] 07/30/2022 11:02:39 07/30/2022 12:01:48 Hypertensive disorder 28312701 I10 Diabetes mellitus 548960 09 E11.9 Pain of ri ght shoulder joint 8700422002 8673723 M25.511 Dyslipidemia 859338531 E 78.5 Umbilical hernia 2987791 07 K42.9 [id number] Chaitanya Maynard MD [facility] [place] [place] [address] [place] [address] 08/02/2022 12:43:02 08/02/2022 13:58:03 Pain of right shoulder joint 6393797602 9668971 M25.511 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 0397700620 22673 M19.011 Tendinitis of right rotator cuff 0662143559 8495531 M67.813 [id number] Ale Galarza MD [facility] [place] [address] [facility] [address] 08/27/2022 15:37:31 08/27/2022 16:45:06 Pain of left shoulder joint 9538709276 3479677 M25.512 [id number] Chaitanya Maynard MD [facility] [place] [address] [place] [address] 08/30/2022 11:07:42 08/30/2022 11:42:53 Pain of right shoulder joint 1036736707 8629199 M25.511 Tendinitis of right rotator cuff 9713578497 1183049 M67.813 Pain of le ft shoulder joint 0892974946 6075191 M25.512 Tendinitis of left rotator cuff 3786801074 2900220 M67.814 [id number] Chaitanya Maynard MD [facility] [place] [address] [place] [address] 10/04/2022 11:14:36 10/04/2022 12:19:10 Tendinitis of right rotator cuff 9533452168 0235954 M67.813 Tendinitis of left rotator cuff 4363937312 7835555 M67.814 [id number] Ale Galarza MD [facility] Internal Med [place] [address] [facility] [place] [address] 12/03/2022 10:33:56 12/03/2022 11:22:41 Diabetes mellitus 84869783 E11.9 Hypertensive disorder 38 630619 I10 Dysuria 76875274 R30.0 Health Concerns Section Related Observation LastModified by Organization Detai ls LastModified Time None Recorded Concern Status LastModified by Organization Details LastModified Time None Recorded Advance Directives Directive N: Payers Insurance Date Sequence Insurance Name Policy Number Policy Hassan Covered Member ID Hassan Member ID Guarantor Name 08/02/2023 1 [place] Asha Martinez [id number] Asha.Kimberli Martinez 08/02/2023 2 [place] [id number] Asha Martinez [id number] Mckinley Martinez Notes Date Note Type Note Provider Name [...] of motion as well. Chaitanya Maynard MD [address], [place], [address], [employer] 08/02/2022 13:11:03 08/27/2022 text/html reaching for something on the cabinet the other day and he has had left shoulder pain ever since no neck problems no numbness or tingling hard to raise his arm up above his head without pain Ale Galarza MD [address], [place], [address], [employer] 08/27/2022 23:02:21 08/30/2022 text/html Patient returns shoulder pain left. The right shoulder pain has responded well to conservative treatment. I gave him a shot and some anti-inflammatory medication and he has done well. He still hurts but not so bad now he strained his left shoulder and has pain pain is localized most of the joint itself. Chaitanya Maynard MD [address], [place], [address], [employer] 08/30/2022 11:36:13 10/04/2022 text/html Patient returns shoulder pain bilaterally. He has had injections in both shoulders that seemingly is alleviated a fair bit of pain he remains symptomatic particularly with overhead motion but is willing to live with that for the present time. Chaitanya Maynard MD [address], [place], [address], [employer] [facility] [employer] 10/04/2022 12:12:57 12/03/2022 text/html Diabetes not taking sugar but no polyphagia or polydipsiaPain in right shoulder seeing OrthoDyslipidemia does try to watch diet but needs to have blood workHypertension no headache no dizzinessUmbilical hernia a little large Ale Galarza MD [address], [place], [address], [employer] 12/03/2022 12:18:07
[2025-02-18] MEDS: HYDROcodone/acetaminophen (*CRX) 5-325 MG TABLET 1 TAB PO (21:15)
[2025-02-18 22:05] LABS: Hematocrit 33.2 % (42.0-52.0); Hemoglobin 10.6 g/dL (14.0-18.0); Immature Granulocyte Percent A 0.6 % (0-0.5); Lymphocytes Absolute Auto 1.66 K/mm3 (0.9-3.2); Mean Corpuscular HGB Conc 31.9 g/dl (32-36); Mean Corpuscular Hemoglobin 30.3 pg (26-34); Mean Corpuscular Volume 94.9 fl (80-100); Nucleated Red Blood Cells Absolute Auto 0.000 K/mm3 (0.0-0.012); Nucleated Red Blood Cells Perc 0.0 % (0.0-0.2); Platelet Count Result 268 k/mm3 (150-375); Red Blood Count 3.50 M/mm3 (4.6-6.20); White Blood Count 11.9 K/mm3 (4.5-10.0)
[2025-02-18 22:08] LABS: Add Urine Microscopic? YES; Appearance Urine Cloudy (Clear); Glucose Urine UA Negative (Negative); Leukocyte Esterase Ur Negative LEU/UL (Negative); Need Manual Microscopic Reviewed; Nitrate Urine Negative (Negative); Non Pathogenic Casts >20; Specific Grav Ur 1.022 (1.001-1.035)
[2025-02-18 22:15] LABS: Alanine Aminotransferase 18 U/L (6-50); Albumin Level 4.3 g/dL (3.5-5.1); Alkaline Phosphatase 76 U/L (38-126); Anion Gap 11 mmol/L (4-12); Aspartate Amino Transferase 37 U/L (17-59); Bilirubin,Total 1.1 mg/dL (0.2-1.3); Blood Urea Nitrogen 48 mg/dL (9-20); Calcium 9.8 mg/dL (8.4-10.2); Carbon Dioxide 24 mmol/L (22-30); Chloride 108 mmol/L (98-107); Estimated CRCL calculation 39 ml/min; Estimated Glomerular Filt Rate 57; Glucose 111 mg/dL (65-110); Potassium 3.9 mmol/L (3.4-5.0); Sodium 143 mmol/L (137-145); Total Protein 7.5 g/dL (6.3-8.2)
[2025-02-18] MEDS: IBUPROFEN 400 MG TABLET PO (22:43)
[2025-02-18] MEDS: SODIUM CHLORIDE 0.9% IV 500 ML 999 ML IV CONT (22:43)
--- NOTE | 2025-02-19 00:28 | WPCEDHO ---
ED Hand Off Checklist All vitals saved:Y IV Site documented:Y All med administrations documented:Y Triage Note Triage Note patient in wc and does not use 02/18/25 21:04 upper body well, slipped out of bed and Tues fell from standing position, got tangled up and hit his head. patient denies LOC, denies any thinners besides ASA. agree with triage note Allergies No Known Allergies Allergy (Verified 02/18/25 17:29) Family History (Last Reviewed 10/01/24 @ 11:45 by Tessy Leija [facility]) Father Heart disease Other Hypertension Administered/Completed Medications Discontinued Medications Hydrocodone Bitart/Acetaminophen (Hydrocodone/Acetaminophen (*Crx) 5-325 Mg Tablet) 1 tab PO ONCE STA Stop: 02/18/25 21:10 Last Admin: 02/18/25 21:15 Dose: 1 tab Documented By: MARIBEL Sodium Chloride (Normal Saline Iv) 500 mls @ 999 mls/hr IV CONT .Q31M STA Stop: 02/18/25 22:55 Last Infusion: 02/18/25 23:52 Dose: Infused Documented By: Admin: 02/18/25 22:43 Dose: 999 mls/hr Documented By: MARIBEL Ibuprofen (Ibuprofen 400 Mg Tablet) 400 mg PO ONCE STA Stop: 02/18/25 22:33 Last Admin: 02/18/25 22:43 Dose: 400 mg Documented By: MARIBEL Interventions/Assessments IV / Saline Lock, Insert Start: 02/18/25 22:43 Freq: Status: Active Protocol: Document 02/18/25 22:43 MARIBEL (Rec: 02/18/25 22:43 MARIBEL [id number]) IV Assessment Peripheral Access Left Antecubital IV Catheter Access Initiated IV Insertion Date 02/18/25 IV Insertion Time 22:43 Catheter Gauge 20 IV Insertion 1 Attempts Ultrasound Used for No Placement IV Site Assessment WNL IV Care and WNL Maintenance Last Vital Signs Temperature 99.1 F 02/18/25 17:22 Pulse Rate 75 02/18/25 22:55 Respiratory Rate 18 02/18/25 23:46 Pulse Oximetry 99 02/18/25 23:46 Blood Pressure 130/67 02/18/25 23:46 Blood Pressure Mean 85 02/18/25 23:46 Oxygen Delivery Room Air 02/18/25 21:04 Weight 75.3 kg 02/18/25 21:04 Last Result - Abnormals Only WBC 11.9 K/mm3 (4.5-10.0) H 02/18/25 21:49 RBC 3.50 M/mm3 (4.6-6.20) L 02/18/25 21:49 Hgb 10.6 g/dL (14.0-18.0) L 02/18/25 21:49 Hct 33.2 % (42.0-52.0) L 02/18/25 21:49 MCHC 31.9 g/dl (32-36) L 02/18/25 21:49 Immature Gran % (Auto) 0.6 % (0-0.5) H 02/18/25 21:49 Neut % (Auto) 75.3 % (45.5-73.1) H 02/18/25 21:49 Lymph % (Auto) 13.9 % (18.3-44.2) L 02/18/25 21:49 [place] % (Auto) 9.6 % (2.6-8.5) H 02/18/25 21:49 [place] # (Auto) 1.2 K/mm3 (0.1-0.6) H 02/18/25 21:49 Abs Immat Gran (auto) 0.07 K/mm3 (0.00-0.031) H 02/18/25 21:49 Absolute Neuts (auto) 9.0 K/mm3 (1.3-6.7) H 02/18/25 21:49 Chloride 108 mmol/L (98-107) H 02/18/25 21:49 BUN 48 mg/dL (9-20) H 02/18/25 21:49 Estimated GFR 57 (59-) L 02/18/25 21:49 Glucose 111 mg/dL (65-110) H 02/18/25 21:49 Urine Appearance Cloudy (Clear) H 02/18/25 21:39 Urine Protein 1+ mg/dL (Negative) H 02/18/25 21:39 Urine Ketones Trace mg/dL (Negative) H 02/18/25 21:39 Most Recent Suicide Severity Rating Suicide Severity Rating NO RISK INDICATED 02/18/25 21:04
[2025-02-19 01:05] VITALS: BP 160/66; PULSE 82; RESP 18; TEMP 36.6; O2SAT 100
[2025-02-19] MEDS: HYDROcodone/acetaminophen (*CRX) 5-325 MG TABLET 1 TAB PO ×3 (01:26→18:18)
[2025-02-19 01:28] VITALS: BMI 29.4
--- NOTE | 2025-02-19 01:30 | ADMGEN ---
This patient, Asha Tabares, was admitted to Medical Room 257-01. Patient/family oriented to hospital policies and general routines including ID bracelet, bed and alarms, visiting hours, pain management, procedures, bathroom and other care routines, personal items, smoking policy, room service/diet, and visiting hours. Information on how to activate the Rapid Response Team has been discussed. Patient/Family are encouraged to report perceived risks to care and to ask questions if they do not understand what they are told or what they should do.
--- NOTE | 2025-02-19 02:04 | PC.NURSE ---
PT FORGETFUL AND UNCERTAIN ABOUT HOME MEDICATIONS. PT ALSO GIVING A [facility] HISTORY FREQUENTLY ANSWERING WITH I DONT THINK SO. CALLED PT SON TO COMPLETE PAST MEDICAL HISTORY AND HOME MEDICATIONS. NO ANSWER, MESSAGE LEFT WITH SON JOHN.
[2025-02-19 04:43] VITALS: BP 121/48; PULSE 70; RESP 16; TEMP 36.8; O2SAT 98
--- NOTE | 2025-02-19 05:07 | PC.NURSE ---
SON JOHN CALLED BACK TO CONFIRM PT MEDICATION LIST. MEDICATION REC COMPLETED
--- NOTE | 2025-02-19 06:00 | PM.IMHP ---
H&P: HPI History of Present Illness Date/Time: 02/19/25 06:00 Chief Complaint: 2 ground level falls Narrative: 79-year-old male presents to [facility] ER on 02/18/2025 after 2 falls. He fell over a cord a few days prior and hit his head, on day of admission he fell while trying to get out of bed. Reports right shoulder pain. No loss of consciousness. No seizure. No urinary/stool incontinence. Right shoulder x-ray showing comminuted displaced fracture of the right proximal humerus extending into the humeral neck. Head CT and cervical spine CT without acute fracture or findings. Orthopedic surgeon recommended shoulder immobilizer and discharged home with follow-up in the office. The patient's son report he cannot take care of himself at home as he cannot lift himself up. Review of Systems Review of Systems: All systems reviewed & are unremarkable except as noted in HPI and below (Subjective) PMFSH Past Medical History Medical History BPH (benign prostatic hyperplasia) Diabetes Surgical History Surgical History History of ventral hernia repair Robotic assisted laparoscopic extended total extraperitoneal incarcerated ventral hernia repair with Synecor mesh ( [id number] ). 11/06/23 History of prostatectomy Family History Family History Father Heart disease Other Hypertension Social History Social History Smoking packs per day: 1.0 Smoking cigarettes per day: 20.0 Years smoked: 25 Smoking pack-years: 25.00 Smoking status: Former smoker Tobacco type: cigarettes Smoking end date: 04/08/03 Alcohol intake: never Substance use: never Substance use type: does not use Last use: 11/26/83 Lack of Transportation: No Lack of Food: Never True Current Housing: I Have Housing Concerned About Future Housing: No Difficulty Paying Gas/Electric Bills: YES Difficulty Paying for Meds: YES Currently Unemployed: No Education: High School Diploma/GED Difficulty w/ Childcare or Family Care: No Living arrangements: alone Spiritual care concerns: No Meds Home Medications and Allergies Home Medications ?Medication ?Instructions ?Recorded ?Confirmed ?Type aspirin 81 mg tablet,delayed 81 mg PO DAILY 09/11/23 02/19/25 History release cholecalciferol (vitamin D3) 50 50 mcg PO DAILY 09/11/23 02/19/25 History mcg (2,000 unit) capsule docosahexaenoic acid (dha)-epa 120 1 cap PO DAILY 09/11/23 02/19/25 History mg-180 mg capsule (Fish Oil) lisinopril 20 mg tablet 20 mg PO DAILY 09/11/23 02/19/25 History mecobalamin (vitamin B12) 1,000 1,000 mcg PO DAILY 09/11/23 02/19/25 History mcg lozenges tamsulosin 0.4 mg capsule 0.4 mg PO DAILY 09/11/23 02/19/25 History atorvastatin 10 mg tablet (Lipitor) 10 mg PO DAILY 02/19/25 02/19/25 History enzalutamide 80 mg tablet (Xtandi) 160 mg PO DAILY 02/19/25 02/19/25 History ibuprofen 200 mg capsule 400 mg PO BID PRN pain 02/19/25 02/19/25 History Allergies Allergy/AdvReac Type Severity Reaction Status Date / Time No Known Allergies Allergy Verified 02/19/25 01:28 Vital Signs Vital Signs - 24 hr 02/18/25 17:22 02/18/25 21:04 02/18/25 21:18 Temperature 99.1 F Pulse Rate 83 74 75 Respiratory Rate 20 15 16 Blood Pressure 114/54 L 125/74 123/51 L Pulse Oximetry 99 100 99 Oxygen Delivery Room Air Room Air 02/18/25 22:52 02/18/25 22:55 02/18/25 23:00 Temperature Pulse Rate 75 Respiratory Rate 16 Blood Pressure 137/65 Pulse Oximetry 100 100 99 Oxygen Delivery 02/18/25 23:15 02/18/25 23:28 02/18/25 23:30 Temperature Pulse Rate Respiratory Rate 18 Blood Pressure 121/63 Pulse Oximetry 98 98 99 Oxygen Delivery 02/18/25 23:31 02/18/25 23:45 02/18/25 23:46 Temperature Pulse Rate Respiratory Rate 18 18 Blood Pressure 119/74 130/67 Pulse Oximetry 100 99 99 Oxygen Delivery 02/19/25 01:05 02/19/25 04:43 Temperature 97.8 F 98.3 F Pulse Rate 82 70 Respiratory Rate 18 16 Blood Pressure 160/66 H 121/48 L Pulse Oximetry 100 98 Oxygen Delivery Exam Const: General: comfortable and no acute distress HENMT: Mouth: Yes moist mucous membranes Eyes: Pupils: Equal, round and reactive pupils present Neck: Neck: supple Resp: Effort & Inspection: normal respiratory effort Auscultation: clear to auscultation bilaterally Cardio: Rate: regular rate Rhythm: regular rhythm GI: GI Palp: Yes Soft to palpation Neuro: Other: Right upper extremity range of motion limited by pain. Neurovascular exam intact. H&P: Results Labs Labs: Short CBC 02/18/25 Range/Units 21:49 WBC 11.9 H (4.5-10.0) K/mm3 Hgb 10.6 L (14.0-18.0) g/dL Hct 33.2 L (42.0-52.0) % Plt Count 268 (150-375) k/mm3 BMP 02/18/25 21:49 Sodium 143 Potassium 3.9 Chloride 108 H Carbon Dioxide 24 BUN 48 H Creatinine 1.22 Glucose 111 H Calcium 9.8 Liver Function 02/18/25 Range/Units 21:49 Total Bilirubin 1.1 (0.2-1.3) mg/dL AST 37 (17-59) U/L ALT 18 (6-50) U/L Alkaline Phosphatase 76 (38-126) U/L Albumin 4.3 (3.5-5.1) g/dL Urine 02/18/25 Range/Units 21:39 Urine Color Yellow (Yellow) Urine Appearance Cloudy H (Clear) Urine pH 5.0 (5.0-9.0) Ur Specific [place] 1.022 (1.001-1.035) Urine Protein 1+ H (Negative) mg/dL Urine Glucose (UA) Negative (Negative) mg/dL Assessment and Plan Assessment and plan (1) Closed right humeral fracture: Code(s): S42.301A - Unspecified fracture of shaft of humerus, right arm, initial encounter for closed fracture Status: Acute Plan NPO. Orthopedic surgery to see. Paty Mcfarlane p.r.n.. PT/OT. Fall precautions, ambulate with assistance. SCDs. Full code. Hospitalist MIPS Advance Care Plan I have confirmed that the patient's Advanced Care Plan is present, code status is documented, or surrogate decision maker is listed in patient medical record.: Yes Medication Reconciliation I have utilized all available resources to obtain, update and review the patients current medications (includes all prescriptions, OTC, herbals, cannabis, and nutritional supplements).: Yes
--- NOTE | 2025-02-19 08:14 | P.PNIM_ITS ---
Progress Note: A&P Assessment and Plan (1) Closed right humeral fracture: Code(s): S42.301A - Unspecified fracture of shaft of humerus, right arm, initial encounter for closed fracture Status: Acute Assessment and Plan: - XR R shoulder with comminuted displaced fracture of the proximal humerus extending into the humeral neck -Orthopedic surgeon recommended shoulder immobilizer and discharged home with follow-up in the office. The patient's son report he cannot take care of himself at home as he cannot lift himself up. - PT/OT. Fall precautions, ambulate with assistance. - continue pain control (2) BPH (benign prostatic hyperplasia): Code(s): N40.0 - Benign prostatic hyperplasia without lower urinary tract symptoms Status: Acute Assessment and Plan: - continue home Flomax - monitor urine output (3) Hypertension: Code(s): I10 - Essential (primary) hypertension Status: Acute Assessment and Plan: - continue home lisinopril Plan DVT prophylaxis: Lovenox Code status: full code Dispo: SNF Subjective Date/time seen: 02/19/25 08:14 Interval history: Patient seen and examined at bedside. Complaining of mild R arm pain. Agreeable to SNF placement. Exam Narrative: General: NAD Eyes: EOMI ENT: neck supple Cardiovascular: Regular rate and rhythm, radial pulses 2+ Respiratory: Clear to auscultation, respirations even and unlabored on RA Gastrointestinal: Soft, non tender Genitourinary: no suprapubic tenderness Musculoskeletal: RUE swelling/bruising Skin: warm, dry Neuro: Alert. Sensation intact RUE. Psych: Mood appropriate Objective Data Vital Signs Vital Signs: Vital Signs - 24 hr 02/18/25 17:22 02/18/25 21:04 02/18/25 21:18 Temperature 99.1 F Pulse Rate 83 74 75 Respiratory Rate 20 15 16 Blood Pressure 114/54 L 125/74 123/51 L Pulse Oximetry 99 100 99 Oxygen Delivery Room Air Room Air 02/18/25 22:52 02/18/25 22:55 02/18/25 23:00 Temperature Pulse Rate 75 Respiratory Rate 16 Blood Pressure 137/65 Pulse Oximetry 100 100 99 Oxygen Delivery 02/18/25 23:15 02/18/25 23:28 02/18/25 23:30 Temperature Pulse Rate Respiratory Rate 18 Blood Pressure 121/63 Pulse Oximetry 98 98 99 Oxygen Delivery 02/18/25 23:31 02/18/25 23:45 02/18/25 23:46 Temperature Pulse Rate Respiratory Rate 18 18 Blood Pressure 119/74 130/67 Pulse Oximetry 100 99 99 Oxygen Delivery 02/19/25 01:05 02/19/25 04:43 Temperature 97.8 F 98.3 F Pulse Rate 82 70 Respiratory Rate 18 16 Blood Pressure 160/66 H 121/48 L Pulse Oximetry 100 98 Oxygen Delivery Intake/Output Intake/Output: Intake & Output 02/16/25 02/17/25 02/18/25 02/19/25 23:59 23:59 23:59 23:59 Intake Total 500 50 Balance 500 50 Meds/Results Medications: Active Medications Generic Name Dose Route Start Last Admin Trade Name Freq PRN Reason Stop Dose Admin Acetaminophen 650 mg 02/19/25 00:01 Acetaminophen 325 Mg Tablet PO Q4H PRN Mild Pain (1-3) or Fever Hydrocodone Bitart/Acetaminophen 1 tab 02/19/25 00:01 02/19/25 01:26 Hydrocodone/Acetaminophen (*Crx) 5-325 Mg Tablet PO 1 tab Q4H PRN Administration Pain Rated 4-6 Atorvastatin Calcium 10 mg 02/19/25 09:00 Atorvastatin 10 Mg Tablet PO DAILY [facility] Fish Oil 1 gm 02/19/25 09:00 Burtrum 3 Polyunsat Fatty Acids 1 Gm Cap PO QAM [facility] Ondansetron HCl 4 mg 02/19/25 00:01 Ondansetron Inj 4 Mg/2 Ml Vial IV PUSH Q4H PRN Nausea Tamsulosin HCl 0.4 mg 02/19/25 09:00 Tamsulosin Hcl 0.4 Mg Capsule PO DAILY [facility] Vitamin D 50 mcg 02/19/25 09:00 Cholecalciferol (Vitamin D3) 25 Mcg (1,000 Units) Tablet PO DAILY [facility] Radiology Results: ITS Impressions Shoulder X-Ray 02/18/25 18:11 Impression: Fracture detailed above Head CT 02/18/25 18:26 IMPRESSION: No acute intracranial hemorrhage or extra axial fluid collections. All CT scans at this facility are performed using low dose modulation techniques as appropriate to perform exam including the following: automated exposure control; use of iterative reconstruction technique; adjustment of the mA and/or kV according to patient size (this includes techniques or standardized protocols for targeted exams where dose is matched to indication/reason for exam). Cervical Spine CT 02/18/25 18:35 IMPRESSION: No acute fracture or subluxation. All CT scans at this facility are performed using low dose modulation techniques as appropriate to perform exam including the following: automated exposure control; adjustment of the mA and/or kV according to patient size (this includes techniques or standardized protocols for targeted exams where does is matched to indication/reason for exam; i.e. extremities or head); use of iterative reconstruction technique). Labs Labs: Laboratory Results - last 24 hr 02/18/25 02/18/25 21:39 21:49 WBC 11.9 H RBC 3.50 L Hgb 10.6 L Hct 33.2 L MCV 94.9 MCH 30.3 MCHC 31.9 L RDW 13.2 Plt Count 268 MPV 9.4 Immature Gran % (Auto) 0.6 H Neut % (Auto) 75.3 H Lymph % (Auto) 13.9 L [place] % (Auto) 9.6 H Eos % (Auto) 0.3 Baso % (Auto) 0.3 Lymph # (Auto) 1.66 [place] # (Auto) 1.2 H Eos # (Auto) 0.0 Baso # (Auto) 0.0 Abs Immat Gran (auto) 0.07 H Absolute Neuts (auto) 9.0 H Absolute Nucleated RBC 0.000 Nucleated RBC % 0.0 Sodium 143 Potassium 3.9 Chloride 108 H Carbon Dioxide 24 Anion Gap 11 BUN 48 H Creatinine 1.22 Estim Creat Clear Calc 39 Estimated GFR 57 L Glucose 111 H Calcium 9.8 Total Bilirubin 1.1 AST 37 ALT 18 Alkaline Phosphatase 76 Total Protein 7.5 Albumin 4.3 Urine Color Yellow Urine Appearance Cloudy H Urine pH 5.0 Ur Specific [place] 1.022 Urine Protein 1+ H Urine Glucose (UA) Negative Urine Ketones Trace H Ur Blood (Man) Negative Urine Nitrate Negative Urine Bilirubin Negative Urine Urobilinogen 1.0 Add Ur Microanalysis Reviewed Leukocyte Esterase Rfl Negative Urine RBC 0-2 Urine WBC 0-5 Ur Squamous Epith Cells Occasional Urine Bacteria None seen Urine Casts >20 Hyaline Casts Present
[2025-02-19 08:33] VITALS: O2SAT 97
[2025-02-19] MEDS: TAMSULOSIN HCL 0.4 MG CAPSULE PO (08:44)
[2025-02-19] MEDS: CHOLECALCIFEROL (VITAMIN D3) 25 MCG (1,000 UNITS) TABLET 50 MCG PO (08:45)
[2025-02-19] MEDS: OMEGA 3 POLYUNSAT FATTY ACIDS 1 GM CAP PO (08:45)
[2025-02-19] MEDS: ATORVASTATIN 10 MG TABLET PO (08:45)
--- NOTE | 2025-02-19 13:59 | PM.CNOR ---
Assessment and Plan Assessment and plan (1) Displaced fracture of proximal end of right humerus: Code(s): S42.201A - Unspecified fracture of upper end of right humerus, initial encounter for closed fracture Status: Acute Assessment and Plan: Radiographs of the right shoulder reveal a comminuted displaced fracture of the proximal humerus extending into the humeral neck, severe degenerative changes and soft tissue swelling. The fracture type and injury as well as radiographs discussed with the patient. Operative and nonoperative treatment options reviewed. After radiographic review by Dr. Hurd, recommended nonoperative treatment. Risk of nonunion, malunion or late displacement discussed. Stiffness, pain and possible dysfunction of the joint discussed. Fracture precautions and activity restrictions reviewed. The patient verbalizes understanding. Continue use of shoulder immobilizer. Okay to remove for hygiene purposes only. Ice. Pain control. 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 Dispo: [facility] vs. Home with Home Health Care Coordination consult requested. PT/OT. MARIB[facility] ECHEVERRIA. Will plan for outpatient f/u in the orthopedic clinic in 5-6 weeks. Plan Reviewed history, exam, radiographs and current labs with attending MD and covering surgeon, Dr. Hurd, who agrees with current plan as indicated above. No further recommendations from Dr. Hurd at this time. History of Present Illness HPI Consult date: 02/19/25 Chief complaint: R humerus fx dominant extremity; poss PT/placement Narrative: 79-year-old male admitted after a fall at home tripping over a cord and landing into his fireplace. Radiographs of the right shoulder in the emergency room reveal a comminuted displaced fracture of the proximal humerus extending into the humeral neck, severe degenerative changes and soft tissue swelling. patient was initially set to be discharged home in a shoulder immobilizer however he was unable to be taking care of at home and therefore, was admitted for further evaluation orthopedic consult. Review of Systems Review of Systems: All systems reviewed & are unremarkable except as noted in HPI and below Constitutional: Constitutional: Denies chills, Denies headache(s) and Denies night sweats Eyes: Eyes: Denies blurry vision ENT: Reports Normal hearing present, Denies dysphagia, Denies headache(s), Denies nasal congestion, Denies nasal discharge and Denies neck pain Cardiovascular: Cardiovascular: Denies chest pain, Denies lightheadedness, Denies palpitations and Denies dyspnea Respiratory: Respiratory: Denies chest congestion, Denies cough, Denies dyspnea and Denies wheezing Gastrointestinal: Gastrointestinal: Denies abdominal pain, Denies constipation, Denies dysphagia, Denies nausea and Denies vomiting Genitourinary: Genitourinary: Denies dysuria and Reports urinary frequency Musculoskeletal: Musculoskeletal: Denies back pain, Reports joint swelling (Right Shoulder ), Denies neck pain, Denies numbness and Reports stiffness (Right Shoulder ) Integumentary/Breasts: Comments: Bruising RIGHT upper arm Neurologic: Reports Normal hearing present, Denies Abnormal speech present, Denies confusion, Denies headache(s) and Denies numbness Psychiatric: Psychiatric: Denies anxiety, Denies confusion and Denies depression Endocrine: Endocrine: Denies palpitations Allergic/Immunologic: Allergic/Immunologic: Denies wheezing PMFSH Past Medical History Medical History BPH (benign prostatic hyperplasia) Diabetes Surgical History Surgical History History of ventral hernia repair Robotic assisted laparoscopic extended total extraperitoneal incarcerated ventral hernia repair with Synecor mesh ( [id number] ). 11/06/23 History of prostatectomy Family History Family History Father Heart disease Other Hypertension Social History Social History Smoking packs per day: 1.0 Smoking cigarettes per day: 20.0 Years smoked: 25 Smoking pack-years: 25.00 Smoking status: Former smoker Tobacco type: cigarettes Smoking end date: 04/08/03 Alcohol intake: never Substance use: never Substance use type: does not use Last use: 11/26/83 Lack of Transportation: No Lack of Food: Never True Current Housing: I Have Housing Concerned About Future Housing: No Difficulty Paying Gas/Electric Bills: YES Difficulty Paying for Meds: YES Currently Unemployed: No Education: High School Diploma/GED Difficulty w/ Childcare or Family Care: No Living arrangements: alone Spiritual care concerns: No Meds Home Medications and Allergies Home Medications ?Medication ?Instructions ?Recorded ?Confirmed ?Type aspirin 81 mg tablet,delayed 81 mg PO DAILY 09/11/23 02/19/25 History release cholecalciferol (vitamin D3) 50 50 mcg PO DAILY 09/11/23 02/19/25 History mcg (2,000 unit) capsule docosahexaenoic acid (dha)-epa 120 1 cap PO DAILY 09/11/23 02/19/25 History mg-180 mg capsule (Fish Oil) lisinopril 20 mg tablet 20 mg PO DAILY 09/11/23 02/19/25 History mecobalamin (vitamin B12) 1,000 1,000 mcg PO DAILY 09/11/23 02/19/25 History mcg lozenges tamsulosin 0.4 mg capsule 0.4 mg PO DAILY 09/11/23 02/19/25 History atorvastatin 10 mg tablet (Lipitor) 10 mg PO DAILY 02/19/25 02/19/25 History enzalutamide 80 mg tablet (Xtandi) 160 mg PO DAILY 02/19/25 02/19/25 History ibuprofen 200 mg capsule 400 mg PO BID PRN pain 02/19/25 02/19/25 History Allergies Allergy/AdvReac Type Severity Reaction Status Date / Time No Known Allergies Allergy Verified 02/19/25 01:28 Vital Signs Vital Signs - 24 hr 02/18/25 17:22 02/18/25 21:04 02/18/25 21:18 Temperature 37.3 C Pulse Rate 83 74 75 Respiratory Rate 20 15 16 Blood Pressure 114/54 L 125/74 123/51 L Pulse Oximetry 99 100 99 Oxygen Delivery Room Air Room Air 02/18/25 22:52 02/18/25 22:55 02/18/25 23:00 Temperature Pulse Rate 75 Respiratory Rate 16 Blood Pressure 137/65 Pulse Oximetry 100 100 99 Oxygen Delivery 02/18/25 23:15 02/18/25 23:28 02/18/25 23:30 Temperature Pulse Rate Respiratory Rate 18 Blood Pressure 121/63 Pulse Oximetry 98 98 99 Oxygen Delivery 02/18/25 23:31 02/18/25 23:45 02/18/25 23:46 Temperature Pulse Rate Respiratory Rate 18 18 Blood Pressure 119/74 130/67 Pulse Oximetry 100 99 99 Oxygen Delivery 02/19/25 01:05 02/19/25 04:43 02/19/25 08:33 Temperature 36.6 C 36.8 C Pulse Rate 82 70 Respiratory Rate 18 16 Blood Pressure 160/66 H 121/48 L Pulse Oximetry 100 98 97 Oxygen Delivery Room Air 02/19/25 08:45 02/19/25 09:26 02/19/25 11:19 Temperature Pulse Rate Respiratory Rate Blood Pressure Pulse Oximetry Oxygen Delivery Room Air Room Air Room Air Exam Const: General: no acute distress HENMT: Mouth: Yes moist mucous membranes Eyes: Pupils: Equal, round and reactive pupils present Neck: Neck: supple and no JVD Resp: Effort & Inspection: normal respiratory effort Cardio: Rate: regular rate Rhythm: regular rhythm GI: Inspection: non-distended GI Palp: Yes Soft to palpation and No Tenderness to palpation present (GI) Skin: Wounds: no wounds Other: Bruising RUE/Shoulder Neuro: Cranial nerves: Yes Equal, round and reactive pupils present Cognition (Neuro): normal cognition Speech: normal speech Motor exam (neuro): strength not 5/5 throughout (decreased strenght RUE due to fracture ) and Abnormal motor strength present (decreased RUE ) Sensory Exam: normal sensation Extrem: Right upper extremity: normal capillary refill, shoulder/upper arm tenderness of the proximal humerus, swelling of the proximal humerus, of the mid-shaft humerus and of the shoulder joint, abnormal ROM (strength/ROM exam testing limited due to fracture ) held in an abnormal fashion in ADduction, ecchymosis (Right shoulder) and deformity of the proximal humerus anteriorly and anterolaterally; ROM limited, elbow/forearm normal to inspection, normal ROM and distal pulses intact; no tenderness and no swelling, wrist normal to inspection, abnormal ROM, normal vascular exam, radial pulse present 2+ and ulnar pulse present 2+; no tenderness and no swelling and Extremity exam: right hand normal to inspection, normal capillary refill, neuromotor exam normal wrist extension normal and thumb ADduction normal, neurosensory exam normal radial nerve sensory function normal, ulnar nerve sensory function normal, median nerve sensory function normal and digital nerve sensory function normal, tendon exam normal of all digits and vascular exam radial pulse present, ulnar pulse present and normal capillary refill; no tenderness Left upper extremity: normal to inspection, full ROM, normal capillary refill, shoulder/upper arm inspection abnormal and axillary nerve sensory function normal; no tenderness, no swelling, no ecchymosis, no crepitus and no unsual warmth, elbow/forearm normal to inspection; no tenderness and no swelling and wrist normal to inspection, radial pulse present and ulnar pulse present; no tenderness and no swelling Right lower extremity: normal to inspection, full ROM, normal capillary refill and hip/thigh Details: normal to inspection and normal ROM; no tenderness and no swelling Left lower extremity: normal to inspection, full ROM, normal capillary refill and hip/thigh Details: normal to inspection and normal ROM; no tenderness and no swelling Results Labs 02/18/25 21:49 02/18/25 21:49 Labs: Abnormal lab results 02/18/25 02/18/25 Range/Units 21:39 21:49 WBC 11.9 H (4.5-10.0) K/mm3 RBC 3.50 L (4.6-6.20) M/mm3 Hgb 10.6 L (14.0-18.0) g/dL Hct 33.2 L (42.0-52.0) % MCHC 31.9 L (32-36) g/dl Immature Gran % (Auto) 0.6 H (0-0.5) % Neut % (Auto) 75.3 H (45.5-73.1) % Lymph % (Auto) 13.9 L (18.3-44.2) % [place] % (Auto) 9.6 H (2.6-8.5) % [place] # (Auto) 1.2 H (0.1-0.6) K/mm3 Abs Immat Gran (auto) 0.07 H (0.00-0.031) K/mm3 Absolute Neuts (auto) 9.0 H (1.3-6.7) K/mm3 Chloride 108 H (98-107) mmol/L BUN 48 H (9-20) mg/dL Estimated GFR 57 L (59 - ) Glucose 111 H (65-110) mg/dL Urine Appearance Cloudy H (Clear) Urine Protein 1+ H (Negative) mg/dL Urine Ketones Trace H (Negative) mg/dL H & H 02/18/25 Range/Units 21:49 Hgb 10.6 L (14.0-18.0) g/dL Hct 33.2 L (42.0-52.0) % All other labs normal. Fracture/Casting/Strapping Pre Procedure Consent was obtained, Procedures/risks were explained, Questions were answered, Correct patient identified and Correct side and site confirmed Episode of Care New episode (Right Shoulder ) Fracture Care Clavicle/scapula/humerus/shoulder Clavicle, Scapula, Humerus, Shoulder: CLOSED TX PROXIMAL HUMERAL FX W/O MANIPULATION Application Exam of Affected Area: Color: Abnormal (Ecchymosis ), Temp: Normal, Pulse: Normal, Blanching: Normal, Capillary Refill: Normal and Sensory Exam: Normal Swelling: Yes and Tenderness: Yes Skin Apperance: Intact Patient Tolerated Procedure Well: Yes Post Procedure Patient tolerated the procedure well?: Tolerated procedure well
[2025-02-19 14:00] VITALS: BP 122/47; PULSE 72; RESP 16; TEMP 36.4; O2SAT 100
[2025-02-19 22:00] VITALS: BP 121/44; PULSE 69; RESP 16; TEMP 36.7; O2SAT 98
[2025-02-20 05:15] LABS: Hematocrit 29.0 % (42.0-52.0); Hemoglobin 8.9 g/dL (14.0-18.0); Immature Granulocyte Percent A 0.4 % (0-0.5); Lymphocytes Absolute Auto 2.86 K/mm3 (0.9-3.2); Mean Corpuscular HGB Conc 30.7 g/dl (32-36); Mean Corpuscular Hemoglobin 30.5 pg (26-34); Mean Corpuscular Volume 99.3 fl (80-100); Nucleated Red Blood Cells Absolute Auto 0.000 K/mm3 (0.0-0.012); Nucleated Red Blood Cells Perc 0.0 % (0.0-0.2); Platelet Count Result 235 k/mm3 (150-375); Red Blood Count 2.92 M/mm3 (4.6-6.20); White Blood Count 8.5 K/mm3 (4.5-10.0)
[2025-02-20 06:00] VITALS: BP 160/72; PULSE 70; RESP 18; TEMP 36.4; O2SAT 99
--- NOTE | 2025-02-20 07:37 | P.PNIM_ITS ---
Progress Note: A&P Assessment and Plan (1) Closed right humeral fracture: Code(s): S42.301A - Unspecified fracture of shaft of humerus, right arm, initial encounter for closed fracture Status: Acute Assessment and Plan: - XR R shoulder with comminuted displaced fracture of the proximal humerus extending into the humeral neck -Orthopedic surgeon recommended shoulder immobilizer and discharged home with follow-up in the office. The patient's son report he cannot take care of himself at home as he cannot lift himself up. - patient is not safe to discharge home as he lives alone - PT/OT recommended SNF, pending placement. Fall precautions, ambulate with assistance. - continue pain control with scheduled acetaminophen, PRN oxycodone (2) BPH (benign prostatic hyperplasia): Code(s): N40.0 - Benign prostatic hyperplasia without lower urinary tract symptoms Status: Acute Assessment and Plan: - continue home Flomax - monitor urine output (3) Hypertension: Code(s): I10 - Essential (primary) hypertension Status: Acute Assessment and Plan: - continue home lisinopril Plan DVT prophylaxis: Lovenox Code status: full code Dispo: [facility] Subjective Date/time seen: 02/20/25 07:37 Interval history: Patient seen and examined at bedside. Still having pain. Pain regimen adjusted. Discussed plan to wait for rehab placement, patient agreeable. Exam Narrative: General: NAD Eyes: EOMI ENT: neck supple Cardiovascular: Regular rate and rhythm, radial pulses 2+ Respiratory: Clear to auscultation, respirations even and unlabored on RA Gastrointestinal: Soft, non tender Genitourinary: no suprapubic tenderness Musculoskeletal: RUE swelling/bruising Skin: warm, dry Neuro: Alert. Sensation intact RUE. Psych: Mood appropriate Objective Data Vital Signs Vital Signs: Vital Signs - 24 hr 02/19/25 08:33 02/19/25 08:45 02/19/25 09:26 Temperature Pulse Rate Respiratory Rate Blood Pressure Pulse Oximetry 97 Oxygen Delivery Room Air Room Air Room Air 02/19/25 11:19 02/19/25 14:00 02/19/25 20:00 Temperature 97.6 F Pulse Rate 72 Respiratory Rate 16 Blood Pressure 122/47 L Pulse Oximetry 100 Oxygen Delivery Room Air Room Air 02/19/25 22:00 02/20/25 06:00 Temperature 98.1 F 97.6 F Pulse Rate 69 70 Respiratory Rate 16 18 Blood Pressure 121/44 L 160/72 H Pulse Oximetry 98 99 Oxygen Delivery Intake/Output Intake/Output: Intake & Output 02/17/25 02/18/25 02/19/25 02/20/25 23:59 23:59 23:59 23:59 Intake Total 500 410 300 Output Total 350 Balance 500 410 -50 Meds/Results Medications: Active Medications Generic Name Dose Route Start Last Admin Trade Name Ygq PRN Reason Stop Dose Admin Acetaminophen 650 mg 02/19/25 00:01 Acetaminophen 325 Mg Tablet PO Q4H PRN Mild Pain (1-3) or Fever Hydrocodone Bitart/Acetaminophen 1 tab 02/19/25 00:01 02/19/25 18:18 Hydrocodone/Acetaminophen (*Crx) 5-325 Mg Tablet PO 1 tab Q4H PRN Administration Pain Rated 4-6 Atorvastatin Calcium 10 mg 02/19/25 09:00 02/19/25 08:45 Atorvastatin 10 Mg Tablet PO 10 mg DAILY MEGHA Administration Enoxaparin Sodium 40 mg 02/20/25 09:00 Enoxaparin 40 Mg/0.4 Ml Syringe SUB-Q DAILY [facility] Fish Oil 1 gm 02/19/25 09:00 02/19/25 08:45 [place] 3 Polyunsat Fatty Acids 1 Gm Cap PO 1 gm QAM MEGHA Administration Lisinopril 20 mg 02/19/25 14:05 02/19/25 14:43 Lisinopril 20 Mg Tablet PO 20 mg DAILY MEGHA Administration Ondansetron HCl 4 mg 02/19/25 00:01 Ondansetron Inj 4 Mg/2 Ml Vial IV PUSH Q4H PRN Nausea Tamsulosin HCl 0.4 mg 02/19/25 09:00 02/19/25 08:44 Tamsulosin Hcl 0.4 Mg Capsule PO 0.4 mg DAILY MEGHA Administration Vitamin D 50 mcg 02/19/25 09:00 02/19/25 08:45 Cholecalciferol (Vitamin D3) 25 Mcg (1,000 Units) Tablet PO 50 mcg DAILY MEGHA Administration Radiology Results: ITS Impressions Shoulder X-Ray 02/18/25 18:11 Impression: Fracture detailed above Head CT 02/18/25 18:26 IMPRESSION: No acute intracranial hemorrhage or extra axial fluid collections. All CT scans at this facility are performed using low dose modulation techniques as appropriate to perform exam including the following: automated exposure control; use of iterative reconstruction technique; adjustment of the mA and/or kV according to patient size (this includes techniques or standardized protocols for targeted exams where dose is matched to indication/reason for exam). Cervical Spine CT 02/18/25 18:35 IMPRESSION: No acute fracture or subluxation. All CT scans at this facility are performed using low dose modulation techniques as appropriate to perform exam including the following: automated exposure control; adjustment of the mA and/or kV according to patient size (this includes techniques or standardized protocols for targeted exams where does is matched to indication/reason for exam; i.e. extremities or head); use of iterative reconstruction technique). Labs Labs: Laboratory Results - last 24 hr 02/20/25 04:29 WBC 8.5 RBC 2.92 L Hgb 8.9 L Hct 29.0 L MCV 99.3 MCH 30.5 MCHC 30.7 L RDW 13.1 Plt Count 235 MPV 9.8 Immature Gran % (Auto) 0.4 Neut % (Auto) 53.2 Lymph % (Auto) 33.6 [place] % (Auto) 10.3 H Eos % (Auto) 2.1 Baso % (Auto) 0.4 Lymph # (Auto) 2.86 [place] # (Auto) 0.9 H Eos # (Auto) 0.2 Baso # (Auto) 0.0 Abs Immat Gran (auto) 0.03 Absolute Neuts (auto) 4.5 Absolute Nucleated RBC 0.000 Nucleated RBC % 0.0
[2025-02-20] MEDS: ATORVASTATIN 10 MG TABLET PO (09:03)
[2025-02-20] MEDS: ENOXAPARIN 40 MG/0.4 ML SYRINGE SUB-Q (09:03)
[2025-02-20] MEDS: CHOLECALCIFEROL (VITAMIN D3) 25 MCG (1,000 UNITS) TABLET 50 MCG PO (09:03)
[2025-02-20] MEDS: OMEGA 3 POLYUNSAT FATTY ACIDS 1 GM CAP PO (09:03)
[2025-02-20] MEDS: TAMSULOSIN HCL 0.4 MG CAPSULE PO (09:03)
[2025-02-20] MEDS: HYDROcodone/acetaminophen (*CRX) 5-325 MG TABLET 1 TAB PO (09:07)
[2025-02-20] MEDS: ACETAMINOPHEN 325 MG TABLET 650 MG PO ×3 (12:03→23:14)
[2025-02-20 14:00] VITALS: BP 139/48; PULSE 63; RESP 18; TEMP 36.5; O2SAT 99
[2025-02-20] MEDS: oxyCODONE HCL (*CRX) 2.5 MG TAB IR PO (14:39)
[2025-02-20 22:00] VITALS: BP 154/55; PULSE 60; RESP 18; TEMP 36.8; O2SAT 98
[2025-02-21] MEDS: ACETAMINOPHEN 325 MG TABLET 650 MG PO ×4 (05:17→23:32)
[2025-02-21 05:45] LABS: Hematocrit 28.3 % (42.0-52.0); Hemoglobin 9.1 g/dL (14.0-18.0); Immature Granulocyte Percent A 0.3 % (0-0.5); Lymphocytes Absolute Auto 3.01 K/mm3 (0.9-3.2); Mean Corpuscular HGB Conc 32.2 g/dl (32-36); Mean Corpuscular Hemoglobin 30.6 pg (26-34); Mean Corpuscular Volume 95.3 fl (80-100); Nucleated Red Blood Cells Absolute Auto 0.000 K/mm3 (0.0-0.012); Nucleated Red Blood Cells Perc 0.0 % (0.0-0.2); Platelet Count Result 250 k/mm3 (150-375); Red Blood Count 2.97 M/mm3 (4.6-6.20); White Blood Count 7.1 K/mm3 (4.5-10.0)
[2025-02-21 06:00] VITALS: BP 160/62; PULSE 60; RESP 18; TEMP 36.2; O2SAT 99
--- NOTE | 2025-02-21 07:08 | P.PNIM_ITS ---
Progress Note: A&P Assessment and Plan (1) Closed right humeral fracture: Code(s): S42.301A - Unspecified fracture of shaft of humerus, right arm, initial encounter for closed fracture Status: Acute Assessment and Plan: - XR R shoulder with comminuted displaced fracture of the proximal humerus extending into the humeral neck -Orthopedic surgeon recommended shoulder immobilizer and discharged home with follow-up in the office. The patient's son reports he cannot take care of himself at home as he cannot lift himself up. - patient is not safe to discharge home as he lives alone - PT/OT recommended SNF, pending placement. Fall precautions, ambulate with assistance. - continue pain control with scheduled acetaminophen, PRN oxycodone (2) BPH (benign prostatic hyperplasia): Code(s): N40.0 - Benign prostatic hyperplasia without lower urinary tract symptoms Status: Acute Assessment and Plan: - continue home Flomax - monitor urine output (3) Hypertension: Code(s): I10 - Essential (primary) hypertension Status: Acute Assessment and Plan: - continue home lisinopril Plan DVT prophylaxis: Lovenox Code status: full code Dispo: [facility] Subjective Date/time seen: 02/21/25 07:08 Interval history: Patient seen and examined at bedside. Still having some R arm pain, Tylenol helps. Having bowel movements. Review of Systems Review of Systems: All systems reviewed & are unremarkable except as noted in HPI and below Exam Narrative: General: NAD Eyes: EOMI ENT: neck supple Cardiovascular: Regular rate and rhythm, radial pulses 2+ Respiratory: Clear to auscultation, respirations even and unlabored on RA Gastrointestinal: Soft, non tender Genitourinary: no suprapubic tenderness Musculoskeletal: RUE swelling/bruising, RUE in sling Skin: warm, dry Neuro: Alert. Sensation intact RUE. Psych: Mood appropriate Objective Data Vital Signs Vital Signs: Vital Signs - 24 hr 02/20/25 14:00 02/20/25 20:00 02/20/25 22:00 Temperature 97.7 F 98.3 F Pulse Rate 63 60 Respiratory Rate 18 18 Blood Pressure 139/48 L 154/55 H Pulse Oximetry 99 98 Oxygen Delivery Room Air 02/21/25 06:00 Temperature 97.1 F L Pulse Rate 60 Respiratory Rate 18 Blood Pressure 160/62 H Pulse Oximetry 99 Oxygen Delivery Intake/Output Intake/Output: Intake & Output 02/18/25 02/19/25 02/20/25 02/21/25 23:59 23:59 23:59 23:59 Intake Total 347 096 0496 120 Output Total 500 250 Balance 500 410 970 -130 Meds/Results Medications: Active Medications Generic Name Dose Route Start Last Admin Trade Name Freq PRN Reason Stop Dose Admin Acetaminophen 650 mg 02/20/25 12:00 02/21/25 05:17 Acetaminophen 325 Mg Tablet PO 650 mg Q6H MEGHA Administration Atorvastatin Calcium 10 mg 02/19/25 09:00 02/20/25 09:03 Atorvastatin 10 Mg Tablet PO 10 mg DAILY MEGHA Administration Enoxaparin Sodium 40 mg 02/20/25 09:00 02/20/25 09:03 Enoxaparin 40 Mg/0.4 Ml Syringe SUB-Q 40 mg DAILY MEGHA Administration Fish Oil 1 gm 02/19/25 09:00 02/20/25 09:03 [place] 3 Polyunsat Fatty Acids 1 Gm Cap PO 1 gm QAM MEGHA Administration Lisinopril 20 mg 02/19/25 14:05 02/20/25 09:04 Lisinopril 20 Mg Tablet PO 20 mg DAILY MEGHA Administration Ondansetron HCl 4 mg 02/19/25 00:01 Ondansetron Inj 4 Mg/2 Ml Vial IV PUSH Q4H PRN Nausea Oxycodone HCl 2.5 mg 02/20/25 11:06 02/20/25 14:39 Oxycodone Hcl (*Crx) 2.5 Mg Tab Ir PO 2.5 mg Q4H PRN Administration Pain Rated 4-6 Oxycodone HCl 5 mg 02/20/25 11:06 Oxycodone Hcl (*Crx) 5 Mg Tab Ir PO Q4H PRN Pain Rated 7-10 Tamsulosin HCl 0.4 mg 02/19/25 09:00 02/20/25 09:03 Tamsulosin Hcl 0.4 Mg Capsule PO 0.4 mg DAILY MEGHA Administration Vitamin D 50 mcg 02/19/25 09:00 02/20/25 09:03 Cholecalciferol (Vitamin D3) 25 Mcg (1,000 Units) Tablet PO 50 mcg DAILY MEGHA Administration Radiology Results: ITS Impressions Shoulder X-Ray 02/18/25 18:11 Impression: Fracture detailed above Head CT 02/18/25 18:26 IMPRESSION: No acute intracranial hemorrhage or extra axial fluid collections. All CT scans at this facility are performed using low dose modulation techniques as appropriate to perform exam including the following: automated exposure control; use of iterative reconstruction technique; adjustment of the mA and/or kV according to patient size (this includes techniques or standardized protocols for targeted exams where dose is matched to indication/reason for exam). Cervical Spine CT 02/18/25 18:35 IMPRESSION: No acute fracture or subluxation. All CT scans at this facility are performed using low dose modulation techniques as appropriate to perform exam including the following: automated exposure control; adjustment of the mA and/or kV according to patient size (this includes techniques or standardized protocols for targeted exams where does is matched to indication/reason for exam; i.e. extremities or head); use of iterative reconstruction technique). Labs Labs: Laboratory Results - last 24 hr 02/21/25 05:03 WBC 7.1 RBC 2.97 L Hgb 9.1 L Hct 28.3 L MCV 95.3 MCH 30.6 MCHC 32.2 RDW 12.9 Plt Count 250 MPV 9.5 Immature Gran % (Auto) 0.3 Neut % (Auto) 43.4 L Lymph % (Auto) 42.6 [place] % (Auto) 10.2 H Eos % (Auto) 3.1 Baso % (Auto) 0.4 Lymph # (Auto) 3.01 [place] # (Auto) 0.7 H Eos # (Auto) 0.2 Baso # (Auto) 0.0 Abs Immat Gran (auto) 0.02 Absolute Neuts (auto) 3.1 Absolute Nucleated RBC 0.000 Nucleated RBC % 0.0 Quality VTE Prophylaxis VTE prophylaxis: pharmacologic ordered
[2025-02-21] MEDS: oxyCODONE HCL (*CRX) 2.5 MG TAB IR PO (09:04)
[2025-02-21] MEDS: ATORVASTATIN 10 MG TABLET PO (09:04)
[2025-02-21] MEDS: OMEGA 3 POLYUNSAT FATTY ACIDS 1 GM CAP PO (09:04)
[2025-02-21] MEDS: CHOLECALCIFEROL (VITAMIN D3) 25 MCG (1,000 UNITS) TABLET 50 MCG PO (09:05)
[2025-02-21] MEDS: ENOXAPARIN 40 MG/0.4 ML SYRINGE SUB-Q (09:05)
[2025-02-21] MEDS: TAMSULOSIN HCL 0.4 MG CAPSULE PO (09:05)
[2025-02-21 13:53] VITALS: BP 102/50; PULSE 72; RESP 16; TEMP 36.6; O2SAT 98
[2025-02-21 21:17] VITALS: BP 148/52; PULSE 62; RESP 18; TEMP 36.3; O2SAT 98
[2025-02-22 04:35] LABS: Hematocrit 29.6 % (42.0-52.0); Hemoglobin 9.4 g/dL (14.0-18.0); Immature Granulocyte Percent A 0.5 % (0-0.5); Lymphocytes Absolute Auto 3.16 K/mm3 (0.9-3.2); Mean Corpuscular HGB Conc 31.8 g/dl (32-36); Mean Corpuscular Hemoglobin 30.0 pg (26-34); Mean Corpuscular Volume 94.6 fl (80-100); Nucleated Red Blood Cells Absolute Auto 0.000 K/mm3 (0.0-0.012); Nucleated Red Blood Cells Perc 0.0 % (0.0-0.2); Platelet Count Result 261 k/mm3 (150-375); Red Blood Count 3.13 M/mm3 (4.6-6.20); White Blood Count 7.8 K/mm3 (4.5-10.0)
[2025-02-22 05:37] VITALS: BP 150/64; PULSE 65; RESP 16; TEMP 36.5; O2SAT 100
[2025-02-22] MEDS: ACETAMINOPHEN 325 MG TABLET 650 MG PO ×2 (05:51→11:51)
[2025-02-22] MEDS: TAMSULOSIN HCL 0.4 MG CAPSULE PO (08:29)
[2025-02-22] MEDS: OMEGA 3 POLYUNSAT FATTY ACIDS 1 GM CAP PO (08:29)
[2025-02-22] MEDS: ATORVASTATIN 10 MG TABLET PO (08:30)
[2025-02-22] MEDS: ENOXAPARIN 40 MG/0.4 ML SYRINGE SUB-Q (08:30)
[2025-02-22] MEDS: CHOLECALCIFEROL (VITAMIN D3) 25 MCG (1,000 UNITS) TABLET 50 MCG PO (08:30)
--- NOTE | 2025-02-22 09:18 | P.DS_ITS ---
DS: Admitting Diagnosis Discharge Date 02/22/25 Admitting Diagnosis - closed right humeral fracture - BPH - HTN DS: Discharge Diagnosis Discharge Diagnosis (1) Closed right humeral fracture: Code(s): S42.301A - Unspecified fracture of shaft of humerus, right arm, initial encounter for closed fracture Status: Acute (2) BPH (benign prostatic hyperplasia): Code(s): N40.0 - Benign prostatic hyperplasia without lower urinary tract symptoms Status: Acute (3) Hypertension: Code(s): I10 - Essential (primary) hypertension Status: Acute DS: Summary Hospital Course Reason for hospitalization: - closed right humeral fracture - BPH - HTN Hospital Course: Mr. Tabares, an 79-year-old male with a history of BPH, diabetes, hypertension, and prior ventral hernia repair, was admitted on 02/19/25 following two ground- level falls at home, the most recent resulting in a comminuted, displaced fracture of the right proximal humerus extending into the humeral neck. He initially presented to the ER after tripping over a cord and was found to have significant right shoulder pain but no loss of consciousness or neurologic deficits. Imaging confirmed the fracture, with no acute findings on head or cervical spine CT. Orthopedic surgery was consulted and, after discussion of operative versus nonoperative management, recommended nonoperative treatment with a shoulder immobilizer, ice, pain control, and hand/prenatal teacher strengthening. The patient was not safe for discharge home due to inability to care for himself and lack of available support, so he was admitted for further management and placement planning. During his hospitalization, Mr. Tabares was maintained on fall precautions and ambulated with assistance. He received scheduled acetaminophen and PRN oxycodone for pain, with good effect. His home medications, including lisinopril, tamsul osin, atorvastatin, vitamin D, and enzalutamide, were continued as appropriate. Physical and occupational therapy evaluated the patient and recommended correction facility (SNF) placement due to his functional limitations and need for assistance with activities of daily living. Laboratory studies were notable for a normocytic anemia (Hgb charlie 9.1 g/dL), mild renal insufficiency, and stable e lectrolytes. He remained hemodynamically stable throughout admission, with no evidence of infection or acute decompensation. His pain was well controlled, and he had no further falls or complications. Patient was stable on day of discharge. Discharge planning was coordinated with case management, and arrangements were made for transfer to a SNF for continued rehabilitation and support. Status at Discharge Overall status at discharge: patient is progressing back to baseline Time Spent with Patient Time attestation: Total time spent providing and/or coordinating discharge services: Time spent: Greater than 30 minutes Exam Narrative: General: NAD Eyes: EOMI ENT: neck supple Cardiovascular: Regular rate and rhythm, radial pulses 2+ Respiratory: Clear to auscultation, respirations even and unlabored on RA Gastrointestinal: Soft, non tender Genitourinary: no suprapubic tenderness Musculoskeletal: RUE swelling/bruising, RUE in sling Skin: warm, dry Neuro: Alert. Sensation intact RUE. Psych: Mood appropriate DS: Data Data Completed and Pending Completed studies during hospitalization: ITS Impressions Shoulder X-Ray 02/18/25 18:11 Impression: Fracture detailed above Head CT 02/18/25 18:26 IMPRESSION: No acute intracranial hemorrhage or extra axial fluid collections. All CT scans at this facility are performed using low dose modulation techniques as appropriate to perform exam including the following: automated exposure control; use of iterative reconstruction technique; adjustment of the mA and/or kV according to patient size (this includes techniques or standardized protocols for targeted exams where dose is matched to indication/reason for exam). Cervical Spine CT 02/18/25 18:35 IMPRESSION: No acute fracture or subluxation. All CT scans at this facility are performed using low dose modulation techniques as appropriate to perform exam including the following: automated exposure control; adjustment of the mA and/or kV according to patient size (this includes techniques or standardized protocols for targeted exams where does is matched to indication/reason for exam; i.e. extremities or head); use of iterati ve reconstruction technique). Labs on day of discharge: Labs from last 24 hours 02/22/25 04:05 WBC 7.8 RBC 3.13 L Hgb 9.4 L Hct 29.6 L MCV 94.6 MCH 30.0 MCHC 31.8 L RDW 13.1 Plt Count 261 MPV 9.3 Immature Gran % (Auto) 0.5 Neut % (Auto) 46.6 Lymph % (Auto) 40.4 Dukes % (Auto) 8.8 H Eos % (Auto) 3.3 Baso % (Auto) 0.4 Lymph # (Auto) 3.16 Dukes # (Auto) 0.7 H Eos # (Auto) 0.3 Baso # (Auto) 0.0 Abs Immat Gran (auto) 0.04 H Absolute Neuts (auto) 3.6 Absolute Nucleated RBC 0.000 Nucleated RBC % 0.0 Discharge Plan Discharge Attending physician on discharge: Sterling Foley Consulting providers: Ashwin Hurd; Corrie Wallace Discharging Clinician: Corrie Wallace Anticipated Discharge Date/Time: 02/22/25 09:17 Patient Disposition: SNF Activity: may shower, no driving and follow weight bearing status Diet: regular Discharge Instructions: After radiographic review by Dr. Hurd, recommended nonoperative treatment. Risk of nonunion, malunion or late displacement discussed. Stiffness, pain and possible dysfunction of the joint discussed. Fracture precautions and activity restrictions reviewed. The patient verbalizes understanding. Continue use of shoulder immobilizer. Okay to remove for hygiene purposes only. Ice. Pain control. Hand/prenatal teacher strengthening. PT/OT. NWB RUE. Will plan for outpatient f/u in the orthopedic clinic in 5-6 weeks. Patient Instructions: Antibiotic Form Patient Language: Upper Sorbian Stand Alone Forms: General Discharge Information Follow-up/Referrals: Ashwin Hurd MD [Physician, Orthopedics] - 03/25/25 2:15 pm Discharge Medications: New acetaminophen 325 mg Tablet 650 mg PO Q6H 14 Days Qty: 112 0RF oxycodone 5 mg tablet 2.5 mg PO Q6H PRN (Reason: pain) Qty: 10 0RF Continued aspirin 81 mg tablet,delayed release (DR/EC) 81 mg PO DAILY lisinopril 20 mg tablet 20 mg PO DAILY tamsulosin 0.4 mg capsule 0.4 mg PO DAILY mecobalamin (vitamin B12) 1,000 mcg lozenge 1,000 mcg PO DAILY Rx Instructions: allow to dissolve in mouth OR may chew lightly before swallowing Fish Oil 120-180 mg capsule 1 cap PO DAILY cholecalciferol (vitamin D3) 50 mcg (2,000 unit) capsule 50 mcg PO DAILY atorvastatin [Lipitor] 10 mg tablet 10 mg PO DAILY Xtandi 80 mg tablet 160 mg PO DAILY Discontinued ibuprofen 200 mg capsule 400 mg PO BID PRN (Reason: pain) Date of admission: 02/19/25 11:29 Primary Care Provider: Christofer,Jas Admitting Provider: Candy Sears Attending physician on admission: Candy Sears Condition: Stable
[2025-02-22 14:00] VITALS: BP 114/47; PULSE 73; RESP 16; TEMP 36.4; O2SAT 100
== END 2025-02-22 15:05 | DRG 563 ==
LOC: ANHED 02-19 01:18 → ANH2MED 02-19 01:25
PROVIDERS: Admitting Provider General Practice; Emergency Provider Student in an Organized Health Care Education/Training Program; PCP Internal Medicine; Visit Provider Physician Assistant
DX: S42.291A Other displaced fracture of upper end of right humerus, initial encounter for closed fracture (principal); W18.30XA Fall on same level, unspecified, initial encounter; N40.0 Benign prostatic hyperplasia without lower urinary tract symptoms; E11.9 Type 2 diabetes mellitus without complications; I10 Essential (primary) hypertension; Z87.891 Personal history of nicotine dependence; Z79.82 Long term (current) use of aspirin; Z85.46 Personal history of malignant neoplasm of prostate
CPT/HCPCS: 23605; 36415; 70450; 72125; 73030; 80053; 81001; 85025; 96360; 97110; 97116; 97161; 97166; 97530; 97535; 99285; A9270; G0378; J1650; J7040